=== PATIENT | male | born 1965 | race Caucasian/White ===

== ENCOUNTER 2016-11-13 14:25 | Emergency (ER) | payer OTHER ==
[~2016-11-13 14:25] MED LIST: ALBUAER19 INH; ASPI1TAB83 PO; HYDR1TAB2 PO; HYDR25TA4 PO; LISI-725 PO
[2016-11-13 14:27] VITALS: TEMP 36.4; Ht 180.3 cm
[2016-11-13] MEDS ORDERED: CLN200 PO (14:45)
[2016-11-13] MEDS ORDERED: LISI40TA PO (14:45)
[2016-11-13 16:20] VITALS: BP 125/86; PULSE 60; O2SAT 96
--- NOTE | 2016-11-13 16:27 | DIAGNOSTIC IMAGING REPORT ---
LEFT LOWER EXTREMITY VENOUS DOPPLER HISTORY: Left lower leg pain and edema COMPARISON STUDY: None. FINDINGS: There is normal compressibility, flow, and augmentation within the visualized left lower extremity deep venous system. Of note, the peroneal veins were unable to be visualized. Small amount of peripheral nonocclusive thrombus seen within a superficial vein at the proximal calf. IMPRESSION: No DVT within the left lower extremity. Small amount of peripheral nonocclusive thrombus seen within the superficial vein at the proximal calf. This likely represents chronic thrombus. Electronically signed by: Sean Novak M.D. 11/13/2016 4:25 PM Dictated Date/Time: 11/13/2016 4:24 PM
--- NOTE | 2016-11-13 17:04 | EMERGENCY ROOM VISIT NOTE ---
ED Visit Note First contact with patient: 14:35 Patient evaluated with PA. Patient does have a mild area of erythema and warmth several centimeters across of the left anterior lower leg. DVT study negative for deep thrombosis. Review of management plan of superficial thrombophlebitis.
--- NOTE | 2016-11-13 17:17 | EMERGENCY ROOM VISIT NOTE ---
History First contact with patient: 14:35 Chief Complaint: LEG PAIN,LEG INJURY Stated Complaint: PAIN/SWELLING IN LEFT LEG History of Present Illness The patient is a 51 year old male who presents to the Emergency Room via private vehicle with complaints of "pain/swelling and left leg". Patient states that he has a history of deep vein fibrosis but not a history of blood clots. States that 3-4 days ago just below the knee on the left yu he developed a painful bump. He states this was spontaneous and denies trauma or injury. He states that the last time he developed these he thought they were blood clots but it turned out to be deep vein fibrosis. He states he is an active individual. He rates the pain as a 7/10. He took Tylenol yesterday for the pain. He does smoke but denies any history of blood clots, pulmonary embolism, injury, falls, trauma, chest pain, shortness of breath. Review of Systems A complete 6-point Review of Systems was discussed with the patient, with pertinent positives and negatives listed in the History of Present Illness. All remaining Review of Systems questions can be considered negative unless otherwise specified. Past Medical/Surgical History High blood pressure, bronchitis, emphysema Family History Diabetes, heart disease, blood pressure, cancer, lung disease. Social History Smoking Status: Current Every Day Smoker Social History: Patient lives at home with girlfriend, he does feel safe at home. He admits to tobacco use but denies alcohol use. Tetanus is up-to-date. Current/Historical Medications Scheduled Hydrochlorothiazide (Hctz), 25 MG PO DAILY Lisinopril (Zestril), 20 MG PO BID Sulindac (Sulindac), 200 MG PO BID Allergies Coded Allergies: No Known Allergies (Unverified , 09/28/13) Physical Exam Vital Signs Date Time Temp Pulse Resp B/P Pulse Ox O2 Delivery O2 Flow Rate FiO2 11/13/16 16:20 60 18 125/86 96 Room Air 11/13/16 14:27 36.4 67 18 142/65 95 Room Air Physical Exam VITAL SIGNS - Vital signs and nursing notes were reviewed. Patient is afebrile , his blood pressure is 142/65, he is nontachycardiac and is saturating well on room air 95%. GENERAL -51-year-old male appearing his stated age who is in no acute distress. Communicates well with provider and answers questions appropriately. SKIN - there is evidence of venous insufficiency in the left leg with history of varicosity. No erythema. There is a small palpable ball shaped region in the right superior anterior yu region. This region is slightly tender to palpation. There is no palpable cord in the calf. Negative Homans sign. No evidence of cellulitis. HEAD - NC/AT. EXTREMITIES - patient is neurovascularly intact in the extremities. +5/5 strength noted in UE/LE bilaterally. NEUROLOGIC -Sensory intact to light touch throughout. Medical Decision & Procedures ER Provider Diagnostic Interpretation: LEFT LOWER EXTREMITY VENOUS DOPPLER HISTORY: Left lower leg pain and edema COMPARISON STUDY: None. FINDINGS: There is normal compressibility, flow, and augmentation within the visualized left lower extremity deep venous system. Of note, the peroneal veins were unable to be visualized. Small amount of peripheral nonocclusive thrombus seen within a superficial vein at the proximal calf. IMPRESSION: No DVT within the left lower extremity. Small amount of peripheral nonocclusive thrombus seen within the superficial vein at the proximal calf. This likely represents chronic thrombus. Electronically signed by: Sean Novak M.D. 11/13/2016 4:25 PM Dictated Date/Time: 11/13/2016 4:24 PM Medical Decision Patient was seen and evaluated as above. After obtaining a thorough history and physical examination ultrasound was obtained of the left lower leg to rule out DVT. Negative for DVT. Results as above. Small amount of peripheral nonocclusive thrombus seen within the superficial vein at the proximal calf. This likely represents chronic thrombus. Because this was not deep and was considered a superficial thrombophlebitis left warm compresses will be the best management in this case as the patient is already taking an NSAID. He was educated upon management and instructed to follow-up with his family doctor regarding this. He was told that this was persistent or worsening he is to return for additional ultrasound to rule out DVT. He was educated upon management. He was educated on worrisome symptoms in which to return. He had questions answered prior to discharge and was discharged home in good condition. He is to follow-up with his family doctor regarding today's visit. In the evaluation and treatment of this patient following differential diagnoses were entertained: DVT, superficial phlebitis, cellulitis, venous insufficiency, among others. Impression Primary Impression: Leg pain, left Additional Impression: Peripheral thrombosis Departure Information Dispostion Home / Self-Care Condition GOOD Referrals Juarez Pacheco M.D. (PCP) Patient Instructions A Signature Page, My [facility] [employer] Additional Instructions You were seen in the emergency Department for left leg pain. Ultrasound does NOT reveal any deep vein thrombosis or concerning blood clot in your left leg. There was a superficial blood clot noted but this is not of any concern at this time. ULTRASOUND REVEALS: "No DVT within the left lower extremity. Small amount of peripheral nonocclusive thrombus seen within the superficial vein at the proximal calf. This likely represents chronic thrombus." You may use warm compresses over this and continue regular medications which will help. Please call your family doctor first thing Tuesday morning to schedule follow-up regarding today's visit. Please return to emergency department with any chest pain, shortness of breath, left leg swelling, worsening pain. Please return to the emergency department with any new/concerning symptoms.
== END 2016-11-13 17:31 | disposition home or self-care (01) ==
LOC: C.EDB 14:26 → C.EDD 17:31
DX: I82.812 Embolism and thrombosis of superficial veins of left lower extremity (principal); I10 Essential (primary) hypertension; J43.9 Emphysema, unspecified; F17.200 Nicotine dependence, unspecified, uncomplicated; Z86.718 Personal history of other venous thrombosis and embolism; Z79.899 Other long term (current) drug therapy; Z83.3 Family history of diabetes mellitus; Z82.49 Family history of ischemic heart disease and other diseases of the circulatory system; Z80.9 Family history of malignant neoplasm, unspecified

== ENCOUNTER 2020-09-04 14:40 | Inpatient (IN) ==
--- NOTE | 2020-09-04 15:04 | Emergency Department Note ---
Impression & Plan Acute CHF, Hypoxia ED Provider Note NAME: MONICA SUNSHINE AGE: 55 SEX: M : 1965 ARRIVES VIA: Ambulance INFORMANT: Patient ED PROVIDER(S): Marcellus Helton DO CHIEF COMPLAINT: Shortness of breath HPI: Patient is a 55-year-old male who presents to the ER for shortness of breath. This has been significantly worse over the past 10 days. He does have some intermittent coughing but notes he does not believe that this is significantly worse than what he has had before in the past. He was tested for Covid over a week ago and was negative. He denies any fevers. No loss of taste or smell. He notes over 50 pound weight gain in the past 10 days. Denies any chest pain. No belly pain. No nausea vomiting or diarrhea. He admits to swelling throughout his belly and legs. ROS: See above HPI for pertinent positives & negatives. A total of 10 systems reviewed and were otherwise negative. PAST MEDICAL HISTORY:See Below PAST SURGICAL HISTORY:See Below FAMILY HISTORY:See Below SOCIAL HISTORY:See Below HOME MEDICATIONS:See Below ALLERGIES:See Below VITALS:See Below PHYSICAL EXAMINATION: GENERAL: Sitting up in bed, alert, morbidly obese on 3 L nasal cannula EYE EXAM: normal conjunctiva. OROPHARYNX: no exudate, no erythema, lips, buccal mucosa, and tongue normal and mucous membranes are moist NECK: supple, no nuchal rigidity, no adenopathy, non-tender LUNGS: Clear to auscultation. Normal chest wall mechanics HEART: no murmurs, S1 normal and S2 normal ABDOMEN: abdomen soft, non-tender, normo-active bowel sounds, no masses, no rebound or guarding. BACK: Back is symmetrical on inspection and there is no deformity, no midline tenderness, no CVA tenderness. SKIN: no rashes and no bruising UPPER EXTREMITIES: upper extremities are grossly normal. LOWER EXTREMITIES: Left calf slightly larger than right. pitting edema tracking up to abdomen NEURO EXAM: Normal sensorium, cranial nerves II-XII grossly intact, normal speech, no gross weakness of arms, no gross weakness of legs. MEDICAL DECISION MAKING: Patient is a 55-year-old male who presents ER for 50 pound weight gain and shortness of breath. Upon presentation his pitting edema tracking up to the abdomen. IV was status post orders obtained. Labs showed no significant leukocytosis or anemia. INR unremarkable. BMP with an elevated CO2. Bilirubin LFTs was unremarkable. Troponin was detectable but not positive. proBNP was elevated. Lipase was normal. Covid was negative. Chest x-ray with mild congestion. Patient was given a dose of Lasix. He was updated bedside. Discussed with the hospitalist as he was hypoxic and remained on 3 L nasal cannula throughout his stay in the ER and resting comfortably. Triage Nursing notes reviewed. Prior medical records reviewed Vital Signs: reviewed and remarkable for HTN and hypoxia Differential diagnosis: Differential diagnoses includes but is not limited to pneumonia, bronchitis, COPD/Asthma exacerbation, pneumothorax, pulmonary embolism, congestive heart failure, acute coronary syndrome ER treatment provided: See below Diagnostics interpreted by me: ECG: Sinus rhythm rate 70 Normal axis No PVCs TWI in the septal leads Normal QTC Cardiac Monitoring: An order was placed for continuous cardiac monitoring. The monitor shows a rate of 70 with sinus rhythm. Laboratory studies: As stated above and show below. Imaging studies: Venous Doppler was unremarkable Portable AP upright 1 view the chest was unremarkable Consultation(s): Discussed with hospitalist for further evaluation ED COURSE: Procedures: none Critical Care: I have personally spent 40 minutes of critical care time in the direct management of this patient. This includes bedside care, interpretation of diagnostic studies, and testing, discussion with consultants, patient, and family members, and other required patient management activities. This 40 minutes is in excess of all separately billable procedures. Past Med/Surg History Medical History (Updated 09/04/20 @ 20:48 by Marcellus Helton DO) COPD (chronic obstructive pulmonary disease) HTN (hypertension) Osteoarthritis Tobacco abuse Vitamin D deficiency Surgical History (Updated 09/04/20 @ 17:28 by Tahmina Soares PA-C) No pertinent past surgical history Family History (Updated 09/04/20 @ 16:36 by Tahmina Soares PA-C) Father COPD (chronic obstructive pulmonary disease) Mother Diabetes Social History (Updated 09/04/20 @ 17:30 by Tahmina Soares PA-C) Smoking Status: Former smoker packs per day: 1; Years Smoked: 40; Hx Alcohol Use: Yes Alcohol type: beer Hx Substance Use: Yes Preferred Language: Occitan Communication Ability: Effective 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 Beliefs That Will Affect Care: None marital status: Single Current Living Situation: Spouse Current Living Situation Comment: trailer Feels Safe at Home: Yes Safety Concerns: Feels Safe At This Time Assistive Devices: Glasses Allergies Allergies Allergy/AdvReac Type Severity Reaction Status Date / Time No Known Allergies Allergy Verified 09/04/20 16:40 Home Meds Home Medications Medication Instructions Recorded Confirmed albuterol sulfate 2 puff INHALATION QID 09/04/20 09/04/20 aspirin [Aspir-81] 81 mg PO DAILY 09/04/20 09/04/20 fluticasone propionate [Flovent] 1 puff INHALATION Q12H 09/04/20 09/04/20 hydrochlorothiazide 25 mg PO DAILY 09/04/20 09/04/20 hydrocodone-acetaminophen 1 tab PO Q6H PRN 09/04/20 09/04/20 lisinopril 20 mg PO BID 09/04/20 09/04/20 Results & Data (ED) Vital Signs Vital Signs - 24 hr 09/04/20 14:45 09/04/20 14:55 09/04/20 15:14 Temperature 37.1 C Temperature Source Oral Pulse Rate 74 76 77 Pulse Rate from SpO2 Sensor 67 71 Respiratory Rate 20 Respiratory Effort / Characteristics Non-Labored Blood Pressure 188/99 H 188/99 H Blood Pressure Mean 141 128 Pulse Oximetry 95 96 96 Oxygen Delivery Method Oxymask Oxymask Oxymask Oxygen Flow Rate 3 3 3 Sepsis Recent Fever Within 48 Hours No Sepsis New/Unexplained Change in Mental Status No Sepsis Action Taken by Nursing No Action Required 09/04/20 15:17 09/04/20 15:21 09/04/20 15:29 Temperature Temperature Source Pulse Rate 70 70 Pulse Rate from SpO2 Sensor 68 68 Respiratory Rate 16 20 Respiratory Effort / Characteristics Blood Pressure 174/96 H Blood Pressure Mean 124 Pulse Oximetry 98 98 96 Oxygen Delivery Method Oxymask Oxymask Oxygen Flow Rate 3 3 Sepsis Recent Fever Within 48 Hours Sepsis New/Unexplained Change in Mental Status Sepsis Action Taken by Nursing 09/04/20 15:31 09/04/20 15:40 09/04/20 15:50 Temperature Temperature Source Pulse Rate 67 72 69 Pulse Rate from SpO2 Sensor 69 69 67 Respiratory Rate 20 17 21 Respiratory Effort / Characteristics Blood Pressure Blood Pressure Mean Pulse Oximetry 96 97 97 Oxygen Delivery Method Oxygen Flow Rate Sepsis Recent Fever Within 48 Hours Sepsis New/Unexplained Change in Mental Status Sepsis Action Taken by Nursing 09/04/20 16:00 09/04/20 16:10 09/04/20 16:20 Temperature Temperature Source Pulse Rate 68 67 70 Pulse Rate from SpO2 Sensor 67 67 68 Respiratory Rate 24 19 22 Respiratory Effort / Characteristics Blood Pressure 168/85 H Blood Pressure Mean 110 Pulse Oximetry 96 94 97 Oxygen Delivery Method Oxygen Flow Rate Sepsis Recent Fever Within 48 Hours Sepsis New/Unexplained Change in Mental Status Sepsis Action Taken by Nursing 09/04/20 16:30 09/04/20 16:40 Temperature Temperature Source Pulse Rate 72 68 Pulse Rate from SpO2 Sensor 60 62 Respiratory Rate 22 22 Respiratory Effort / Characteristics Blood Pressure Blood Pressure Mean Pulse Oximetry 95 95 Oxygen Delivery Method Oxygen Flow Rate Sepsis Recent Fever Within 48 Hours Sepsis New/Unexplained Change in Mental Status Sepsis Action Taken by Nursing Laboratory Data Result diagrams: 09/04/20 15:27 09/04/20 15:27 Lab Results 09/04/20 09/04/20 09/04/20 Range/Units 15:27 15:27 15:27 WBC 5.62 (4.8-10.8) K/uL RBC 5.11 (4.7-6.1) M/uL Hgb 15.4 (14.0-18.0) g/dL Hct 52.6 H (42-52) % MCV 102.9 H (80-100) fL MCH 30.1 (25-34) pg MCHC 29.3 L (32-36) g/dL Plt Count 187 (130-400) K/uL Immature Gran % (Auto) 0.2 % Neut % (Auto) 72.6 % Lymph % (Auto) 14.2 % [place] % (Auto) 11.6 % Eos % (Auto) 1.2 % Baso % (Auto) 0.2 % Neut # (Auto) 4.08 (1.4-6.5) K/uL Lymph # (Auto) 0.80 L (1.2-3.4) K/uL [place] # (Auto) 0.65 H (0.11-0.59) K/uL Eos # (Auto) 0.07 (0-0.5) K/uL Baso # (Auto) 0.01 (0-0.2) K/uL Immature Gran # (Auto) 0.01 (0.00-0.02) K/uL PT 11.8 (9.0-12.0) Seconds INR 1.1 (0.9-1.1) APTT 28.2 (21.0-31.0) Seconds PTT Ratio 1.0 Sodium 138 (136-145) mmol/L Potassium 4.1 (3.5-5.1) mmol/L Chloride 98 (98-107) mmol/L Carbon Dioxide 39 H (21-32) mmol/L Anion Gap 1.0 L (3-11) BUN 16 (7-18) mg/dl Creatinine 1.00 (0.6-1.4) mg/dl Est Cr Clr Drug Dosing 158.8 ml/min Est GFR ( Amer) 96.4 Est GFR (Non-Af Amer) 83.2 BUN/Creatinine Ratio 15.5 (10-20) Glucose 100 H (70-99) mg/dl Calcium 8.6 (8.5-10.1) mg/dl Magnesium 2.1 (1.8-2.4) mg/dl Total Bilirubin 0.7 (0.2-1) mg/dl AST 19 (15-37) U/L ALT 18 (12-78) U/L Alkaline Phosphatase 81 (45-117) U/L Troponin I 0.037 (0-0.045) ng/ml NT-Pro-B Natriuret Pep 2783 H (0-900) pg/ml Total Protein 7.5 (6.4-8.2) gm/dl Albumin 3.2 L (3.4-5.0) gm/dl Globulin 4.3 H (2.5-4.0) gm/dl Albumin/Globulin Ratio 0.7 L (0.9-2) Lipase 76 (73-393) U/L TSH 2.250 (0.300-4.500) uIu/ml COVID-19 Eval Order COVID-19 PCR (Negative) 09/04/20 09/04/20 09/04/20 Range/Units 15:27 15:27 15:27 WBC (4.8-10.8) K/uL RBC (4.7-6.1) M/uL Hgb (14.0-18.0) g/dL Hct (42-52) % MCV (80-100) fL MCH (25-34) pg MCHC (32-36) g/dL Plt Count (130-400) K/uL Immature Gran % (Auto) % Neut % (Auto) % Lymph % (Auto) % [place] % (Auto) % Eos % (Auto) % Baso % (Auto) % Neut # (Auto) (1.4-6.5) K/uL Lymph # (Auto) (1.2-3.4) K/uL [place] # (Auto) (0.11-0.59) K/uL Eos # (Auto) (0-0.5) K/uL Baso # (Auto) (0-0.2) K/uL Immature Gran # (Auto) (0.00-0.02) K/uL PT (9.0-12.0) Seconds INR (0.9-1.1) APTT (21.0-31.0) Seconds PTT Ratio Sodium (136-145) mmol/L Potassium (3.5-5.1) mmol/L Chloride (98-107) mmol/L Carbon Dioxide (21-32) mmol/L Anion Gap (3-11) BUN (7-18) mg/dl Creatinine (0.6-1.4) mg/dl Est Cr Clr Drug Dosing ml/min Est GFR ( Amer) Est GFR (Non-Af Amer) BUN/Creatinine Ratio (10-20) Glucose (70-99) mg/dl Calcium (8.5-10.1) mg/dl Magnesium Cancelled (1.8-2.4) mg/dl Total Bilirubin (0.2-1) mg/dl AST (15-37) U/L ALT (12-78) U/L Alkaline Phosphatase (45-117) U/L Troponin I (0-0.045) ng/ml NT-Pro-B Natriuret Pep (0-900) pg/ml Total Protein (6.4-8.2) gm/dl Albumin (3.4-5.0) gm/dl Globulin (2.5-4.0) gm/dl Albumin/Globulin Ratio (0.9-2) Lipase (73-393) U/L TSH Cancelled (0.300-4.500) uIu/ml COVID-19 Eval Order Covid19 Done at [facility] COVID-19 PCR NEGATIVE (Negative) Administered Medications Albuterol (Albuterol Hfa 8 Gm Inhaler) 2 puffs INH QID ARMANI Stop: 10/04/20 18:36 Last Admin: 09/04/20 19:47 Dose: Not Given Documented by: [id number] Albuterol (Albut/Ipratrop 3mg/0.5mg Neb 3 Ml Vial) 3 ml NEB QIDR ARMANI Stop: 10/04/20 18:59 Last Admin: 09/04/20 19:47 Dose: Not Given Documented by: [id number] Enoxaparin Sodium (Enoxaparin Inj 40 Mg/0.4 Ml Syr) 40 mg SQ Q12 ARMANI Stop: 10/04/20 18:36 Last Admin: 09/04/20 20:32 Dose: 40 mg Documented by: [id number] Lisinopril (Lisinopril 20 Mg Tab) 20 mg PO BID ARMANI Stop: 10/04/20 20:59 Last Admin: 09/04/20 20:43 Dose: 10 mg Documented by: [id number] Potassium Chloride (Potassium Chloride 20 Meq Tabcr) 20 meq PO BID ARMANI Stop: 10/04/20 20:59 Last Admin: 09/04/20 20:33 Dose: 20 meq Documented by: [id number] Discontinued Medications Furosemide (Furosemide 40 Mg/4 Ml Vial) 40 mg IV NOW STA Stop: 09/04/20 16:22 Last Admin: 09/04/20 16:44 Dose: 40 mg Documented by: [id number] Discharge Plan Visit Data Chief Complaint: Shortness of Breath/Dyspnea Stated Complaint: sob/cough ED Provider: Marcellus Helton Discharge Problem: Acute CHF, Hypoxia Patient Disposition: Admitted As Inpatient Discharge Instructions Interventions: ED Discharge Assessment Last Done: 09/04/20 17:21 Discharge Problem: Acute CHF Qualifiers: Heart failure type: unspecified Qualified Code(s): I50.9 - Heart failure, unspecified
--- NOTE | 2020-09-04 15:28 | XRay Report ---
XR chest 1V portable HISTORY: Atypical Chest Pain COMPARISON: None. FINDINGS: The cardiac silhouette is mildly enlarged. There is mild diffuse interstitial thickening. N o pleural effusions. No pneumothorax. IMPRESSION: Cardiomegaly with mild diffuse interstitial thickening suggestive of mild congestive change. ACT 112: Negative or not required by law. Electronically signed by: Sean Novak M.D. 09/04/2020 3:26 PM
[2020-09-04 15:55] LABS: INR 1.1 (0.9-1.1); Partial Thromboplastin Time 28.2 Seconds (21.0-31.0); Prothrombin Time 11.8 Seconds (9.0-12.0)
[2020-09-04 16:04] LABS: Albumin Level 3.2 gm/dl (3.4-5.0); BUN Creatinine Ratio 15.5 (10-20); Calcium 8.6 mg/dl (8.5-10.1); Creatinine Clr Calc Pharmacy 158.8 ml/min; Est GFR (African American) 96.4; Est GFR (Non-African American) 83.2; Potassium 4.1 mmol/L (3.5-5.1)
[2020-09-04 16:05] LABS: Basophils # (auto) 0.01 K/uL (0-0.2); Basophils % (auto) 0.2 %; Eosinophils # (auto) 0.07 K/uL (0-0.5); Eosinophils % (auto) 1.2 %; Hematocrit (blood only) 52.6 % (42-52); Hemoglobin 15.4 g/dL (14.0-18.0); Immature Granulocytes # (auto) 0.01 K/uL (0.00-0.02); Immature Granulocytes % (auto) 0.2 %; Lymphocytes % (auto) 14.2 %; Mean Corpuscular Hemoglobin 30.1 pg (25-34); Mean Corpuscular Hgb Conc 29.3 g/dL (32-36); Mean Corpuscular Volume 102.9 fL (80-100); Monocytes # (auto) 0.65 K/uL (0.11-0.59); Monocytes % (auto) 11.6 %; Neutrophils # (auto) 4.08 K/uL (1.4-6.5); Neutrophils % (auto) 72.6 %; Platelet Count 187 K/uL (130-400); Red Blood Count 5.11 M/uL (4.7-6.1); White Blood Count 5.62 K/uL (4.8-10.8)
[2020-09-04 16:09] LABS: Albumin Globulin Ratio 0.7 (0.9-2); Bilirubin,Total 0.7 mg/dl (0.2-1); Globulin 4.3 gm/dl (2.5-4.0); Total Protein 7.5 gm/dl (6.4-8.2); Troponin I 0.037 ng/ml (0-0.045)
[2020-09-04] MEDS ORDERED: FUROSEMIDE 40 MG/4 ML VIAL IV STA (16:21)
--- NOTE | 2020-09-04 17:37 | History & Physical Report ---
Date of Service September 04, 2020 Assessment & Plan (1) Hypoxia: (2) Acute CHF: This is a 55-year-old male who has significant past medical history of morbid obesity, COPD, HTN, history of TIA, vitamin D deficiency, osteoarthritis, history of tobacco abuse who presents to ED secondary to LEUNG x2 weeks and weight gain of 60 pounds. Likely Acute CHF - hx of diastolic dysfunction. Pt Denies stephanie chest pain, but trop detectable. hx of stress echo in 2009 which revealed diastolic dysfunction. admit to tele Pt received lasix 40mg IV in ED - monitor response Start Lasix 40mg IV BID 17, place on potassium supplement obtain echocardiogram lower extremity venous duplex daily weights, stict I and O, HH and low na diet cycle troponin, check tsh and mag (3) COPD (chronic obstructive pulmonary disease): pt with expiratory wheezing bilaterally No stephanie exacerbation as he does not have increased cough or sputum production. DuoNebs 4 times daily, encourage incentive spirometer May have component of cardiac asthma Reevaluate daily Continue Flovent or formulary alternative (4) HTN (hypertension): Bp elevated in ED likely in setting of acute CHF and respiratory distress with hypoxia improving with lasix on lisinopril and HCTZ as outpt hold hctz while on lasix (5) Osteoarthritis: prn oxycodone (6) Tobacco abuse: pt states he quit smoking 40 pack yr hx continue to encourage cessation (7) DVT prophylaxis: SQ Lovenox BID Disposition: admit to tele Follow up: PCP Dr. Pacheco upon discharge Pt was seen and examined in collaboration with Dr. Jernigan, please see addendum History of Present Illness Chief Complaint: LEUNG x2 weeks; weight gain of 60 pounds. Primary Care Provider: Juarez Pacheco MD This is a 55-year-old male who has significant past medical history of morbid obesity, COPD, HTN, history of TIA, vitamin D deficiency, osteoarthritis, history of tobacco abuse who presents to ED secondary to LEUNG x2 weeks and weight gain of 60 pounds. He was seen and evaluated by PCP yesterday for above complaints who referred to ED although patient refused. He states over the past 2 weeks he has notably become more short of breath. He does have history of COPD secondary to significant tobacco use, but currently is getting short of breath with even the littlest activities. He also occasionally gets short of breath at rest. He has 4 pillow orthopnea. He denies PND. He does not wear CPAP or BiPAP at at bedtime. He does not wear oxygen on a regular basis although, "my girlfriend has oxygen so I occasionally use hers." He admits to approximately 60 pound weight gain. 1 year ago he was 435 pounds. Yesterday he was 507 pounds. He admits to increased abdominal bloating and lower extremity edema. He feels legs are more swollen than usual. He denies prior history of DVT. He denies fever, chills, sweats, lightheadedness, dizziness, syncope, chest pain, hemoptysis, nausea, vomiting, abdominal pain. He does have a chronic cough with occasional production. He denies any purulent production or any increased in sputum amount. He states he recently got over a more serious cough. He was tested for Covid 3 times in the past 10 days all were negative. He denies any prior history of CAD or CHF. In ED patient remained blood pressure significantly elevated at 188/99. Improved to 168/85 during my examination post IV Lasix. Hypoxic on arrival at 85% on room air. Required 3 L of O2 supplementation via OxyMax. CBC generally unremarkable. CMP revealed elevated CO2 39, glucose 100, BUN 16, creatinine 1.00, proBNP 2783, troponin 0.037. Chest x-ray revealed mild congestive change. He received 40 mg IV Lasix while in ED. He has not yet urinated. Allergies Allergy/AdvReac Type Severity Reaction Status Date / Time No Known Allergies Allergy Verified 09/04/20 16:40 Home Medications Home Medications Medication Instructions Recorded Confirmed Type albuterol sulfate 2 puff INHALATION QID 09/04/20 09/04/20 History aspirin [Aspir-81] 81 mg PO DAILY 09/04/20 09/04/20 History fluticasone propionate [Flovent] 1 puff INHALATION Q12H 09/04/20 09/04/20 History hydrochlorothiazide 25 mg PO DAILY 09/04/20 09/04/20 History hydrocodone-acetaminophen 1 tab PO Q6H PRN 09/04/20 09/04/20 History lisinopril 20 mg PO BID 09/04/20 09/04/20 History Past Med/Surg History Medical History (Updated 09/04/20 @ 17:45 by Tahmina Soares PA-C) COPD (chronic obstructive pulmonary disease) HTN (hypertension) Osteoarthritis Tobacco abuse Vitamin D deficiency Surgical History (Updated 09/04/20 @ 17:28 by Tahmina Soares PA-C) No pertinent past surgical history Family History (Updated 09/04/20 @ 16:36 by Tahmina Soares PA-C) Father COPD (chronic obstructive pulmonary disease) Mother Diabetes Social History (Updated 09/04/20 @ 17:30 by Tahmina Soares PA-C) Smoking Status: Former smoker packs per day: 1; Years Smoked: 40; Hx Alcohol Use: Yes Alcohol type: beer Hx Substance Use: Yes Preferred Language: Czech Communication Ability: Effective Propagation Manager Required: No Beliefs That Will Affect Care: None marital status: Single Current Living Situation: Spouse Current Living Situation Comment: trailer Feels Safe at Home: Yes Safety Concerns: Feels Safe At This Time Assistive Devices: Glasses Review of Systems Review of Systems: All systems reviewed & are unremarkable except as noted in HPI & below Physical Exam Physical Exam: Constitutional: Morbidly obese, male, sitting up in bed, increased respiratory rate, vitals as above, sitting up in bed, pleasant, conversing easily Head: Normocephalic, Atraumatic Eyes: PERRL, conjunctivae normal, anicteric sclerae ENMT: external ear and nose normal, oropharynx normal Neck: trachea midline, no thyromegaly normal visual inspection Respiratory: Increased respiratory effort, CTA B with diffuse expiratory wheezing throughout, no rales or rhonchi, no accessory muscle use Cardiovascular: Distant heart sounds secondary to body habitus, RRR, no murmur, bilateral lower extremity venous stasis changes, no erythema, no warmth, no pain to palpation, negative Homans' sign, bilateral +3 pitting edema Vessels: no JVD but difficult to assess given body habitus, no carotid bruit Chest: normal inspection of chest Abdomen:protuberant abd, firm, normal bowel sounds, nontender, large panus Musculoskeletal: no cyanosis or clubbing, extremities motor strength 5/5 Skin: no rashes, warm and dry normal turgor Neurologic: PERRL, EOMI, accommodation nl, no face palsy, no dysarthria CN's II-XI intact bilaterally and moves all extremities Psychiatric: A+Ox3, euthymic affect : deferred Results & Data Results & Data ([facility]) Vital Signs (Past 12 Hours) Vital Signs Temp Pulse Resp BP Pulse Ox 09/04/20 16:40 68 22 95 09/04/20 16:30 72 22 95 09/04/20 16:20 70 22 97 09/04/20 16:10 67 19 94 09/04/20 16:00 68 24 168/85 H 96 09/04/20 15:50 69 21 97 09/04/20 15:40 72 17 97 09/04/20 15:31 67 20 96 09/04/20 15:29 70 20 174/96 H 96 09/04/20 15:21 70 16 98 09/04/20 15:17 98 09/04/20 15:14 77 96 09/04/20 14:55 37.1 C 76 20 188/99 H 96 09/04/20 14:45 74 188/99 H 95 Laboratory Results Short CBC 09/04/20 09/04/20 Range/Units 15:27 15:27 WBC 5.62 (4.8-10.8) K/uL Hgb 15.4 (14.0-18.0) g/dL Hct 52.6 H (42-52) % Plt Count 187 (130-400) K/uL NT-Pro-B Natriuret Pep 2783 H (0-900) pg/ml BMP 09/04/20 15:27 Sodium 138 Potassium 4.1 Chloride 98 Carbon Dioxide 39 H BUN 16 Creatinine 1.00 Glucose 100 H Calcium 8.6 Cardiac Enzymes 09/04/20 Range/Units 15:27 Troponin I 0.037 (0-0.045) ng/ml Liver Function 09/04/20 Range/Units 15:27 Total Bilirubin 0.7 (0.2-1) mg/dl AST 19 (15-37) U/L ALT 18 (12-78) U/L Alkaline Phosphatase 81 (45-117) U/L Albumin 3.2 L (3.4-5.0) gm/dl Diagnostic Findings CXR: IMPRESSION: Cardiomegaly with mild diffuse interstitial thickening suggestive of mild congestive change. Medications Administered Discontinued Medications Furosemide (Furosemide 40 Mg/4 Ml Vial) 40 mg IV NOW STA Stop: 09/04/20 16:22 Last Admin: 10/29/20 16:44 Dose: 40 mg Documented by: [id number] ECG Rate (beats per minute): 70 Rhythm: sinus with SA Findings: + prolonged QT (466ms) Code Status & VTE Plan Code Status Full Code VTE Prophylaxis Plan VTE Prophylaxis will be ordered: Yes Supervising Physician Co-Signing Physician Notes Attending addendum: The patient was seen and examined in telemetry unit He has been feeling a little bit better since admission Denies any significant symptoms at rest Denies any chest pain or palpitation, no abdominal pain, nausea and/or vomiting On examination Lying in bed comfortably Morbidly obese with elevated blood pressure 167/102 Chest-decreased breath sounds bilateral laterally with bibasilar crackles Heart-S1-S2, regular Abdomen-distended, soft, bowel sounds present [id number]+ edema bilaterally CEO AND FOUNDER-alert, awake and oriented x3 Admission labs, EKG and imaging studies reviewed Assessment and plan: Acute CHF -likely diastolic diastolic CHF Hypoxia secondary to CHF is complicated by COPD Ongoing tobacco abuse Hypertension Agree with assessment and plan as outlined above by Anna Jernigan
--- NOTE | 2020-09-04 18:16 | Ultrasound Report ---
ULTRASOUND BILATERAL LOWER EXTREMITY VENOUS CLINICAL HISTORY: Lower extremity edema. COMPARISON STUDY: Left lower extremity venous ultrasound dated 11/13/2016. TECHNIQUE: Real-time, grayscale, and color Doppler sonography of the deep veins of the right and left lower extremity was performed from the inguinal crease to the calf. Compression and augmentation wer e utilized. The examination is degraded by large body habitus. FINDINGS: There is no sonographic evidence of deep venous thrombosis identified in the right or left lower extremity. The common femoral, superficial femoral, and popliteal veins are patent and normally compressible bilaterally. The greater saphenous vein and the profunda femoris vein at the junction w ith the common femoral vein are clear in both legs. The calf vessels were not well assessed but clear as imaged. IMPRESSION: There is no sonographic evidence of deep venous thrombosis identified in the right or lef t lower extremity. ACT 112: Negative or not required by law. Electronically signed by: Edmundo Stewart M.D. 09/04/2020 6:15 PM
[2020-09-04] MEDS ORDERED: ACETAMINOPHEN 325 MG TAB PO PRN (18:37)
[2020-09-04] MEDS ORDERED: ALUMINUM/MAGNESIUM SUSP 30 ML UDC PO PRN (18:37)
[2020-09-04] MEDS ORDERED: MAGNESIUM HYDROXIDE SUSP 30 ML UDC PO PRN (18:37)
[2020-09-04] MEDS ORDERED: POLYETHYLENE (MIRALAX) 17 GM PACK PO PRN (18:37)
[2020-09-04] MEDS: ALBUTEROL HFA 8 GM INHALER INH SCH ×2 (19:47→20:58)
[2020-09-04] MEDS: ALBUT/IPRATROP 3MG/0.5MG NEB 3 ML VIAL NEB SCH (19:47)
[2020-09-04 19:57] LABS: Magnesium 2.1 mg/dl (1.8-2.4); Thyroid Stimulating Hormone 2.25 uIu/ml (0.300-4.500)
[2020-09-04] MEDS: ENOXAPARIN INJ 40 MG/0.4 ML SYR SQ SCH ×2 (20:32→21:45)
[2020-09-04] MEDS: POTASSIUM CHLORIDE CRTAB 20 MEQ TABCR PO SCH (20:33)
[2020-09-04] MEDS: lisinopril 20 MG TAB PO SCH ×2 (20:33→20:43)
[2020-09-04] MEDS ORDERED: ALBUTEROL HFA 8 GM INHALER INH SCH (21:00)
[2020-09-04] MEDS: FLUTICASONE FUROATE 100MCG 14 PUFFS/INHALER INH SCH (21:45)
[2020-09-05 03:48] LABS: Hemoglobin 16.3 g/dL (14.0-18.0); Mean Corpuscular Hgb Conc 30.2 g/dL (32-36); Mean Corpuscular Volume 102.7 fL (80-100); Mean Platelet Volume 10.1 fL (7.4-10.4); Platelet Count 170 K/uL (130-400); RDW Coefficient of Variation 15.5 % (11.5-14.5); RDW Standard Deviation 58.1 fL (36.4-46.3); Red Blood Count 5.26 M/uL (4.7-6.1); White Blood Count 7.03 K/uL (4.8-10.8)
[2020-09-05 04:23] LABS: Albumin Globulin Ratio 0.8 (0.9-2); Albumin Level 3.3 gm/dl (3.4-5.0); BUN Creatinine Ratio 16.3 (10-20); Bilirubin,Total 0.8 mg/dl (0.2-1); Calcium 8.4 mg/dl (8.5-10.1); Creatinine Clr Calc Pharmacy 160.1 ml/min; Est GFR (African American) 101.3; Est GFR (Non-African American) 87.4; Globulin 4.1 gm/dl (2.5-4.0); Magnesium 2.1 mg/dl (1.8-2.4); Potassium 4.2 mmol/L (3.5-5.1); Total Protein 7.4 gm/dl (6.4-8.2); Troponin I 0.036 ng/ml (0-0.045)
--- NOTE | 2020-09-05 05:36 | Electrocardiogram Report ---
Test Reason : Blood Pressure : / mmHG Vent. Rate : 070 BPM Atrial Rate : 070 BPM P-R Int : 196 ms QRS Dur : 104 ms QT Int : 432 ms P-R-T Axes : 054 -02 008 degrees QTc Int : 466 ms Poor data quality, interpretation may be adversely affected Normal sinus rhythm with sinus arrhythmia Incomplete right bundle branch block Nonspecific T wave abnormality Abnormal ECG No previous ECGs available Confirmed by Abdias Pacheco ([id number]) on 09/05/2020 5:36:01 AM Referred By: Confirmed By:Abdias Pacheco
[2020-09-05 06:35] LABS: Estimated Average Glucose 131 mg/dl; Hemoglobin A1C 6.2 % (4.5-5.6)
[2020-09-05] MEDS ORDERED: PERFLUTREN LIPID MICROSPHERE (DEFINITY) IV ONE (07:10)
[2020-09-05] MEDS: ALBUT/IPRATROP 3MG/0.5MG NEB 3 ML VIAL NEB SCH ×4 (07:35→19:26)
[2020-09-05] MEDS: ALBUTEROL HFA 8 GM INHALER INH SCH (07:40)
[2020-09-05] MEDS: FUROSEMIDE 40 MG in SYRINGE 0 ML IV SCH ×2 (08:50→16:57)
[2020-09-05] MEDS: ASPIRIN 81 MG ECTAB PO SCH (08:51)
[2020-09-05] MEDS: lisinopril 20 MG TAB PO SCH ×2 (08:51→20:36)
[2020-09-05] MEDS: POTASSIUM CHLORIDE CRTAB 20 MEQ TABCR PO SCH (08:51)
[2020-09-05] MEDS: ENOXAPARIN INJ 40 MG/0.4 ML SYR SQ SCH ×2 (08:52→20:37)
[2020-09-05] MEDS ORDERED: FUROSEMIDE 40 MG/4 ML VIAL IV SCH (09:00)
--- NOTE | 2020-09-05 12:39 | Cardiology Consultation ---
Date of Consultation September 05, 2020 Assessment & Plan (1) Right heart failure with reduced right ventricular function: Patient presents with significant volume overload secondary to right heart failure. Echocardiogram while limited demonstrates generally preserved LV systolic function with dilated right ventricle. Recommendations continue IV diuretics as ordered but may need to be titrated upward. Add spironolactone to her regimen. Nocturnal oximetry ordered will likely require formal sleep study evaluation. Patient should be considered for high risk obesity clinic (2) Pickwickian syndrome: (3) Morbid obesity with BMI of 70 and over, adult: History of Present Illness Reason for Consultation: Acute right heart failure secondary to morbid obesity Requesting Physician: Dr. Jernigan Attending Physician: Aramis Perez MD History of Present Illness Patient is a 55-year-old male whose ongoing and past issues include 1. Morbid obesity 2. Hypertension 3. Chronic obstructive lung disease with past tobacco use 4. Past right heart failure Patient presents now noting increasing difficulty with abdominal distention and lower extremity edema times several weeks to months notes 60 pound weight gain over 1 years time weight now greater than 500 pounds. He notes no associated tachypalpitations dizziness lightness syncope or near syncope. Does follow sodium restriction diet at home. No chest pains. No fevers chills or unexplained infections. No cough hoarseness wheeze or hemoptysis no dysuria hematuria. Lower extremity edema and abdominal distention has been limiting. Notes has been recommended to use sleep apnea therapies at night in past Denies any bleeding issues. Has been compliant with medication Allergies Allergy/AdvReac Type Severity Reaction Status Date / Time No Known Allergies Allergy Verified 09/04/20 16:40 Home Medications Home Medications Medication Instructions Recorded Confirmed Type albuterol sulfate 2 puff INHALATION QID 09/04/20 09/04/20 History aspirin [Aspir-81] 81 mg PO DAILY 09/04/20 09/04/20 History fluticasone propionate [Flovent] 1 puff INHALATION Q12H 09/04/20 09/04/20 [place] hydrochlorothiazide 25 mg PO DAILY 09/04/20 09/04/20 History hydrocodone-acetaminophen 1 tab PO Q6H PRN 09/04/20 09/04/20 History lisinopril 20 mg PO BID 09/04/20 09/04/20 History Patient History Medical History COPD (chronic obstructive pulmonary disease) HTN (hypertension) Osteoarthritis Tobacco abuse Vitamin D deficiency Surgical History No pertinent past surgical history Family History Father COPD (chronic obstructive pulmonary disease) Mother Diabetes Social History Smoking Status: Former smoker packs per day: 1; Years Smoked: 40; Hx Alcohol Use: Yes Alcohol type: beer Hx Substance Use: Yes Preferred Language: Welsh Communication Ability: Effective Special Weapons And Tactics Officer Required: No Beliefs That Will Affect Care: None marital status: Single Current Living Situation: Spouse Current Living Situation Comment: trailer Feels Safe at Home: Yes Safety Concerns: Feels Safe At This Time Assistive Devices: Glasses and Oxygen - Continuous Review of Systems Review of Systems: All systems reviewed & are unremarkable except as noted in HPI & below Physical Exam Constitutional: + morbidly obese Eyes: PERRL, conjunctivae normal, anicteric sclerae ENMT: external ear and nose normal, oropharynx normal Neck: trachea midline, no thyromegaly + thick neck Respiratory: Auscultation: + diminished lung sounds and + wheezes (Scattered with increased with cough) Cardiovascular: Rate/Rhythm: regular rate and regular rhythm Heart Sounds: no murmur (Distant heart sounds) Vessels: no JVD Extremities: + edema (3+) Gastrointestinal (Abdomen): Markedly distended with large panniculus Musculoskeletal: no cyanosis or clubbing, extremities motor strength 5/5 Neurologic: PERRL, EOMI, accommodation nl, no face palsy, no dysarthria Psychiatric: A+Ox3, euthymic affect Results & Data ([facility]) Vital Signs (Past 12 Hours) Vital Signs Temp Pulse Pulse Resp BP Pulse Ox 09/05/20 11:53 36.8 C 89 16 148/84 H 95 09/05/20 11:19 73 16 90 09/05/20 08:00 36.8 C 92 H 16 147/73 H 96 09/05/20 07:39 77 09/05/20 07:38 70 16 94 09/05/20 03:10 36.6 C 73 20 156/90 H 94 Laboratory Results Laboratory Results - last 24 hr 09/04/20 09/04/20 09/04/20 15:27 15:27 15:27 WBC 5.62 RBC 5.11 Hgb 15.4 Hct 52.6 H MCV 102.9 H MCH 30.1 MCHC 29.3 L RDW Std Deviation RDW Coeff of Margaret Plt Count 187 MPV Immature Gran % (Auto) 0.2 Neut % (Auto) 72.6 Lymph % (Auto) 14.2 [place] % (Auto) 11.6 Eos % (Auto) 1.2 Baso % (Auto) 0.2 Neut # (Auto) 4.08 Lymph # (Auto) 0.80 L [place] # (Auto) 0.65 H Eos # (Auto) 0.07 Baso # (Auto) 0.01 Immature Gran # (Auto) 0.01 PT 11.8 INR 1.1 APTT 28.2 PTT Ratio 1.0 Sodium 138 Potassium 4.1 Chloride 98 Carbon Dioxide 39 H Anion Gap 1.0 L BUN 16 Creatinine 1.00 Est Cr Clr Drug Dosing 158.8 Est GFR ( Amer) 96.4 Est GFR (Non-Af Amer) 83.2 BUN/Creatinine Ratio 15.5 Glucose 100 H Estimat Average Glucose Hemoglobin A1c Calcium 8.6 Magnesium 2.1 Total Bilirubin 0.7 AST 19 ALT 18 Alkaline Phosphatase 81 Troponin I 0.037 NT-Pro-B Natriuret Pep 2783 H Total Protein 7.5 Albumin 3.2 L Globulin 4.3 H Albumin/Globulin Ratio 0.7 L Triglycerides Cholesterol LDL Cholesterol, Calc VLDL Cholesterol, Calc HDL Cholesterol Cholesterol/HDL Ratio Lipase 76 TSH 2.250 COVID-19 Eval Order COVID-19 PCR 09/04/20 09/04/20 09/04/20 15:27 15:27 15:27 WBC RBC Hgb Hct MCV MCH MCHC RDW Std Deviation RDW Coeff of Margaret Plt Count MPV Immature Gran % (Auto) Neut % (Auto) Lymph % (Auto) [place] % (Auto) Eos % (Auto) Baso % (Auto) Neut # (Auto) Lymph # (Auto) [place] # (Auto) Eos # (Auto) Baso # (Auto) Immature Gran # (Auto) PT INR APTT PTT Ratio Sodium Potassium Chloride Carbon Dioxide Anion Gap BUN Creatinine Est Cr Clr Drug Dosing Est GFR ( Amer) Est GFR (Non-Af Amer) BUN/Creatinine Ratio Glucose Estimat Average Glucose Hemoglobin A1c Calcium Magnesium Cancelled Total Bilirubin AST ALT Alkaline Phosphatase Troponin I NT-Pro-B Natriuret Pep Total Protein Albumin Globulin Albumin/Globulin Ratio Triglycerides Cholesterol LDL Cholesterol, Calc VLDL Cholesterol, Calc HDL Cholesterol Cholesterol/HDL Ratio Lipase TSH Cancelled COVID- Eval Order Covid19 Done at [facility] COVID-19 PCR NEGATIVE 09/04/20 09/05/20 09/05/20 21:12 03:23 03:23 WBC 7.03 RBC 5.26 Hgb 16.3 Hct 54.0 H MCV 102.7 H MCH 31.0 MCHC 30.2 L RDW Std Deviation 58.1 H RDW Coeff of Margaret 15.5 H Plt Count 170 MPV 10.1 Immature Gran % (Auto) Neut % (Auto) Lymph % (Auto) [place] % (Auto) Eos % (Auto) Baso % (Auto) Neut # (Auto) Lymph # (Auto) [place] # (Auto) Eos # (Auto) Baso # (Auto) Immature Gran # (Auto) PT INR APTT PTT Ratio Sodium 140 Potassium 4.2 Chloride 98 Carbon Dioxide 41 H* Anion Gap 1.0 L BUN 16 Creatinine 0.96 Est Cr Clr Drug Dosing 160.1 Est GFR ( Amer) 101.3 Est GFR (Non-Af Amer) 87.4 BUN/Creatinine Ratio 16.3 Glucose 94 Estimat Average Glucose Hemoglobin A1c Calcium 8.4 L Magnesium 2.1 Total Bilirubin 0.8 AST 20 ALT 19 Alkaline Phosphatase 83 Troponin I 0.032 0.036 NT-Pro-B Natriuret Pep Total Protein 7.4 Albumin 3.3 L Globulin 4.1 H Albumin/Globulin Ratio 0.8 L Triglycerides 83 Cholesterol 96 LDL Cholesterol, Calc 46 VLDL Cholesterol, Calc 17 HDL Cholesterol 33 Cholesterol/HDL Ratio 3 Lipase TSH COVID-19 Eval Order COVID-19 PCR 09/05/20 03:23 WBC RBC Hgb Hct MCV MCH MCHC RDW Std Deviation RDW Coeff of Margaret Plt Count MPV Immature Gran % (Auto) Neut % (Auto) Lymph % (Auto) [place] % (Auto) Eos % (Auto) Baso % (Auto) Neut # (Auto) Lymph # (Auto) [place] # (Auto) Eos # (Auto) Baso # (Auto) Immature Gran # (Auto) PT INR APTT PTT Ratio Sodium Potassium Chloride Carbon Dioxide Anion Gap BUN Creatinine Est Cr Clr Drug Dosing Est GFR ( Amer) Est GFR (Non-Af Amer) BUN/Creatinine Ratio Glucose Estimat Average Glucose 131 Hemoglobin A1c 6.2 H Calcium Magnesium Total Bilirubin AST ALT Alkaline Phosphatase Troponin I NT-Pro-B Natriuret Pep Total Protein Albumin Globulin Albumin/Globulin Ratio Triglycerides Cholesterol LDL Cholesterol, Calc VLDL Cholesterol, Calc HDL Cholesterol Cholesterol/HDL Ratio Lipase TSH COVID-19 Eval Order COVID-19 PCR
[2020-09-05] MEDS ORDERED: SPIRONOLACTONE 12.5 MG TAB PO ONE (13:24)
[2020-09-05] MEDS: HYDROCODONE/ACETAMOPHEN 5/325MG TAB PO PRN (19:17)
[2020-09-05] MEDS: FLUTICASONE FUROATE 100MCG 14 PUFFS/INHALER INH SCH (20:36)
--- NOTE | 2020-09-05 22:11 | Hospitalist Progress Note ---
Date of Service September 05, 2020 Assessment & Plan (1) Acute CHF: Evidence of acute left + right-sided heart failure by exam. Chest x-ray demonstrated pulmonary edema. Echo showed moderate LVH, LVEF 55-60%, dilation of RV and RA. Underlying pulmonary issues as discussed below. Management of CHF per protocol. Cardiology consulted. IV diuretics. (2) Right heart failure with reduced right ventricular function: Morbid obesity. Probable sleep apnea and obesity hypoventilation syndrome. Echo as noted above. Diuretic therapy as noted above. Will probably need nocturnal O2- check nocturnal O2 sats prior to DC. Needs sleep study if not previously performed. (3) HTN (hypertension): Continue lisinopril and diuretics. (4) COPD (chronic obstructive pulmonary disease): Continue bronchodilators. (5) Morbid obesity with BMI of 70 and over, adult: Wt 220 kg. BMI 67.8. Morbid obesity, probably with associated sleep apnea and hypoventilation syndrome --> right sided CHF. Heart healthy diet. (6) Macrocytosis: Check B12, folate, TSH. (7) DVT prophylaxis: SQ enoxaparin adjusted for body weight. (8) Discharge planning issues: Anticipated discharge to home. Family Medicine follow-up with Dr. Pacheco. Admission and Anticipated Discharge Date Admission Date: September 04, 2020 Subjective Recheck for CHF and other problems. Patient seen in their room around 1630. Effective diuresis with IV furosemide. Less SOB. Occasional cough. No chest pain. Review of Systems: Constitutional- no fever. Cardiac- as noted above. Pulmonary- as noted above. GI- no nausea, vomiting, diarrhea, melena, hematochezia. - no urinary symptoms. Otherwise, as noted above. Physical Exam Constitutional: + morbidly obese; no acute distress Respiratory: no respiratory distress Auscultation: + rales and + wheezes Cardiovascular: Rate/Rhythm: regular rate and regular rhythm Heart Sounds: no gallop (none appreciated, but exam limited) and no murmur (none appreciated, but exam limited) Vessels: no JVD (neck veins difficult to assess) Extremities: + edema (3+); no calf tenderness Gastrointestinal (Abdomen): normal bowel sounds, soft, nontender, no hepatosplenomegaly Musculoskeletal: Extremities: no cyanosis Skin: no rashes, warm and dry Psychiatric: Orientation: alert and oriented x 3 Results & Data Results & Data ([facility]) Vital Signs (Past 12 Hours) Vital Signs Temp Pulse Pulse Resp BP Pulse Ox 09/05/20 19:47 36.9 C 84 18 149/89 H 91 09/05/20 19:28 77 16 92 09/05/20 15:36 84 16 79 L 09/05/20 15:16 36.6 C 73 18 130/75 94 09/05/20 14:53 63 09/05/20 11:53 36.8 C 89 16 148/84 H 95 09/05/20 11:19 73 16 90 Laboratory Results 09/05/20 03:23 09/05/20 03:23 (1) Acute CHF Heart failure type: unspecified Qualified Code(s): I50.9 - Heart failure, unspecified
[2020-09-06] MEDS: ALBUT/IPRATROP 3MG/0.5MG NEB 3 ML VIAL NEB SCH ×4 (07:36→19:27)
[2020-09-06] MEDS: ASPIRIN 81 MG ECTAB PO SCH (08:49)
[2020-09-06] MEDS: lisinopril 20 MG TAB PO SCH ×2 (08:49→20:11)
[2020-09-06] MEDS: FUROSEMIDE 40 MG in SYRINGE 0 ML IV SCH ×2 (08:50→16:52)
[2020-09-06] MEDS: ENOXAPARIN INJ 40 MG/0.4 ML SYR SQ SCH ×2 (08:50→20:11)
[2020-09-06 09:06] LABS: BUN Creatinine Ratio 16.8 (10-20); Calcium 8.8 mg/dl (8.5-10.1); Creatinine Clr Calc Pharmacy 166.4 ml/min; Est GFR (African American) 101.3; Est GFR (Non-African American) 87.4; Potassium 3.8 mmol/L (3.5-5.1)
[2020-09-06 09:07] LABS: Folate (Folic Acid) 8.8 ng/ml (>5.38)
[2020-09-06] MEDS: SPIRONOLACTONE 12.5 MG TAB PO SCH (11:31)
--- NOTE | 2020-09-06 14:58 | Cardiology Progress Note ---
Date of Service September 06, 2020 Assessment & Plan (1) Right heart failure with reduced right ventricular function: Patient presents with significant volume overload secondary to right heart failure. Echocardiogram while limited demonstrates generally preserved LV systolic function with dilated right ventricle. Continue aggressive diuresis with Lasix and oral spironolactone. 38 desaturation events overnight will refer to our sleep medicine colleagues upon discharge. Continue strict I's and O's. Patient should be considered for high risk obesity clinic (2) Pickwickian syndrome: (3) Morbid obesity with BMI of 70 and over, adult: Admission and Anticipated Discharge Date Admission Date: September 04, 2020 Subjective Patient seen and examined, chart reviewed. States he felt well overnight. Does not see any significant improvement in lower extremity edema but does note significant diuresis. Shortness of breath improved from admission. Denies chest pain, palpitations, lightheadedness or dizziness. Telemetry reviewed: Normal sinus rhythm with occasional atrial and ventricular ectopy. Review of Systems Review of Systems: All systems reviewed & are unremarkable except as noted in HPI & below Physical Exam Physical Exam: Physical Exam: General: Awake, alert and oriented x 3. No acute distress. Morbidly obese with mild conversational dyspnea. HEENT: Normocephalic, atraumatic. Pupils equal, round and reactive to light and accommodation. Extraocular muscles are intact. Anicteric sclera. Moist mucous membranes. Neck: No JVD. No bruit. Cardiovascular: Distant, unable to appreciate. Pulmonary: Decreased breath sounds bilaterally without rales rhonchi or wheezing. Abdomen: Bowel sounds x 4, soft. No rebound, guarding or tenderness. No organomegaly. Extremities: No clubbing, cyanosis. Significant 2+ bilateral lower extremity pitting edema. Barely palpable pedal pulses bilaterally. Skin: Warm and dry. Results & Data ([facility]) Vital Signs (Past 12 Hours) Vital Signs Temp Pulse Pulse Pulse Resp BP Pulse Ox 09/06/20 11:51 36.8 C 93 H 18 133/73 91 09/06/20 10:58 71 18 93 09/06/20 08:16 36.4 C L 71 20 150/78 H 93 09/06/20 07:36 80 16 93 09/06/20 07:27 72 09/06/20 04:09 36.4 C L 83 18 148/69 H 93 09/06/20 03:40 65 Pulse Ox 09/06/20 11:51 09/06/20 10:58 09/06/20 08:16 09/06/20 07:36 09/06/20 07:27 09/06/20 04:09 09/06/20 03:40 90
--- NOTE | 2020-09-06 18:55 | Hospitalist Progress Note ---
Date of Service September 06, 2020 Assessment & Plan (1) Acute CHF: Evidence of acute left + right-sided heart failure by exam. Chest x-ray demonstrated pulmonary edema. Echo showed moderate LVH, LVEF 55-60%, dilation of RV and RA. Underlying pulmonary issues as discussed below. Management of CHF per protocol. Cardiology consulted. Weights fluctuating, but may not be accurate. 2000 ml fluid restriction recommended. Continue IV diuretics. (2) Right heart failure with reduced right ventricular function: Morbid obesity. Probable sleep apnea and obesity hypoventilation syndrome. Echo as noted above. Diuretic therapy as noted above. Will probably need nocturnal O2- check nocturnal O2 sats prior to DC. Needs sleep study if not previously performed. (3) HTN (hypertension): Continue lisinopril and diuretics. (4) COPD (chronic obstructive pulmonary disease): Continue bronchodilators. (5) Morbid obesity with BMI of 70 and over, adult: Wt 220 kg. BMI 67.8. Morbid obesity, probably with associated sleep apnea and hypoventilation syndrome --> right sided CHF. Heart healthy diet. (6) Macrocytosis: B12 = 351. Folate = 8.8. TSH = 2.25. (7) DVT prophylaxis: SQ enoxaparin adjusted for body weight. (8) Discharge planning issues: Anticipated discharge to home. Family Medicine follow-up with Dr. Pacheco. Admission and Anticipated Discharge Date Admission Date: September 04, 2020 Subjective Recheck for CHF and other problems. Patient seen in their room around 1040. Continues to have effective diuresis with IV furosemide. Less SOB. Occasional cough. No chest pain. Review of Systems: Constitutional- no fever. Cardiac- as noted above. Pulmonary- as noted above. GI- no nausea, vomiting, diarrhea, melena, hematochezia. - no urinary symptoms. Otherwise, as noted above. Physical Exam Constitutional: + morbidly obese; no acute distress Respiratory: no respiratory distress Auscultation: + rales and + wheezes Cardiovascular: Rate/Rhythm: regular rate and regular rhythm Heart Sounds: no gallop (none appreciated, but exam limited) and no murmur (none appreciated, but exam limited) Vessels: no JVD (neck veins difficult to assess) Extremities: + edema (3+); no calf tenderness Gastrointestinal (Abdomen): normal bowel sounds, soft, nontender, no hepatosplenomegaly Musculoskeletal: Extremities: no cyanosis Skin: no rashes, warm and dry Psychiatric: Orientation: alert and oriented x 3 Results & Data Results & Data ([facility]) Vital Signs (Past 12 Hours) Vital Signs Temp Pulse Pulse Resp BP Pulse Ox 09/06/20 15:16 76 18 92 09/06/20 14:57 37.2 C 81 78 20 155/83 H 91 09/06/20 11:51 36.8 C 93 H 18 133/73 91 09/06/20 10:58 71 18 93 09/06/20 08:16 36.4 C L 71 20 150/78 H 93 09/06/20 07:36 80 16 93 09/06/20 07:27 72 Laboratory Results 09/06/20 08:09 (1) Acute CHF Heart failure type: unspecified Qualified Code(s): I50.9 - Heart failure, unspecified
[2020-09-06] MEDS: FLUTICASONE FUROATE 100MCG 14 PUFFS/INHALER INH SCH (20:11)
[2020-09-07] MEDS: ALBUT/IPRATROP 3MG/0.5MG NEB 3 ML VIAL NEB SCH ×4 (07:26→19:34)
[2020-09-07 08:08] LABS: BUN Creatinine Ratio 18.1 (10-20); Calcium 8.8 mg/dl (8.5-10.1); Creatinine Clr Calc Pharmacy 171.8 ml/min; Est GFR (African American) 105.2; Est GFR (Non-African American) 90.8; Potassium 4.2 mmol/L (3.5-5.1)
[2020-09-07] MEDS: FUROSEMIDE 40 MG in SYRINGE 0 ML IV SCH ×2 (08:12→17:00)
[2020-09-07] MEDS: lisinopril 20 MG TAB PO SCH ×2 (08:12→21:43)
[2020-09-07] MEDS: ENOXAPARIN INJ 40 MG/0.4 ML SYR SQ SCH ×2 (08:13→21:43)
[2020-09-07] MEDS: SPIRONOLACTONE 12.5 MG TAB PO SCH (08:13)
[2020-09-07] MEDS: ASPIRIN 81 MG ECTAB PO SCH (08:13)
[2020-09-07 08:28] LABS: Anion Gap -0.2 (3-11)
--- NOTE | 2020-09-07 13:22 | Cardiology Progress Note ---
Date of Service September 07, 2020 Assessment & Plan (1) Right heart failure with reduced right ventricular function: Patient presents with significant volume overload secondary to right heart failure. Echocardiogram while limited demonstrates generally preserved LV systolic function with dilated right ventricle. Continue aggressive diuresis with Lasix and oral spironolactone. 38 desaturation events overnight will refer to our sleep medicine colleagues upon discharge. Continue strict I's and O's. Patient should be considered for high risk obesity clinic Bicarb level is elevated with ongoing diuresis. There is no doubt that he is a chronic CO2 retainer and may be his baseline? May benefit from evaluation by our nephrology colleagues. (2) Pickwickian syndrome: (3) Morbid obesity with BMI of 70 and over, adult: Admission and Anticipated Discharge Date Admission Date: September 04, 2020 Subjective Patient seen and examined, chart reviewed. Seated on the bed eating lunch. States lower extremity edema and breathing are improving but not yet back to baseline. Denies chest pain, palpitations, lightheadedness or dizziness. Telemetry reviewed: Normal sinus rhythm without arrhythmia or significant ectopy. Review of Systems Review of Systems: All systems reviewed & are unremarkable except as noted in HPI & below Physical Exam Physical Exam: Physical Exam: General: Awake, alert and oriented x 3. No acute distress. Morbidly obese with mild conversational dyspnea. HEENT: Normocephalic, atraumatic. Pupils equal, round and reactive to light and accommodation. Extraocular muscles are intact. Anicteric sclera. Moist mucous membranes. Neck: No JVD. No bruit. Cardiovascular: Distant, unable to appreciate. Pulmonary: Decreased breath sounds bilaterally without rales rhonchi or wheezing. Abdomen: Bowel sounds x 4, soft. No rebound, guarding or tenderness. No organomegaly. Extremities: No clubbing, cyanosis. Significant 2+ bilateral lower extremity pitting edema. Barely palpable pedal pulses bilaterally. Skin: Warm and dry. Results & Data ([facility]) Vital Signs (Past 12 Hours) Vital Signs Temp Pulse Pulse Pulse Resp BP Pulse Ox 09/07/20 12:00 36.5 C 88 20 140/72 90 09/07/20 11:00 73 18 98 09/07/20 08:00 36.7 C 83 18 136/80 90 09/07/20 07:27 72 18 98 09/07/20 07:15 88 09/07/20 03:37 36.4 C L 76 18 119/63 90
--- NOTE | 2020-09-07 17:19 | Hospitalist Progress Note ---
Date of Service September 07, 2020 Assessment & Plan (1) Acute CHF: Evidence of acute left + right-sided heart failure by exam. Chest x-ray demonstrated pulmonary edema. Echo showed moderate LVH, LVEF 55-60%, dilation of RV and RA. Underlying pulmonary issues as discussed below. Management of CHF per protocol. Cardiology consulted. Weights fluctuating, but may not be accurate. 2000 ml fluid restriction recommended. Continue IV diuretics. (2) Right heart failure with reduced right ventricular function: Morbid obesity. Probable sleep apnea and obesity hypoventilation syndrome. Echo as noted above. Diuretic therapy as noted above. Will probably need nocturnal O2. Pulse oximetry night of 09/05 - 09/06 showed 38 desaturation events with sats as low as 81%. May need repeat study closer to discharge to qualify for home nocturnal O2. Will need outpatient sleep study. (3) HTN (hypertension): Continue lisinopril and diuretics. (4) COPD (chronic obstructive pulmonary disease): Continue bronchodilators. (5) Morbid obesity with BMI of 70 and over, adult: Wt 220 kg. BMI 67.8. Morbid obesity, probably with associated sleep apnea and hypoventilation syndrome --> right sided CHF. Heart healthy diet. (6) Macrocytosis: B12 = 351. Folate = 8.8. TSH = 2.25. (7) DVT prophylaxis: SQ enoxaparin adjusted for body weight. (8) Discharge planning issues: Anticipated discharge to home. Family Medicine follow-up with Dr. Pacheco. Cardiology follow-up to be arranged. Sleep study to be arranged. Admission and Anticipated Discharge Date Admission Date: September 04, 2020 Subjective Recheck for CHF and other problems. Patient seen in their room around 0930. Less SOB. Cough improved. No chest pain. Persistent dependent edema. Review of Systems: Constitutional- no fever. Cardiac- as noted above. Pulmonary- as noted above. GI- no nausea, vomiting, diarrhea, melena, hematochezia. - no urinary symptoms. Otherwise, as noted above. Physical Exam Constitutional: + morbidly obese; no acute distress Respiratory: no respiratory distress Auscultation: + rales (few bibasilar) and + wheezes (improved) Cardiovascular: Rate/Rhythm: regular rate and regular rhythm Heart Sounds: no gallop (none appreciated, but exam limited) and no murmur (none appreciated, but exam limited) Vessels: no JVD (neck veins difficult to assess) Extremities: + pedal edema and + edema; + abnormal capillary refill and no calf tenderness Gastrointestinal (Abdomen): normal bowel sounds, soft, nontender, no hepatosplenomegaly Musculoskeletal: Extremities: no cyanosis Skin: no rashes, warm and dry Psychiatric: Orientation: alert and oriented x 3 Results & Data Results & Data ([facility]) Vital Signs (Past 12 Hours) Vital Signs Temp Pulse Pulse Pulse Resp BP Pulse Ox 09/07/20 16:00 36.8 C 78 18 157/74 H 93 09/07/20 15:08 75 18 94 09/07/20 14:44 82 09/07/20 12:00 36.5 C 88 20 140/72 90 09/07/20 11:00 73 18 98 09/07/20 08:00 36.7 C 83 18 136/80 90 09/07/20 07:27 72 18 98 09/07/20 07:15 88 Laboratory Results 09/07/20 07:32 (1) Acute CHF Heart failure type: unspecified Qualified Code(s): I50.9 - Heart failure, unspecified
[2020-09-07] MEDS: HYDROCODONE/ACETAMOPHEN 5/325MG TAB PO PRN (19:09)
[2020-09-07] MEDS: FLUTICASONE FUROATE 100MCG 14 PUFFS/INHALER INH SCH (21:43)
[2020-09-08] MEDS: ALBUT/IPRATROP 3MG/0.5MG NEB 3 ML VIAL NEB SCH ×4 (07:13→19:46)
[2020-09-08 07:29] LABS: BUN Creatinine Ratio 17.9 (10-20); Calcium 8.6 mg/dl (8.5-10.1); Creatinine Clr Calc Pharmacy 153.6 ml/min; Est GFR (African American) 97.6; Est GFR (Non-African American) 84.2; Potassium 3.9 mmol/L (3.5-5.1)
[2020-09-08] MEDS: ENOXAPARIN INJ 40 MG/0.4 ML SYR SQ SCH ×2 (08:43→21:15)
[2020-09-08] MEDS: SPIRONOLACTONE 12.5 MG TAB PO SCH (08:43)
[2020-09-08] MEDS: FUROSEMIDE 40 MG in SYRINGE 0 ML IV SCH ×3 (08:43→21:15)
[2020-09-08] MEDS: lisinopril 20 MG TAB PO SCH ×2 (08:43→21:15)
[2020-09-08] MEDS: ASPIRIN 81 MG ECTAB PO SCH (08:43)
--- NOTE | 2020-09-08 13:07 | Cardiology Progress Note ---
Date of Service September 08, 2020 Assessment & Plan (1) Right heart failure with reduced right ventricular function: Patient presents with significant volume overload secondary to right heart failure. Echocardiogram while limited demonstrates generally preserved LV systolic function with dilated right ventricle. Continue aggressive diuresis with Lasix and oral spironolactone. 38 desaturation events overnight will refer to our sleep medicine colleagues upon discharge. Continue strict I's and O's. Patient should be considered for high risk obesity clinic Bicarb level is elevated with ongoing diuresis. There is no doubt that he is a chronic CO2 retainer and may be his baseline? May benefit from evaluation by our nephrology colleagues. (2) Pickwickian syndrome: (3) Morbid obesity with BMI of 70 and over, adult: (4) Acute CHF: Admission and Anticipated Discharge Date Admission Date: September 04, 2020 Subjective Patient seen and examined, chart reviewed. States he feels well and remains anxious for discharge. No significant improvement of lower extremity edema continues to deny chest pain, shortness of breath, palpitations, lightheadedness, dizziness or syncope. Telemetry reviewed: Normal sinus rhythm without arrhythmia or significant ectopy. Review of Systems Review of Systems: All systems reviewed & are unremarkable except as noted in HPI & below Physical Exam Physical Exam: Physical Exam: General: Awake, alert and oriented x 3. No acute distress. Morbidly obese with mild conversational dyspnea. HEENT: Normocephalic, atraumatic. Pupils equal, round and reactive to light and accommodation. Extraocular muscles are intact. Anicteric sclera. Moist mucous membranes. Neck: No JVD. No bruit. Cardiovascular: Distant, unable to appreciate. Pulmonary: Decreased breath sounds bilaterally without rales rhonchi or wheezing. Abdomen: Bowel sounds x 4, soft. No rebound, guarding or tenderness. No organomegaly. Extremities: No clubbing, cyanosis. Significant 2+ bilateral lower extremity pitting edema. Barely palpable pedal pulses bilaterally. Skin: Warm and dry. Results & Data ([facility]) Vital Signs (Past 12 Hours) Vital Signs Temp Pulse Pulse Pulse Resp BP BP 09/08/20 11:18 36.4 C L 85 18 144/80 H 09/08/20 11:10 115 H 20 09/08/20 07:47 72 09/08/20 07:46 36.6 C 72 20 147/69 H 09/08/20 07:13 86 20 11/02/20 03:54 36.4 C L 89 18 118/69 Pulse Ox 09/08/20 11:18 94 09/08/20 11:10 95 09/08/20 07:47 09/08/20 07:46 92 09/08/20 07:13 94 09/08/20 03:54 90 (1) Acute CHF Heart failure type: unspecified Qualified Code(s): I50.9 - Heart failure, unspecified
--- NOTE | 2020-09-08 21:10 | Hospitalist Progress Note ---
Date of Service September 08, 2020 Assessment & Plan (1) Acute CHF: Evidence of acute left + right-sided heart failure by exam. Chest x-ray demonstrated pulmonary edema. Echo showed moderate LVH, LVEF 55-60%, dilation of RV and RA. Underlying pulmonary issues as discussed below. Management of CHF per protocol. Cardiology consulted. Weights fluctuating, but may not be accurate. 231.4 >>216.8 kg 2000 ml fluid restriction recommended. Continue IV diuretics. (2) Right heart failure with reduced right ventricular function: Morbid obesity. Probable sleep apnea and obesity hypoventilation syndrome. Echo as noted above. Diuretic therapy as noted above. Multifactorial hypoxia as discussed below- will probably need nocturnal O2. Needs outpatient sleep study. (3) HTN (hypertension): Continue lisinopril and diuretics. (4) COPD (chronic obstructive pulmonary disease): Continue bronchodilators. (5) Hypoxia: O2 sats as low as 79%. Contributing factors include CHF, COPD, suspected sleep apnea & obesity hypove ntilation syndrome. Check ABG. Nocturnal pulse oximetry night of 09/05 - 09/06 showed 38 desaturation events with sats as low as 81%. Will need repeat nocturnal pulse oximetry + 2-step within 48 hours of discharge discharge to qualify for home O2. Needs outpatient sleep study. (6) Morbid obesity with BMI of 70 and over, adult: Wt 220 kg. BMI 67.8. Morbid obesity, probably with associated sleep apnea and hypoventilation syndrome --> right sided CHF. Heart healthy diet. (7) Macrocytosis: B12 = 351. Folate = 8.8. TSH = 2.25. (8) DVT prophylaxis: SQ enoxaparin adjusted for body weight. (9) Discharge planning issues: Anticipated discharge to home. Family Medicine follow-up with Dr. Pacheco. Cardiology follow-up to be arranged. Sleep study to be arranged. Admission and Anticipated Discharge Date Admission Date: September 04, 2020 Subjective Recheck for CHF and other problems. Patient seen in their room around 1450. Dyspnea improved. Occasional cough. No chest pain. Dependent edema a little better. Review of Systems: Constitutional- no fever. Cardiac- as noted above. Pulmonary- as noted above. GI- no nausea, vomiting, diarrhea, melena, hematochezia. - no urinary symptoms. Otherwise, as noted above. Physical Exam Constitutional: + morbidly obese; no acute distress Respiratory: no respiratory distress Auscultation: + wheezes (improved) Cardiovascular: Rate/Rhythm: regular rate and regular rhythm Heart Sounds: no gallop (none appreciated, but exam limited) and no murmur (none appreciated, but exam limited) Vessels: no JVD (neck veins difficult to assess) Extremities: + pedal edema and + edema (3-4+); + abnormal capillary refill and no calf tenderness Gastrointestinal (Abdomen): normal bowel sounds, soft, nontender, no hepatosplenomegaly Musculoskeletal: Extremities: no cyanosis Skin: no rashes, warm and dry Psychiatric: Orientation: alert and oriented x 3 Results & Data Results & Data ([facility]) Vital Signs (Past 12 Hours) Vital Signs Temp Pulse Pulse Pulse Resp BP BP 09/08/20 19:46 81 18 09/08/20 19:39 36.5 C 79 18 96/57 L 09/08/20 15:33 73 23 120/80 09/08/20 15:20 72 18 09/08/20 14:53 74 09/08/20 11:18 36.4 C L 85 18 144/80 H 09/08/20 11:10 115 H 20 Pulse Ox 09/08/20 19:46 91 09/08/20 19:39 91 09/08/20 15:33 94 09/08/20 15:20 93 09/08/20 14:53 09/08/20 11:18 94 09/08/20 11:10 95 Laboratory Results 09/08/20 06:00 (1) Acute CHF Heart failure type: unspecified Qualified Code(s): I50.9 - Heart failure, unspecified
[2020-09-08] MEDS: FLUTICASONE FUROATE 100MCG 14 PUFFS/INHALER INH SCH (21:13)
[2020-09-08] MEDS ORDERED: ALBUT/IPRATROP 3MG/0.5MG NEB 3 ML VIAL NEB PRN (22:15)
[2020-09-09] MEDS: ALBUTEROL HFA 8 GM INHALER INH SCH ×2 (07:03→19:15)
[2020-09-09 07:13] LABS: Base Excess ABG 13.3 mEq/L (-9-1.8); HCO3 ABG 41 mmol/L (19-24); Oxygen Saturation ABG 84.5 % (90-95); PCO2 ABG 64 mmHg (35-46); PO2 ABG 49 mmHg (80-95); pH ABG 7.43 (7.35-7.45)
[2020-09-09 07:18] LABS: Allen Test Pos (Pos)
[2020-09-09 07:50] LABS: BUN Creatinine Ratio 20.7 (10-20); Blood Urea Nitrogen 19 mg/dl (7-18); Calcium 8.9 mg/dl (8.5-10.1); Carbon Dioxide 42 mmol/L (21-32); Chloride 94 mmol/L (98-107); Creatinine Clr Calc Pharmacy 163.4 ml/min; Est GFR (African American) 106.6; Glucose 84 mg/dl (70-99); Sodium 138 mmol/L (136-145)
[2020-09-09] MEDS: FUROSEMIDE 40 MG in SYRINGE 0 ML IV SCH ×3 (08:18→21:35)
[2020-09-09] MEDS: SPIRONOLACTONE 12.5 MG TAB PO SCH (09:12)
[2020-09-09] MEDS: ASPIRIN 81 MG ECTAB PO SCH (09:12)
[2020-09-09] MEDS: lisinopril 20 MG TAB PO SCH ×2 (09:12→21:14)
[2020-09-09] MEDS: ENOXAPARIN INJ 40 MG/0.4 ML SYR SQ SCH ×2 (09:12→21:14)
[2020-09-09] MEDS: HYDROCODONE/ACETAMOPHEN 5/325MG TAB PO PRN ×2 (10:51→21:19)
[2020-09-09] MEDS ORDERED: ALBUTEROL HFA 8 GM INHALER INH SCH (11:00)
--- NOTE | 2020-09-09 11:05 | Cardiology Progress Note ---
Date of Service September 09, 2020 Assessment & Plan (1) Right heart failure with reduced right ventricular function: Patient presents with significant volume overload secondary to right heart failure. Echocardiogram while limited demonstrates generally preserved LV systolic function with dilated right ventricle. Continue aggressive diuresis with Lasix and oral spironolactone. Increase diuresis overnight with changing Lasix to 3 times daily. Will continue. Patient is agreeable to remain inpatient for continued IV diuresis. 38 desaturation events overnight will refer to our sleep medicine colleagues upon discharge. Continue strict I's and O's. Patient should be considered for high risk obesity clinic Bicarb level is elevated with ongoing diuresis. There is no doubt that he is a chronic CO2 retainer and may be his baseline? May benefit from evaluation by our nephrology colleagues. (2) Pickwickian syndrome: (3) Morbid obesity with BMI of 70 and over, adult: Admission and Anticipated Discharge Date Admission Date: September 04, 2020 Subjective Patient seen and examined, chart reviewed. 5 L negative overnight with increase Lasix frequency. States that he feels well. Again very anxious for discharge. Notes no significant improvement of lower extremity edema overnight. Denies chest pain, shortness of breath, palpitations, lightheadedness, dizziness or syncope. Telemetry reviewed: Normal sinus rhythm without arrhythmia or significant ectopy. Review of Systems Review of Systems: All systems reviewed & are unremarkable except as noted in HPI & below Physical Exam Physical Exam: Physical Exam: General: Awake, alert and oriented x 3. No acute distress. Morbidly obese with mild conversational dyspnea. HEENT: Normocephalic, atraumatic. Pupils equal, round and reactive to light and accommodation. Extraocular muscles are intact. Anicteric sclera. Moist mucous membranes. Neck: No JVD. No bruit. Cardiovascular: Distant, unable to appreciate. Pulmonary: Decreased breath sounds bilaterally without rales rhonchi or wheezing. Abdomen: Bowel sounds x 4, soft. No rebound, guarding or tenderness. No organomegaly. Extremities: No clubbing, cyanosis. Significant 2+ bilateral lower extremity pitting edema. Barely palpable pedal pulses bilaterally. Skin: Warm and dry. Results & Data ([facility]) Vital Signs (Past 12 Hours) Vital Signs Temp Pulse Pulse Pulse Resp BP Pulse Ox 09/09/20 07:33 36.9 C 82 18 118/73 91 09/09/20 07:22 78 09/09/20 07:05 79 18 80 L 09/09/20 04:13 36.5 C 79 20 102/63 90 09/08/20 23:11 37 C 83 16 91/5 L 96
--- NOTE | 2020-09-09 15:07 | Hospitalist Progress Note ---
Date of Service September 09, 2020 Assessment & Plan (1) Acute CHF: Volume overload Acute congestive heart failure with preserved EF CXR:The cardiac silhouette is mildly enlarged. There is mild diffuse interstitial thickening. No pleural effusions. No pneumothorax. Venous Doppler: There is no sonographic evidence of deep venous thrombosis identified in the right or left lower extremity. ECHO: Moderate concentric LVH, EF 55 to 60%, right ventricle and right atrium severely dilated. Continue IV diuretics Monitor daily weight, electrolytes, I's and O's Continue low-salt diet Appreciate cardiology input Needs follow-up with cardiology upon discharge (2) Right heart failure with reduced right ventricular function: Hypoxia Probable sleep apnea and obesity hypoventilation syndrome. Morbid obesity Needs outpatient sleep study Nocturnal oximetry--qualifies for oxygen at bedtime Will need 2 step prior to discharge (3) HTN (hypertension): Continue lisinopril Also on diuretics. (4) COPD (chronic obstructive pulmonary disease): Continue bronchodilators Metabolic alkalosis Hypercarbia Likely secondary to chronic conditions Diuretics likely contributing as well Monitor (5) Hypoxia: As above (6) Morbid obesity with BMI of 70 and over, adult: BMI 67.8. Morbid obesity Heart healthy diet (7) Macrocytosis: B12, folate, TSH within normal limits (8) DVT prophylaxis: SQ Lovenox (9) Discharge planning issues: Family Medicine follow-up with Dr. Pacheco. Cardiology follow-up Sleep study as outpatient Admission and Anticipated Discharge Date Admission Date: September 04, 2020 Subjective Patient is seen and examined at bedside States feeling better today On 3 L of supplemental oxygen Still has significant lower extremity edema Denies chest pain, dyspnea, dizziness, nausea, abdominal pain Offers no other complaints Review of Systems Review of Systems: All systems reviewed & are unremarkable except as noted in HPI & below Physical Exam Physical Exam: Physical Exam: Vitals signs as noted above General Appearance:Morbidly Obese, no apparent distress Head: normocephalic, Atraumatic Eyes: normal inspection, EOMI Neck: supple, Trachea midline Respiratory/Chest: Normal breath sounds, Basal crackles Cardiovascular: S1, S2, No murmur Abdomen/GI:Soft, Non tender, Bowel sounds present Extremities/Musculoskelatal:normal inspection, B/L LE 3+ edema Neurologic/Psych:AAOX3, grossly no focal neurological deficits Skin: normal color, warm Results & Data Results & Data ([place]) Vital Signs (Past 12 Hours) Vital Signs Temp Pulse Pulse Pulse Resp BP Pulse Ox 09/09/20 11:44 36.8 C 68 18 126/79 91 09/09/20 11:10 84 16 91 09/09/20 07:33 36.9 C 82 18 118/73 91 09/09/20 07:22 78 09/09/20 07:05 79 18 80 L 09/09/20 04:13 36.5 C 79 20 102/63 90 Laboratory Results [facility] 09/09/20 06:44 Sodium 138 Potassium TNP Chloride 94 L Carbon Dioxide 42 H* BUN 19 H Creatinine 0.92 Glucose 84 Calcium 8.9 (1) Acute CHF Heart failure type: unspecified Qualified Code(s): I50.9 - Heart failure, unspecified
[2020-09-09] MEDS: FLUTICASONE FUROATE 100MCG 14 PUFFS/INHALER INH SCH (21:13)
[2020-09-10] MEDS: ALBUTEROL HFA 8 GM INHALER INH SCH ×3 (01:08→13:14)
[2020-09-10 07:39] VITALS: TEMP 97.9
[2020-09-10 08:07] LABS: Calcium 8.7 mg/dl (8.5-10.1); Est GFR (Non-African American) 93.2; Magnesium 2.2 mg/dl (1.8-2.4); Potassium 3.9 mmol/L (3.5-5.1)
[2020-09-10] MEDS: SPIRONOLACTONE 12.5 MG TAB PO SCH (08:31)
[2020-09-10] MEDS: ENOXAPARIN INJ 40 MG/0.4 ML SYR SQ SCH (08:31)
[2020-09-10] MEDS: ASPIRIN 81 MG ECTAB PO SCH (08:31)
[2020-09-10] MEDS: lisinopril 20 MG TAB PO SCH (08:31)
[2020-09-10] MEDS: FUROSEMIDE 40 MG in SYRINGE 0 ML IV SCH ×2 (08:56→13:14)
--- NOTE | 2020-09-10 12:08 | Cardiology Progress Note ---
Date of Service September 10, 2020 Assessment & Plan (1) Right heart failure with reduced right ventricular function: Patient presents with significant volume overload secondary to right heart failure. Echocardiogram while limited demonstrates generally preserved LV systolic function with dilated right ventricle. Patient's output is now declining and his BUN is rising. Lower extremity edema is improving so I believe the most prudent course of action at this point would be to DC IV diuretics and discharged home on oral diuretics. Recommend torsemide 20 mg p.o. daily every morning with a PRN p.m. dose as needed for volume overload. He will also be continued on his spironolactone 12.5 mg p.o. daily. Aspirin and lisinopril should also be continued. Should have outpatient BMP in 1 week to follow renal function and electrolytes. Follow-up with PCP in 1 week. My office will call to schedule follow-up in 1 to 2 weeks. Dietary restrictions reviewed. 38 desaturation events overnight will refer to our sleep medicine colleagues upon discharge. (2) Pickwickian syndrome: (3) Morbid obesity with BMI of 70 and over, adult: Admission and Anticipated Discharge Date Admission Date: September 04, 2020 Subjective Patient seen and examined, chart reviewed. States that he feels well and notes his lower extremity edema is improving. As always he is anxious for discharge and denies experiencing any chest pain, palpitations, lightheadedness, or dizziness. Telemetry reviewed: Normal sinus rhythm without arrhythmia or significant ectopy. Review of Systems Review of Systems: All systems reviewed & are unremarkable except as noted in HPI & below Physical Exam Physical Exam: Physical Exam: General: Awake, alert and oriented x 3. No acute distress. Morbidly obese with mild conversational dyspnea. HEENT: Normocephalic, atraumatic. Pupils equal, round and reactive to light and accommodation. Extraocular muscles are intact. Anicteric sclera. Moist mucous membranes. Neck: No JVD. No bruit. Cardiovascular: Distant, unable to appreciate. Pulmonary: Decreased breath sounds bilaterally without rales rhonchi or wheezing. Abdomen: Bowel sounds x 4, soft. No rebound, guarding or tenderness. No organomegaly. Extremities: No clubbing, cyanosis. Significant 2+ bilateral lower extremity pitting edema. Barely palpable pedal pulses bilaterally. Skin: Warm and dry. Results & Data ([facility]) Vital Signs (Past 12 Hours) Vital Signs Temp Pulse Pulse Pulse Resp BP Pulse Ox 09/10/20 08:50 77 09/10/20 07:39 36.6 C 76 16 109/66 90 09/10/20 07:24 69 16 91 09/10/20 03:00 36.7 C 75 20 104/55 L 93 09/10/20 01:08 70 18 95 09/10/20 00:09 82
--- NOTE | 2020-09-10 15:04 | Hospitalist Progress Note ---
Date of Service September 10, 2020 Assessment & Plan (1) Acute CHF: Volume overload Acute congestive heart failure with preserved EF CXR:The cardiac silhouette is mildly enlarged. There is mild diffuse interstitial thickening. No pleural effusions. No pneumothorax. Venous Doppler: There is no sonographic evidence of deep venous thrombosis identified in the right or left lower extremity. ECHO: Moderate concentric LVH, EF 55 to 60%, right ventricle and right atrium severely dilated. Received IV lasix Monitor daily weight, electrolytes, I's and O's Continue low-salt diet Appreciate cardiology input Plan to continue spironolactone 12.5 mg p.o. daily Needs blood test BMP in 1 week upon discharge Plan to start on torsemide 20 mg daily and as needed as per cardiology Needs follow-up with cardiology in 1 to 2 weeks upon discharge 2 step: Needs 2 L of oxygen via nasal cannula at rest and 4 L with activity (2) Right heart failure with reduced right ventricular function: Hypoxia Probable sleep apnea and obesity hypoventilation syndrome. Morbid obesity Needs outpatient sleep study Nocturnal oximetry--qualifies for oxygen at bedtime 2 step: Qualifies for oxygen as above (3) HTN (hypertension): Continue lisinopril Also on diuretics. (4) COPD (chronic obstructive pulmonary disease): Continue bronchodilators Metabolic alkalosis Hypercarbia Likely secondary to chronic conditions Diuretics likely contributing as well Monitor (5) Hypoxia: As above (6) Morbid obesity with BMI of 70 and over, adult: BMI 67.8. Morbid obesity Heart healthy diet (7) Macrocytosis: B12, folate, TSH within normal limits (8) DVT prophylaxis: SQ Lovenox (9) Discharge planning issues: Family Medicine follow-up with Dr. Pacheco. Cardiology follow-up Sleep study as outpatient Admission and Anticipated Discharge Date Admission Date: September 04, 2020 Subjective Patient is seen and examined at bedside No new complaints Eager to get discharged Discussed with Cardiology today Had 2 step earlier today lower extremity edema improving Denies chest pain, dyspnea, dizziness, nausea, abdominal pain Offers no other complaints Review of Systems Review of Systems: All systems reviewed & are unremarkable except as noted in HPI & below Physical Exam Physical Exam: Physical Exam: Vitals signs as noted above General Appearance:Morbidly Obese, no apparent distress Head: normocephalic, Atraumatic Eyes: normal inspection, EOMI Neck: supple, Trachea midline Respiratory/Chest: Normal breath sounds, CTA Cardiovascular: S1, S2, No murmur Abdomen/GI:Soft, Non tender, Bowel sounds present Extremities/Musculoskelatal:normal inspection, B/L LE 3+ edema Neurologic/Psych:AAOX3, grossly no focal neurological deficits Skin: normal color, warm Results & Data Results & Data ([facility]) Vital Signs (Past 12 Hours) Vital Signs Temp Pulse Pulse Pulse Pulse Pulse Pulse 09/10/20 13:00 73 93 H 94 H 115 H 09/10/20 08:50 77 09/10/20 07:39 36.6 C 09/10/20 07:24 69 09/10/20 03:00 36.7 C Pulse Pulse Pulse Resp Resp Resp Resp 09/10/20 13:00 94 H 71 20 24 25 H 09/10/20 08:50 09/10/20 07:39 76 16 09/10/20 07:24 16 09/10/20 03:00 75 20 Resp Resp Resp BP Pulse Ox Pulse Ox Pulse Ox 09/10/20 13:00 25 H 22 20 93 87 L 09/10/20 08:50 09/10/20 07:39 109/66 90 09/10/20 07:24 91 09/10/20 03:00 104/55 L 93 Pulse Ox Pulse Ox Pulse Ox Pulse Ox 09/10/20 13:00 90 84 L 90 81 L 09/10/20 08:50 09/10/20 07:39 09/10/20 07:24 09/10/20 03:00 Laboratory Results BMP 09/10/20 07:06 Sodium 137 Potassium 3.9 Chloride 93 L Carbon Dioxide 42 H* BUN 22 H Creatinine 0.91 Glucose 88 Calcium 8.7 (1) Acute CHF Heart failure type: unspecified Qualified Code(s): I50.9 - Heart failure, unspecified
--- NOTE | 2020-09-10 15:24 | Discharge Summary ---
Date of Service September 10, 2020 Admission HPI Per Admitting Provider This is a 55-year-old male who has significant past medical history of morbid obesity, COPD, HTN, history of TIA, vitamin D deficiency, osteoarthritis, history of tobacco abuse who presents to ED secondary to LEUNG x2 weeks and weight gain of 60 pounds. He was seen and evaluated by PCP yesterday for above complaints who referred to ED although patient refused. He states over the past 2 weeks he has notably become more short of breath. He does have history of COPD secondary to significant tobacco use, but currently is getting short of breath with even the littlest activities. He also occasionally gets short of breath at rest. He has 4 pillow orthopnea. He denies PND. He does not wear CPAP or BiPAP at at bedtime. He does not wear oxygen on a regular basis although, "my girlfriend has oxygen so I occasionally use hers." He admits to approximately 60 pound weight gain. 1 year ago he was 435 pounds. Yesterday he was 507 pounds. He admits to increased abdominal bloating and lower extremity edema. He feels legs are more swollen than usual. He denies prior history of DVT. He denies fever, chills, sweats, lightheadedness, dizziness, syncope, chest pain, hemoptysis, nausea, vomiting, abdominal pain. He does have a chronic cough with occasional production. He denies any purulent production or any increased in sputum amount. He states he recently got over a more serious cough. He was tested for Covid 3 times in the past 10 days all were negative. He denies any prior history of CAD or CHF. In ED patient remained blood pressure significantly elevated at 188/99. Improved to 168/85 during my examination post IV Lasix. Hypoxic on arrival at 85% on room air. Required 3 L of O2 supplementation via OxyMax. CBC generally unremarkable. CMP revealed elevated CO2 39, glucose 100, BUN 16, creatinine 1.00, proBNP 2783, troponin 0.037. Chest x-ray revealed mild congestive change. He received 40 mg IV Lasix while in ED. He has not yet urinated. Admission Exam Per Admitting Provider Physical Exam Physical Exam: Constitutional: Morbidly obese, male, sitting up in bed, increased respiratory rate, vitals as above, sitting up in bed, pleasant, conversing easily Head: Normocephalic, Atraumatic Eyes: PERRL, conjunctivae normal, anicteric sclerae ENMT: external ear and nose normal, oropharynx normal Neck: trachea midline, no thyromegaly normal visual inspection Respiratory: Increased respiratory effort, CTA B with diffuse expiratory wheezing throughout, no rales or rhonchi, no accessory muscle use Cardiovascular: Distant heart sounds secondary to body habitus, RRR, no murmur, bilateral lower extremity venous stasis changes, no erythema, no warmth, no pain to palpation, negative Homans' sign, bilateral +3 pitting edema Vessels: no JVD but difficult to assess given body habitus, no carotid bruit Chest: normal inspection of chest Abdomen:protuberant abd, firm, normal bowel sounds, nontender, large panus Musculoskeletal: no cyanosis or clubbing, extremities motor strength 5/5 Skin: no rashes, warm and dry normal turgor Neurologic: PERRL, EOMI, accommodation nl, no face palsy, no dysarthria CN's II-XI intact bilaterally and moves all extremities Psychiatric: A+Ox3, euthymic affect : deferred Principal Diagnosis Acute congestive heart failure with preserved EF Volume overload Discharge Data Allergies Allergy/AdvReac Type Severity Reaction Status Date / Time No Known Allergies Allergy Verified 09/04/20 16:40 Consultations 09/04/20 16:26 ED Decision to Admit Stat 09/04/20 16:45 Consult Cardiology Routine Procedures Performed CXR:The cardiac silhouette is mildly enlarged. There is mild diffuse interstitial thickening. No pleural effusions. No pneumothorax. Venous Doppler: There is no sonographic evidence of deep venous thrombosis identified in the right or left lower extremity. ECHO: Moderate concentric LVH, EF 55 to 60%, right ventricle and right atrium severely dilated. Ordered Studies 09/04/20 17:07 US venous doppler LE BI Stat Hospital Course (1) Acute CHF: Volume overload Acute congestive heart failure with preserved EF CXR:The cardiac silhouette is mildly enlarged. There is mild diffuse interstitial thickening. No pleural effusions. No pneumothorax. Venous Doppler: There is no sonographic evidence of deep venous thrombosis identified in the right or left lower extremity. ECHO: Moderate concentric LVH, EF 55 to 60%, right ventricle and right atrium severely dilated. Received IV lasix Monitor daily weight, electrolytes, I's and O's Continue low-salt diet Appreciate cardiology input Plan to continue spironolactone 12.5 mg p.o. daily Needs blood test BMP in 1 week upon discharge Plan to start on torsemide 20 mg daily and as needed as per cardiology Needs follow-up with cardiology in 1 to 2 weeks upon discharge 2 step: Needs 2 L of oxygen via nasal cannula at rest and 4 L with activity (2) Right heart failure with reduced right ventricular function: Hypoxia Probable sleep apnea and obesity hypoventilation syndrome. Morbid obesity Needs outpatient sleep study Nocturnal oximetry--qualifies for oxygen at bedtime 2 step: Qualifies for oxygen as above (3) HTN (hypertension): Continue lisinopril Also on diuretics. (4) COPD (chronic obstructive pulmonary disease): Continue bronchodilators Metabolic alkalosis Hypercarbia Likely secondary to chronic conditions Diuretics likely contributing as well Monitor (5) Hypoxia: As above (6) Morbid obesity with BMI of 70 and over, adult: BMI 67.8. Morbid obesity Heart healthy diet (7) Macrocytosis: B12, folate, TSH within normal limits (8) DVT prophylaxis: SQ Lovenox (9) Discharge planning issues: Family Medicine follow-up with Dr. Pacheco. Cardiology follow-up Sleep study as outpatient Total Time Total Time Spent Total Time Spent (In Minutes): 40 minutes Total Time Includes: Examination of the Patient, Discharge Planning, Medication Reconciliation, Communication With Other Providers and Other Discharge Plan Discharge Items Patient Disposition: Home - Self-Care Reason For Visit: ACUTE/CHRONIC HFpEF Discharge Diagnosis: Acute congestive heart failure with preserved EF Acute respiratory failure with hypoxia Activity: Per Instructions section Exercise/Sports: Gradually increase as tolerated Non-emergency contact: Primary Care Provider and Zoo Director Call non-emergency contact if: you have any medication questions, your symptoms worsen, your pain is not controlled, your pain is worsening, your pain is unusual for you, your pain is concerning for you and you have a fever Follow-up/Referrals: Juarez Pacheco MD [Primary Care Provider] - (Date & Time 09/17/2020 3:00 PM Provider Juarez Pacheco MD [facility] ) Diet: Heart Healthy and Low Sodium (2gm) Fluids: 2000ml (8 cups) Ambulatory Orders: Basic Metabolic Panel (Routine) Timeframe: 1 Week Location: Determined by Patient Ordered By: Wilver Laguna Attending Provider Instructions: Follow-up with your primary care physician Dr. Pacheco on 09/17/2020 3:00 PM Follow up with your Zoo Director in 1-2 weeks as recommended Get Blood Test (Basic Metabolic Panel) in 1 week and follow up with your physician with results Use 2 Liters of oxygen via nasal cannula at rest and 4 Liters with activity. Get Sleep Study as outpatient to rule out Sleep Apnea as recommended. Seek immediate medical attention if your symptoms reoccur or worsen Call your Primary Care doctor if any of the following symptoms or problems start or get worse: * Shortness of breath or difficulty breathing * Wake up at night short of breath * Chest pain * Cough * Swelling of your hands, feet, or legs * More fatigued or tired with your normal activity * Palpitations - sudden fast heart beats WEIGHT * Weigh yourself every morning after using the bathroom. * Use the same scale. * Wear the same amount of clothing. * Write your weight down on a chart. * Call your Primary Care doctor if you gain more than 2-3 pounds in 1-2 days. MEDICATIONS * Use this discharge instruction sheet for medication instructions. * Take your medications at the time your doctor ordered. * Do not skip a dose of your medicines. * If you miss a dose of medicine, take it as soon as possible, but DO NOT DOUBLE A DOSE. * Read your medicine information when you get home. * Know all of the side effects of your medicine. If in doubt, ask your pharmacist * Call your Primary Care doctor's office if you have any side effects. * Be sure all of your doctors know what medicine and herbs you take (including cold, flu, and herbal medicine). Take the following with you to your follow-up doctor appointments: * Weight Chart * Medication List * List of questions Do not drink excessive alcohol, beer or wine. Pending Studies at Discharge: No Stand-Alone Forms: [employer] home renovations, Smoking Cessation Medications and DC Order Prescriptions: New (DME) Oxygen Home Liters Per Minute See Rx Instructions .ROUTE .COMPLEX Qty: 1 RF: 0 spironolactone 25 mg Tablet 12.5 mg PO DAILY Qty: 30 RF: 1 torsemide 20 mg tablet 20 mg PO UD Qty: 60 RF: 0 Continued hydrocodone-acetaminophen 5-325 mg Tablet 1 tab PO Q6H PRN (Reason: Pain) RF: 0 aspirin 81 mg Tablet,Delayed Release (Dr/Ec) 81 mg PO DAILY RF: 0 albuterol sulfate 90 mcg/actuation Hfa Aerosol Inhaler 2 puff INHALATION QID RF: 0 lisinopril 40 mg tablet 20 mg PO BID RF: 0 fluticasone propionate 110 mcg/actuation Hfa Aerosol Inhaler 1 puff INHALATION Q12H RF: 0 Discontinued hydrochlorothiazide 25 mg Tablet 25 mg PO DAILY RF: 0 Discharge Orders: Discharge Order (Routine); Ordered 09/10/20 Ordered By: Wilver Medeiros/Other Patient Handouts: Prediabetes, Diabetes: Meal Planning, A1C Admission Data Admit Date/Time: 09/04/20 16:45 Attending Provider: Wilver William Admit Provider: Daniel Jernigan Primary Care Provider: Juarez Pacheco Other Providers: Daniel Jernigan ; Mickey Aguillon Other Interventions: Discharge Summary Assessment (RN) Last Done: 09/10/20 15:30
[2020-09-10 15:32] VITALS: BP 152/78; PULSE 69; O2SAT 90
== END 2020-09-10 16:03 | disposition home or self-care (01) | DRG 291 ==
LOC: ED 14:40 → 2S 16:45 → SUATTDRO 16:45 → 2S 17:21 → 2W 09-09 13:56 → 2N 09-10 11:10

== ENCOUNTER 2024-02-26 17:40 | Inpatient (IN) ==
--- OUTSIDE RECORDS SUMMARY | 2024-02-26 17:45 | External Medical Summary | Summary of Care ---
Author Name Unknown Organization [facility] Address [address] [place] [address] Phone [phone] Care Team Providers Care Deep Fryer Assembler Name Role Phone Consuelo Pacheco MD Primary Care Provider [phone] Reason for Referral * Medication Prior Authorization - Closed Specialty Diagnoses / Procedures Referred By Contac t Referred To Contact Diagnoses Lumbar and sacral osteoarthritis Primary localized osteoarthrosis, lower leg, left Cosnuelo Pacheco MD [address] [place] [address] Referral ID Status Reason Start Date Expiration Date Visits Re quested Visits Authorized [id number] Closed 999 999 Reason for Visit * Reason Onset Date Comments Medication Refill 02/02/2024 Encounter Details Date Type Department Care Team (Late st Contact Info) Description 02/02/2024 Refill [facility] [address] [place] [address] Consuelo Pacheco MD [address] [place] [address] Lumbar and sacral osteoarthritis; Primary localized osteoarthrosis, lower leg, left Allergies No known active allergiesdocumented as of this encounter (statuses as of 02/03/2024) Medications Medication Sig Dispensed Refills Start Date End Date Status ASPIRIN 81 MG PO CHEWIndications:H TN, goal below 130/80,Shortness of breath,Chest pain,Palpitations take one tablet daily 34 Tab 11 09/09/2010 Active [facility] D3 25 MCG (1000 UT) Oral Capsule (Cholecalciferol) Indications:Vitam in D deficiency TAKE BY MOUTH 1 CAPSULE IN THE MORNING. TO START AFTER 12 WEEKS OF HIGH DOSE.. 90 Capsule 3 12/08/2022 Active Lisinopril 40 MG Oral TabletIndications :HTN, goal below 130/80 Take 0.5 Tablets by mouth in the morning and 0.5 Tablets before bedtime. 90 Tablet 2 01/04/2023 Active Fluticasone Propionate HFA 110 MCG/ACT Inhalation Aerosol (Flovent HFA)Indications:C OPD, severity to be determined (HCC) Inhale 2 Puffs by mouth in the morning and 2 Puffs before bedtime. 36 g 2 01/04/2023 Active Torsemide 20 MG Oral Tablet (Demadex)Indicati ons:Chronic diastolic heart failure (HCC) TAKE 1 TABLET BY MOUTH EVERY MORNING TAKE 1 TABLET BY MOUTH EVERY EVENING 180 Tablet 0 11/04/2023 Active Spironolactone 25 MG Oral Tablet (Aldactone)Indica tions:Chronic diastolic heart failure (HCC) Take 0.5 Tablets by mouth in the morning. 45 Tablet 0 01/05/2024 Active Albuterol Sulfate HFA 108 (90 Base) MCG/ACT Inhalation Aerosol SolutionIndicatio ns:COPD, severity to be determined (HCC) INHALE 2 PUFFS BY MOUTH 4 TIMES A DAY NEEDED FOR WHEEZING 18 g 0 01/20/2024 Active HYDROcodone-Aceta minophen 5-325 MG Oral TabletIndications :Lumbar and sacral osteoarthritis,Pr imary localized osteoarthrosis, lower leg, left Take 1 Tablet by mouth every 8 hours as needed for Other (pain). 90 Tablet 0 02/03/2024 Active HYDROcodone-Aceta minophen 5-325 MG Oral TabletIndications :Lumbar and sacral osteoarthritis,Pr imary localized osteoarthrosis, lower leg, left Take 1 Tablet by mouth every 8 hours as needed for Other (pain). 90 Tablet 0 01/05/2024 02/02/2024 Discontinued (Refill) Hospital, Clinic, or Other Facility Administered Medication Ordered Dose Route Frequency Start Date End Date Status albuterol sulfate (PROVENTIL) (2.5 MG/3ML) 0.083% inhalation solution 2.5 mgIndications:COPD, severity to be determined (HCC) 2.5 mg NEBULIZER Q4H PRN 10/13/2018 Active documented as of this encounter (statuses as of 02/03/2024) Active Problems Problem Noted Date Diagnosed Date Prediabetes 01/18/2022 Overview: Per Prediabetes protocol Cor pulmonale, chronic 10/01/2020 Heart failure, diastolic 10/01/2020 COPD, severity to be determined 10/10/2018 Encounter for long-term (current) use of medicat ions 10/26/2017 Body mass index (BMI) of 60.0 to 69.9 in adult 1 Overview: Per Obesity protocol #1 - ICD-10 update of inactive term HTN, goal below 140/90 01/06/2015 MEDICATION USE AGREEMENT 08/09/2012 Overview: Signed 08/09/12 Updated 01/05/17 Primary localized osteoarthrosis, lower leg 05/08 Lumbar and sacral osteoarthritis 05/30/2012 Vitamin D deficiency 08/29/2011 Chest pain 09/09/2010 Primary localized osteoarthrosis, lower leg 07/09 Tobacco use disorder 2010 documented as of this encounter (statuses as of 02/03/2024) Resolved Problems Problem Noted Date Diagnosed Date Resolved Date Palpitations 09/09/2010 10/10/2018 Shortness of breath 09/09/2010 10/10/20 18 HTN, goal below 130/80 07/30/201001/06 Obesity, morbid (more than 1 00 lbs over ideal weight or BMI > 40) 2010 08/11/2017 Overview: Per Obesity protocol #1 - ICD-10 update of inactive term documented as of this encounter (statuses as of 02/03/2024) Immunizations Name Administration Dates Next Due Pneumococcal Polysaccharide PPV23 (Pneumovax) 03/15/2012 Seasonal Influenza, PF, 6 M & above, IM , (FluLaval or Fluzone) 10/01/2020,10/01/2019,08/09/2018,10/0810/26/2018 Seasonal Influenza, Quadriva lent, No Preserve, IM 10/25/2016,10/24/2015 Seasonal Influenza, Split, I IV3, With Preserve, Inj 08/06/2013,08/31/2012,08/09/2011 TDAP (age 10 and older)(Boostrix) 10/24/2015 documented as of this encounter Social History Tobacco Use Types Packs/Day Years Used Date Smoking Tobacco: Former Cigarettes 1 40 Smokeless Tobacco: Current Snuff Alcohol Use Standard Drinks/Week Comments Yes 0 (1 standard drink = 0.6 oz pur e alcohol) rare PHQ-2 Answer Date Recorded PHQ Adult Total Score 0 01/09/2021 Hunger Vital Sign Answer Date Recorded Within the past 12 months, y ou worried that your food would run out before you got the money to buy more. Never true 01/10/20 21 Within the past 12 months, t he food you bought just didn't last and you didn't have money to get more. Never true 01/09/2021 Sex and Gender Information Value Date Recorded Sex Assigned at Male 02/08/2019 2:56 PM EDT Gender Identity Male 02/08/2019 2:56 PM EDT Sexual Orientation Straight 02/08/2019 2: 56 PM EDT Job Start Date Occupation Industry Not on file Not on file Not on file documented as of this encounter Miscellaneous Notes * Telephone Encounter - Consuelo Pacheco MD - 02/03/2024 5:17 PM EDTSigned Prescriptions: Disp Refills HYDROcodone-Acetaminophen 5-325 MG Oral Ta*90 Tab*0 Sig: Take 1 Tablet by mouth every 8 hours as needed for Other (pain). Authorizing Provider: CONSUELO PACHECO * Telephone Encounter - Shira Barker, [facility] - 02/03/2024 7:34 AM EDT Pending Prescriptions: Disp Refills HYDROcodone-Acetaminophen 5-325 MG Oral Ta*90 Tab*0 Sig: Take 1 Tablet by mouth every 8 hours as needed for Other (pain). * Telephone Encounter - Shira Barker RP - 02/03/2024 7:33 AM EDT I have reviewed the patients controlled substance dispensing history in the Prescription Drug Monitoring Program in compliance with the [facility] regulations before prescribing a controlled substance. PDMP checked on 02/03/2024. Pending Prescriptions: Disp Refills HYDROcodone-Acetaminophen 5-325 MG Oral T*90 Tab*0 Sig: Take 1 Tablet by mouth every 8 hours as needed for Other (pain). Last Visit: 07/09/2022 (in office), 06/16/2020 (telemedicine) Next Visit: 02/08/2024 Date medication was last filled: Date medication is due for refill: 02/02 Pharmacy: [id number] [address] [facility] Is this request for a controlled substance? Yes and Urine Drug Screen Not completed Toxicology results: Results for orders placed or performed in visit on 01/27/18 TOX SCREEN, URINE, W/O CONFIRMATION Result Value Amphetamine NEGATIVE Barbiturates NEGATIVE Benzodiazepines NEGATIVE Cannabinoids POSITIVE (A) Cocaine Metabolite NEGATIVE Morphine / Codeine NEGATIVE METHADONE METABOLITE NEGATIVE OXYCODONE NEGATIVE NOTE: THE ABOVE SCREENING RESULTS ARE PRESUMPTIVE AND CAN ONLY BE USED FOR MEDICAL PURPOSES. CONFIRMATORY TESTING IS AVAILABLE UPON REQUEST. Cutoff Concentration Please approve if appropriate. Thanks, Shira Barker PharmD Clinical Pharmacist [facility] ([facility]) (formerly Telepharmacy) [phone] 02/03/2024,7:33 AM * Telephone Encounter - Mayelin Dawkins PHARM Tech - 02/02/2024 10:15 AM EDT Did you pend patient's preferred pharmacy and medication before forwarding?yes Pharmacy: [id number] [address] [facility] Pending Prescriptions: Disp Refills HYDROcodone-Acetaminophen 5-325 MG Oral T*90 Tab*0 Sig: Take 1 Tablet by mouth every 8 hours as needed for Other (pain). Last Visit: 07/09/2022 (in office), 06/16/2020 (telemedicine) Next Visit: 02/08/2024 If no future appointments scheduled, and last appointment is greater than a year ago, please schedule patient for a follow-up appointment Last date the medication was ordered: 01/05/24 Is this request for a controlled substance?Yes, What was the last refill date 01/05/24 w/ quantity 90 Tablet and dosage 5-325 MG and Urine Drug Screen was completed Urine Drug Screen: Results for orders placed or performed in visit on 01/27/18 TOX SCREEN, URINE, W/O CONFIRMATION Result Value Amphetamine NEGATIVE Barbiturates NEGATIVE Benzodiazepines NEGATIVE Cannabinoids POSITIVE (A) Cocaine Metabolite NEGATIVE Morphine / Codeine NEGATIVE METHADONE METABOLITE NEGATIVE OXYCODONE NEGATIVE NOTE: THE ABOVE SCREENING RESULTS ARE PRESUMPTIVE AND CAN ONLY BE USED FOR MEDICAL PURPOSES. CONFIRMATORY TESTING IS AVAILABLE UPON REQUEST. Cutoff Concentration Patient Phone Numbers Labs: Lab Results Component Value Date/Time CREAT 1.2 07/09/2022 11:52 AM CREAT 1.7 (H) 09/25/2020 11:31 AM POTASSIUM 4.8 07/09/2022 11:52 AM POTASSIUM 5.6 (H) 09/25/2020 11:31 AM TSH 3.10 08/04/2010 01:14 PM LDLCALC 102 01/06/2022 08:17 AM LDLCALC 81 09/25/2020 11:31 AM LDLDIRECT NOT APPLICABLE 09/25/2020 11:31 AM ALT 18 07/09/2022 11:52 AM ALT 21 09/25/2020 11:31 AM HGBA1C 5.9 (H) 07/09/2022 11:52 AM documented in this encounter Plan of Treatment Upcoming Encounters Date Type Department Care Team (Late st Contact Info) Description 02/08/2024 11:40 AM EDT Office Visit [facility] [address] [place] [facility] [place] [address] Consuelo Pacheco MD [address] [facility] [id number] Health Maintenance Due Date Last Done Comments Albumin/Creatinine Ratio 1981 Alpha-1 Antitrypsin 1981 O2 ASSESSMENT COMPLETED IN PAST YEAR FOR COPD 1981 Pneumococcal Vaccine: Pediatrics (0 to 5 Years) and At-Risk Patients (6 to 64 Years) (2 of 2 - PCV) 03/15/2013 03/15/2012 Zoster Vaccines (1 of 2) 2013 COLONOSCOPY-EVERY 5 YRS AGES 18-100 10/01/2018 10/01/2013 *CXR OR CT FOR COPD EVER 10/23/2018 Depression Screening 01/09/2022 01/09/2021 COVID-19 Vaccine (1 - season) 2023 Influenza Vaccine (FLU shot) (#1) 2023 10/01/2020, 10/01/2019, 08/09/2018, Additional history exists GFR 07/09/2023 07/09/2022, 12/2021, 09/25/2020, Additional history exists HbA1c 07/09/2023 07/09/2022, 01/06/2022 DTaP,Tdap,and Td Vaccines (2 - Td or Tdap) 10/24/2025 10/24/2015 Lipid Panel 01/06/2027 01/06/2022, 09/07, 08/16/2019, Additional history exists GARDASIL-HPV IMMUNIZATION SERIES Aged Out No longer eligible based on patient's age to complete this topic Hepatitis B Aged Out No longer eligi ble based on patient's age to complete this topic MENINGOCOCCAL (MENACTRA/MENVEO) Aged Out No longer eligible based on patient's age to complete this topic documented as of this encounter Medical Devices Not on filedocumented as of this encounter Visit Diagnoses Diagnosis Lumbar and sacral osteoarthritis Lumbosacral spondylosis without myelopathy Primary localized osteoarthrosis, lower leg, left documented in this encounter Care Teams Deep Fryer Assembler Relationship Specialty Start Date End Date Consuelo Pacheco MD [address] [place] [address] PCP - General 09/09/10 documented as of this encounter
--- OUTSIDE RECORDS SUMMARY | 2024-02-26 17:45 | External Medical Summary | Summary of Care ---
Author Name Unknown Organization [facility] Address [address] [place] [address] Phone [phone] Care Team Providers Care Signs Sales Representative Name Role Phone Juarez Pacheco MD Primary Care Provider [phone] Reason for Visit * Reason Onset Date Comments Order Request 01/30/2024 Encounter Details Date Type Department Care Team (Late st Contact Info) Description 01/30/2024 Telephone [facility] [address] [place] [address] Juarez Pacheco MD [address] [place] [address] Order Request Allergies No known active allergiesdocumented as of this encounter (statuses as of 02/09/2024) Medications Medication Sig Dispensed Refills Start Date [...] as of this encounter (statuses as of 02/09/2024) Active Problems Problem Noted Date Diagnosed Date [...] as of this encounter (statuses as of 02/09/2024) Resolved Problems Problem Noted Date Diagnosed Date Resolved Date Palpitations 09/09/2010 10/10/2018 Shortness of breath 09/09/2010 10/10/20 18 HTN, goal below 130/80 07/30/201001/06 Obesity, morbid (more than 1 00 lbs over ideal weight or BMI > 40) 2010 08/11/2017 Overview: Per Obesity protocol #1 - ICD-10 update of inactive term documented as of this encounter (statuses as of 02/09/2024) Immunizations Name Administration Dates Next Due Pneumococcal [...] encounter Miscellaneous Notes * Telephone Encounter - Jesenia Madrid OSA - 02/09/2024 12:43 PM EDT Pt returning phone call. Pt wants to stay with PCP for inj. PT R/S for 40 min appt on 03/06 with PCP * Telephone Encounter - Alciia Moser OSA - 02/09/2024 10:00 AM EDT LMOM for patient to return call. When patient calls, ask patient if patient is planning on having injections on upcoming appointment or if he wants to go to Sports Med (per message below). If patient wants Dr. Pacheco to do the injections then the current appt (on February 16) needs rescheduled to a 40 minute appointment. If patient wants to see Sports Med then schedule patient with Sports Med. Thank you. * Telephone Encounter - Alicia Moser OSA - 02/03/2024 9:20 AM EDT LMOM. 02/03/2024 * Telephone Encounter - Juarez Pacheco MD - 02/02/2024 12:24 PM EDT Ok to schedule Pt for OV for injection . Not urgent. He can be given option to see sports med at [facility]. They would inject as well. * Telephone Encounter - Anabella Mansfield LPN - 02/02/2024 10:20 AM EDT Patient calling back stated that it is his right knee that he is interested in getting a cortisone injection in. He stated that Dr. Pacheco has injected his knee previously. * Telephone Encounter - Juanita Carmona LPN - 02/01/2024 2:45 PM EDT Attempted to call patient, no answer lm that I was calling to follow up in regards to the cortisoneinjection requested and asked for a return call. If patient calls back please inform of the information from Dr. Fragoso * Telephone Encounter - Juarez Pacheco MD - 01/31/2024 6:13 PM EDT Pt is asking for Cortisone injection but I do not know what part of body. He may want to consider seeing sports medicine at [facility] for shot. Need to know what body part. * Telephone Encounter - Chani Malcolm OSA - 01/30/2024 2:56 PM EDT An order was requested for this patient. Name of Requesting Provider: patient Order Requested: cortizone shot Diagnosis/Reason for Request: n/a If order request is for Mammogram: Is the patient having any breast symptoms? No Is there a chance of ? No Has the patient had any breast problems in the past? No What location AND department [facility] the [facility] Fax Number, if applicable: n/a If the caller is not a current patient, please advise the patient to call their current PCP to havethe order's prior to being seen in our office. The patient was informed that our providers would not order anything (medication, labs, etc.) prior to being seen. documented in this encounter Plan of Treatment Upcoming Encounters Date Type Department Care Team (Late st Contact Info) Description 03/06/2024 1:20 PM EDT [facility] [address] [facility] [address] Juarez Pacheco MD [address] [place] [facility] [place] [address] Health Maintenance Due Date Last Done Comments [...] 10/23/2018 Depression Screening 01/09/2022 01/09/2021 COVID-19 Vaccine ( - season) 2023 GFR 07/09/2023 07/09/2022, 0312/2021, 09/25/2020, Additional history exists HbA1c 07/09/2023 07/09/2022, 01/06/2022 Influenza Vaccine (FLU shot) (Season Ended) 2024 10/01/2020, 10/01/2019, 08/09/2018, Additional history exists DTaP,Tdap,and Td Vaccines (2 - Td or [...] Not on filedocumented as of this encounter Care Teams Signs Sales Representative Relationship Specialty Start Date End Date Juarez Pacheco MD [address] [place] [facility] [place] [address] PCP - General 09/09/10 documented as of this encounter
--- OUTSIDE RECORDS SUMMARY | 2024-02-26 17:45 | External Medical Summary | Summary of Care ---
Author Name Unknown Organization [facility] Address [address] [place] [address] Phone [phone] Care Team Providers Care Ground Crewman Mission Support Name Role Phone Juarez Pacheco MD Primary Care Provider [phone] Reason for Visit * Reason Onset Date Comments Order Request 01/30/2024 Encounter Details Date Type Department Care Team (Late st Contact Info) Description 01/30/2024 Telephone [facility] [address] [place] [address] Juarez Pacheco MD [address] [place] [address] Order Request Allergies No known [...] encounter Miscellaneous Notes * Telephone Encounter - Alicia Moser OSA - 02/09/2024 10:00 AM EDT [...] given option to see sports med at [facility]. They would inject as well. * Telephone [...] want to consider seeing sports medicine at [facility] for shot. Need to know what body [...] wish to have their order completed at? [facility] Fax Number, if applicable: n/a If the [...] Care Team (Late st Contact Info) Description 02/17/2024 3:40 PM EDT Office Visit [address] [address] Juarez Pacheco MD [address] [place] [address] Health Maintenance Due Date Last Done Comments [...] Depression Screening 01/09/2022 01/09/2021 COVID-19 Vaccine ( season) 2023 GFR 07/09/2023 07/09/2022, 12/2021, 09/25/2020, Additional history [...] filedocumented as of this encounter Care Teams Ground Crewman Mission Support Relationship Specialty Start Date End Date Juarez Pacheco MD [address] [place] [address] PCP - General 09/09/10 documented as of this encounter
--- OUTSIDE RECORDS SUMMARY | 2024-02-26 17:46 | External Medical Summary | Summary of Care ---
Author Name Unknown Organization [facility] Address [address] [place] [address] Phone [phone] Care Team Providers Care Unit Director Name Role Phone Juarez Pacheco MD Primary Care Provider [phone] Reason for Visit * Reason Onset Date Comments Order Request 01/30/2024 Encounter Details Date Type Department Care Team (Late st Contact Info) Description 01/30/2024 Telephone [facility] [address] [place] [address] Juarez Pacheco MD [address] [place] [address] Order Request Allergies No known active allergiesdocumented as of this encounter (statuses as of 02/02/2024) Medications Medication Sig Dispensed Refills Start Date End Date Status ASPIRIN 81 MG PO CHEWIndications:HTN, goal below 130/80,Shortness of breath,Chest pain,Palpitations take one tablet daily 34 Tab 11 09/09/2010 Active [facility] D3 25 MCG (1000 UT) Oral Capsule (Cholecalciferol)Ind ications:Vitamin D deficiency TAKE BY MOUTH 1 CAPSULE IN THE MORNING. TO START AFTER 12 WEEKS OF HIGH DOSE.. 90 Capsule 3 12/08/2022 Active Lisinopril 40 MG Oral TabletIndications:HT N, goal below 130/80 Take 0.5 Tablets by mouth in the morning and 0.5 Tablets before bedtime. 90 Tablet 2 01/04/2023 Active Fluticasone Propionate HFA 110 MCG/ACT Inhalation Aerosol (Flovent HFA)Indications:COPD , severity to be determined (HCC) Inhale 2 Puffs by mouth in the morning and 2 Puffs before bedtime. 36 g 2 01/04/2023 Active Torsemide 20 MG Oral Tablet (Demadex)Indications :Chronic diastolic heart failure (HCC) TAKE 1 TABLET BY MOUTH EVERY MORNING TAKE 1 TABLET BY MOUTH EVERY EVENING 180 Tablet 0 11/04/2023 Active HYDROcodone-Acetamin ophen 5-325 MG Oral TabletIndications:Barb mbar and sacral osteoarthritis,Prima ry localized osteoarthrosis, lower leg, left Take 1 Tablet by mouth every 8 hours as needed for Other (pain). 90 Tablet 0 01/05/2024 Active Spironolactone 25 MG Oral Tablet (Aldactone)Indicatio ns:Chronic diastolic heart failure (HCC) Take 0.5 Tablets by mouth in the morning. 45 Tablet 0 01/05/2024 Active Albuterol Sulfate HFA 108 (90 Base) MCG/ACT Inhalation Aerosol SolutionIndications: COPD, severity to be determined (HCC) INHALE 2 PUFFS BY MOUTH 4 TIMES A DAY NEEDED FOR WHEEZING 18 g 0 01/20/2024 Active Hospital, Clinic, or Other Facility Administered Medication Ordered Dose Route Frequency Start Date End Date Status albuterol sulfate (PROVENTIL) (2.5 MG/3ML) 0.083% inhalation solution 2.5 mgIndications:COPD, severity to be determined (HCC) 2.5 mg NEBULIZER Q4H PRN 10/13/2018 Active documented as of this encounter (statuses as of 02/02/2024) Active Problems Problem Noted Date Diagnosed Date [...] as of this encounter (statuses as of 02/02/2024) Resolved Problems Problem Noted Date Diagnosed Date Resolved Date Palpitations 09/09/2010 10/10/2018 Shortness of breath 09/09/2010 10/10/20 18 HTN, goal below 130/80 07/30/201001/06 Obesity, morbid (more than 1 00 lbs over ideal weight or BMI > 40) 2010 08/11/2017 Overview: Per Obesity protocol #1 - ICD-10 update of inactive term documented as of this encounter (statuses as of 02/02/2024) Immunizations Name Administration Dates Next Due Pneumococcal [...] encounter Miscellaneous Notes * Telephone Encounter - Juarez Pacheco MD - 02/02/2024 12:24 PM EDT Ok to schedule Pt for OV for injection . Not urgent. He can be given option to see sports med at [facility]. They would inject as well. [...] want to consider seeing sports medicine at [facility] for shot. Need to know [...] wish to have their order completed at? [facility] Fax Number, if applicable: n/a [...] Description 02/08/2024 11:40 AM EDT Office Visit [facility] [address] [place] [address] Juarez Pacheco MD [address] [place] [address] Health Maintenance Due Date Last Done [...] 08/09/2018, Additional history exists GFR 07/09/2023 07/09/2022, 03/0 12/2021, 09/25/2020, Additional history exists HbA1c 07/09/2023 [...] filedocumented as of this encounter Care Teams Unit Director Relationship Specialty Start Date End Date Juarez Pacheco MD [address] [place] [address] PCP - General 09/09/10 documented as of this encounter
--- OUTSIDE RECORDS SUMMARY | 2024-02-26 17:46 | External Medical Summary | Summary of Care ---
Author Name Unknown Organization [facility] Address [address] [place] [address] Phone [phone] Care Team Providers Care Watch Parts Grinder Name Role Phone Juarez Pacheco MD Primary Care Provider [phone] Reason for Visit * Reason Onset Date Comments Order Request 01/30/2024 Encounter Details Date Type Department Care Team (Late st Contact Info) Description 01/30/2024 Telephone [facility] [address] [place] [address] Juarez Pacheco MD [address] [place] [address] Order Request Allergies No known active allergiesdocumented as of this encounter (statuses as of 02/01/2024) Medications Medication Sig Dispensed Refills Start Date [...] as of this encounter (statuses as of 02/01/2024) Active Problems Problem Noted Date Diagnosed Date [...] as of this encounter (statuses as of 02/01/2024) Resolved Problems Problem Noted Date Diagnosed Date Resolved Date Palpitations 09/09/2010 10/10/2018 Shortness of breath 09/09/2010 10/10/20 18 HTN, goal below 130/80 07/30/201001/06 Obesity, morbid (more than 1 00 lbs over ideal weight or BMI > 40) 2010 08/11/2017 Overview: Per Obesity protocol #1 - ICD-10 update of inactive term documented as of this encounter (statuses as of 02/01/2024) Immunizations Name Administration Dates Next Due Pneumococcal [...] encounter Miscellaneous Notes * Telephone Encounter - Juanita Carmona LPN [...] want to consider seeing sports medicine at [facility] for shot. Need to know [...] wish to have their order completed at? [facility] Fax Number, if applicable: n/a If the [...] Description 02/08/2024 11:40 AM EDT Office Visit [facility] [address] [place] [facility] [place] [address] Juarez Pacheco MD [address] [facility] [place] [id number] Health Maintenance Due Date Last Done Comments [...] Screening 01/09/2022 01/09/2021 COVID-19 Vaccine ( - 2022- season) 2023 Influenza Vaccine (FLU shot) (#1) [...] filedocumented as of this encounter Care Teams Watch Parts Grinder Relationship Specialty Start Date End Date Juarez Pacheco MD [address] [place] [address] PCP - General 09/09/10 documented as of this encounter
--- OUTSIDE RECORDS SUMMARY | 2024-02-26 17:46 | External Medical Summary | Summary of Care ---
Author Name Unknown Organization [facility] Address [address] [place] [address] Phone [phone] Care Team Providers Care Product Engineering Manager Name Role Phone Consuelo Pacheco MD Primary Care Provider [phone] Reason for Referral * Medication Prior Authorization - Closed Specialty Diagnoses / Procedures Referred By Jian t Referred To Contact Diagnoses Lumbar and sacral osteoarthritis Primary localized osteoarthrosis, lower leg, left Conseulo Pacheco MD [address] [place] [address] Referral ID Status Reason Start Date Expiration Date Visits Re quested Visits Authorized [id number] Closed 999 999 Reason for Visit * Reason Onset Date Comments Medication Refill 10/05/2023 Encounter Details Date Type Department Care Team (Late st Contact Info) Description 10/05/[address] [facility] [address] [place] [id number] Consuelo Pacheco MD [address] [place] [address] Lumbar and sacral osteoarthritis; Primary localized osteoarthrosis, lower leg, left; COPD, severity to be determined (HCC) Allergies No known active allergiesdocumented as of this encounter (statuses as of 10/05/2023) Medications Medication Sig Dispensed Refills Start Date [...] HIGH DOSE.. 90 Capsule 3 12/08/2022 Active Spironolactone 25 MG Oral Tablet (Aldactone)Indica tions:Chronic diastolic heart failure (HCC) Take 0.5 Tablets by mouth in the morning. 45 Tablet 1 01/04/2023 Active Lisinopril 40 MG Oral TabletIndications :HTN, goal below 130/80 Take 0.5 Tablets by mouth in the morning and 0.5 Tablets before bedtime. 90 Tablet 2 01/04/2023 Active Torsemide 20 MG Oral Tablet (Demadex)Indicati ons:Chronic diastolic heart failure (HCC) TAKE 1 TABLET BY MOUTH EVERY MORNING TAKE 1 TABLET BY MOUTH EVERY EVENING 180 Tablet 2 01/04/2023 Active Fluticasone Propionate HFA 110 MCG/ACT Inhalation Aerosol (Flovent HFA)Indications:C OPD, severity to be determined (HCC) Inhale 2 Puffs by mouth in the morning and 2 Puffs before bedtime. 36 g 2 01/04/2023 Active HYDROcodone-Aceta minophen 5-325 MG Oral TabletIndications :Lumbar and sacral osteoarthritis,Pr imary localized osteoarthrosis, lower leg, left Take 1 Tablet by mouth every 8 hours as needed for Other (pain). 90 Tablet 0 10/05/2023 Active Albuterol Sulfate HFA 108 (90 Base) MCG/ACT Inhalation Aerosol SolutionIndicatio ns:COPD, severity to be determined (HCC) INHALE 2 PUFFS BY MOUTH 4 TIMES A DAY NEEDED FOR WHEEZING 18 g 1 10/05/2023 Active Albuterol Sulfate HFA 108 (90 Base) MCG/ACT Inhalation Aerosol SolutionIndicatio ns:COPD, severity to be determined (HCC) INHALE 2 PUFFS BY MOUTH 4 TIMES A DAY NEEDED FOR WHEEZING 18 g 0 09/06/2023 10/05/2023 Discontinued (Refill) HYDROcodone-Aceta minophen 5-325 MG Oral TabletIndications :Lumbar and sacral osteoarthritis,Pr imary localized osteoarthrosis, lower leg, left Take 1 Tablet by mouth every 8 hours as needed for Other (pain). 90 Tablet 0 09/07/2023 10/05/2023 Discontinued (Refill) Hospital, Clinic, or Other Facility Administered Medication Ordered Dose Route Frequency Start Date End Date Status albuterol sulfate (PROVENTIL) (2.5 MG/3ML) 0.083% inhalation solution 2.5 mgIndications:COPD, severity to be determined (HCC) 2.5 mg NEBULIZER Q4H PRN 10/13/2018 Active documented as of this encounter (statuses as of 10/05/2023) Active Problems Problem Noted Date Diagnosed Date [...] as of this encounter (statuses as of 10/05/2023) Resolved Problems Problem Noted Date Diagnosed Date Resolved Date Palpitations 09/09/2010 10/10/2018 Shortness of breath 09/09/2010 10/10/20 18 HTN, goal below 130/80 07/30/201001/06 Obesity, morbid (more than 1 00 lbs over ideal weight or BMI > 40) 2010 08/11/2017 Overview: Per Obesity protocol #1 - ICD-10 update of inactive term documented as of this encounter (statuses as of 10/05/2023) Immunizations Name Administration Dates Next Due Pneumococcal Polysaccharide PPV23 (Pneumovax) 03/15/2012 SEASONAL INFLUENZA, PF, 6 M & Above, IM , (FLULAVAL or FLUZONE) 10/01/2020,10/01/2019,08/09/2018,10/0810/26/2018 Seasonal Influenza, Quadriva lent, No Preserve, [...] Telephone Encounter - Consuelo Pacheco MD - 10/05/2023 8:17 PM ESTSigned Prescriptions: Disp Refills HYDROcodone-Acetaminophen 5-325 MG Oral Ta*90 Tab*0 Sig: Take 1 Tablet by mouth every 8 hours as needed for Other (pain). Authorizing Provider: CONSUELO PACHECO Albuterol Sulfate HFA 108 (90 Base) MCG/AC*18 g 1 Sig: INHALE 2 PUFFS BY MOUTH 4 TIMES A DAY NEEDED FOR WHEEZING Authorizing Provider: CONSUELO PACHECO Order ing User: DURA, ROSE MARY * Telephone Encounter - Radha Gonzalez blasting contract man - 10/05/2023 4:16 PM ESTPending Prescriptions: Disp Refills HYDROcodone-Acetaminophen 5-325 MG Oral Ta*90 Tab*0 Sig: Take 1 Tablet by mouth every 8 hours as needed for Other (pain). Signed Prescriptions: Disp Refills Albuterol Sulfate HFA 108 (90 Base) MCG/AC*18 g 1 Sig: INHALE 2 PUFFS BY MOUTH 4 TIMES A DAY NEEDED FOR WHEEZING Authorizing Provid er: CONSUELO PACHECO Ordering User: DURA, ROSE MARY * Telephone Encounter - Radha Gonzalez PHARM Tech - 10/05/2023 4:16 PM EST Received message from [facility] regarding patient needing appointment. Placed call to patient to advise. Pt was agreeable to set up office visit. Patient scheduled for 10/25/2023. Thank you, Radha Gonzalez [employer] [facility] 10/05/2023, 4:16 PM * Telephone Encounter - Marielena Szymanski [facility] - 10/05/2023 3:48 PM ESTPending Prescriptions: Disp Refills HYDROcodone-Acetaminophen 5-325 MG Oral Ta*90 Tab*0 Sig: Take 1 Tablet by mouth every 8 hours as needed for Other (pain). Signed Prescriptions: Disp Refills Albuterol Sulfate HFA 108 (90 Base) MCG/AC*18 g 1 Sig: INHALE 2 PUFFS BY MOUTH 4 TIMES A DAY NEEDED FOR WHEEZING Authorizing Provid er: CONSUELO PACHECO Ordering User: ROSE MARY MCALLISTER Electronically signed by Marielena Szymanski [facility] at 10/05/2023 3:48 PM EST * Telephone Encounter - Rose Mary Mcallister [facility] - 10/05/2023 3:12 PM ESTPending Prescriptions: Disp Refills HYDROcodone-Acetaminophen 5-325 MG Oral Ta*90 Tab*0 Sig: Take 1 Tablet by mouth every 8 hours as needed for Other (pain). Signed Prescriptions: Disp Refills Albuterol Sulfate HFA 108 (90 Base) MCG/AC*18 g 1 Sig: INHALE 2 PUFFS BY MOUTH 4 TIMES A DAY NEEDED FOR WHEEZING Authorizing Provid er: CONSUELO PACHECO Ordering User: ROSE MARY MCALLISTER Electronically signed by Rose Mary Mcallister [facility] at 10/05/2023 3:12 PM EST * Telephone Encounter - Rose Mary Mcallister [facility] - 10/05/2023 3:12 PM EST Please contact patient so that an appointment can be scheduled with his PRIMARY CARE provider before this refill can be authorized. After contacting patient, please forward request to Consuelo Pacheco MD. Last Visit: 07/09/2022 (in office), 06/16/2020 (telemedicine) Next Visit: Visit date not found Thanks, Rose Mary Mcallister PharmD Clinical Pharmacist [facility] ([facility]) [phone] 10/05/2023, 3:12 PM * Telephone Encounter - Rose Mary Mcallister RPh - 10/05/2023 3:11 PM EST I have reviewed the patients controlled substance dispensing history in the Prescription Drug Monitoring Program in compliance with the [facility] regulations before prescribing a controlled substance. PDMP checked on 10/05/2023. Pending Prescriptions: Disp Refills HYDROcodone-Acetaminophen 5-325 MG Oral T*90 Tab*0 Sig: Take 1 Tablet by mouth every 8 hours as needed for Other (pain). Albuterol Sulfate HFA 108 (90 Base) MCG/A*18 g 0 Sig: INHALE 2 PUFFS BY MOUTH 4 TIMES A DAY NEEDED FOR WHEEZING Last Visit: 07/09/2022 (in office), 06/16/2020 (telemedicine) Next Visit: Visit date not found Date medication was last filled: 09/07/23 Date medication is due for refill: 10/06/23 Pharmacy: [id number] Is this request for a controlled substance? [...] REQUEST. Cutoff Concentration Please approve if appropriate. ThanksRose Mary PharmD Clinical Pharmacist [facility] ([facility]) [phone] 10/05/2023, 3:11 PM * Telephone Encounter - Eric Jeffrey PHARM Tech - 10/05/2023 11:55 AM EST Did you pend patient's preferred pharmacy and medication before forwarding?yes Pharmacy: [id number] [address] [facility] Pending Prescriptions: Disp Refills HYDROcodone-Acetaminophen 5-325 MG Oral T*90 Tab*0 Sig: Take 1 Tablet by mouth every 8 hours as needed for Other (pain). Albuterol Sulfate HFA 108 (90 Base) MCG/A*18 g 0 Sig: INHALE 2 PUFFS BY MOUTH 4 TIMES A DAY NEEDED FOR WHEEZING Last Visit: 07/09/2022 (in office), 06/16/2020 (telemedicine) Next Visit: Visit date not found If no future appointments scheduled, and last appointment is greater than a year ago, please schedule patient for a follow-up appointment Last date the medication was ordered: 09/07/2023, 09/06/2023 Is this request for a controlled substance?Yes, What was the last refill date 09/07/2023 w/ [email or web address] and dosage 5-325mg and Urine Drug Screen was completed Urine [...] Care Team (Late st Contact Info) Description 10/25/2023 3:00 PM EST Office Visit [facility] [address] [place] [address] Consuelo Pacheco MD [address] [place] [address] Health Maintenance Due Date Last Done Comments COVID-19 Vaccine (#1) 01/28/1966 Albumin/Creatinine Ratio 1981 Alpha-1 Antitrypsin 1981 O2 ASSESSMENT COMPLETED IN PAST YEAR FOR COPD 1981 Pneumococcal Vaccine: Pediatrics (0 to 5 Years) and At-Risk Patients (6 to 64 Years) (2 - PCV) 03/15/2013 03/15/2012 Zoster Vaccines (1 of 2) 2013 COLONOSCOPY-EVERY 5 YRS AGES 18-100 10/01/2018 10/01/2013 *CXR OR CT FOR COPD EVER 10/23/2018 Depression Screening 01/09/2022 01/09/2021 Influenza Vaccine (FLU shot) (#1) 2023 10/01/2020, [...] myelopathy Primary localized osteoarthrosis, lower leg, left COPD, severity to be determined (HCC) Chronic airway obstruction, not elsewhere classified documented in this encounter Care Teams Product Engineering Manager Relationship Specialty Start Date End Date Consuelo Pacheco MD [address] [place] [address] PCP - General 09/09/10 documented as of this encounter
--- OUTSIDE RECORDS SUMMARY | 2024-02-26 17:46 | External Medical Summary | Summary of Care ---
Author Name Unknown Organization [facility] Address [address] [place] [address] Phone [phone] Care Team Providers Care Area Director Name Role Phone Consuelo Pacheco MD Primary Care Provider [phone] Reason for Referral * Medication Prior Authorization - Closed Specialty Diagnoses / Procedures Referred By Jian choi Referred To Contact Diagnoses Lumbar and sacral osteoarthritis Primary localized osteoarthrosis, lower leg, left Consuelo Pacheco MD [address] [place] [address] Referral ID Status Reason Start Date Expiration Date Visits Re quested Visits Authorized [id number] Closed 999 999 Reason for Visit * Reason Onset Date Comments Medication Refill 09/05/2023 Encounter Details Date Type Department Care Team (Late st Contact Info) Description 09/05/2023 Refill [facility] [address] [place] [phone] Consuelo Pacheco MD [address], [place] [id number] COPD, severity to be determined (HCC); Lumbar and sacral osteoarthritis; Primary localized osteoarthrosis, lower leg, left Allergies No known active allergiesdocumented as of this encounter (statuses as of 09/07/2023) Medications Medication Sig Dispensed Refills Start Date [...] before bedtime. 36 g 2 01/04/2023 Active Albuterol Sulfate HFA 108 (90 Base) MCG/ACT Inhalation Aerosol SolutionIndicatio ns:COPD, severity to be determined (HCC) INHALE 2 PUFFS BY MOUTH 4 TIMES A DAY NEEDED FOR WHEEZING 18 g 0 09/06/2023 Active HYDROcodone-Aceta minophen 5-325 MG Oral TabletIndications :Lumbar and sacral osteoarthritis,Pr imary localized osteoarthrosis, lower leg, left Take 1 Tablet by mouth every 8 hours as needed for Other (pain). 90 Tablet 0 09/07/2023 Active HYDROcodone-Aceta minophen 5-325 MG Oral TabletIndications :Lumbar and sacral osteoarthritis,Pr imary localized osteoarthrosis, lower leg, left Take 1 Tablet by mouth every 8 hours as needed for Other (pain). 90 Tablet 0 08/04/2023 09/05/2023 Discontinued (Refill) Albuterol Sulfate HFA 108 (90 Base) MCG/ACT Inhalation Aerosol SolutionIndicatio ns:COPD, severity to be determined (HCC) INHALE 2 PUFFS BY MOUTH 4 TIMES A DAY NEEDED FOR WHEEZING 18 g 0 08/04/2023 09/05/2023 Discontinued (Refill) Hospital, Clinic, or Other Facility Administered Medication Ordered Dose Route Frequency Start Date End Date Status albuterol sulfate (PROVENTIL) (2.5 MG/3ML) 0.083% inhalation solution 2.5 mgIndications:COPD, severity to be determined (HCC) 2.5 mg NEBULIZER Q4H PRN 10/13/2018 Active documented as of this encounter (statuses as of 09/07/2023) Active Problems Problem Noted Date Diagnosed Date [...] as of this encounter (statuses as of 09/07/2023) Resolved Problems Problem Noted Date Diagnosed Date Resolved Date Palpitations 09/09/2010 10/10/2018 Shortness of breath 09/09/2010 10/10/20 18 HTN, goal below 130/80 07/30/201001/06 Obesity, morbid (more than 1 00 lbs over ideal weight or BMI > 40) 2010 08/11/2017 Overview: Per Obesity protocol #1 - ICD-10 update of inactive term documented as of this encounter (statuses as of 09/07/2023) Immunizations Name Administration Dates Next Due Pneumococcal [...] = 0.6 oz pur e alcohol) rare Sex and Gender Information Value Date Recorded Sex Assigned at Male 02/08/2019 2:56 PM EDT Gender Identity Male 02/08/2019 2:56 PM EDT Sexual Orientation Straight 02/08/2019 2: 56 PM EDT Job Start Date Occupation Industry Not on file Not on file Not on file documented as of this encounter Miscellaneous Notes * Telephone Encounter - Consuelo Pacheco MD - 09/07/2023 10:32 AM EDTSigned Prescriptions: Disp Refills Albuterol Sulfate HFA 108 (90 Base) MCG/AC*18 g 0 Sig: INHALE 2PUFFS BY MOUTH 4 TIMES A DAY NEEDED FOR WHEEZINGAuthorizing Provider: CONSUELO PACHECO User: BRITTANI DE JESUS HYDROcodone- Acetaminophen 5-325 MG Oral Ta*90 Tab*0 Sig: Take 1 Tablet by mouth every 8 hours as needed for Other (pain).Authorizing Provider: CONSUELO PACHECO------ * Telephone Encounter - Consuelo Pacheco MD - 09/07/2023 10:32 AM EDTSigned Prescriptions: Disp Refills Albuterol Sulfate HFA 108 (90 Base) MCG/AC*18 g 0 Sig: INHALE 2PUFFS BY MOUTH 4 TIMES A DAY NEEDED FOR WHEEZINGAuthorizing Provider: CONSUELO PACHECO User: BRITTANI DE JESUS HYDROcodone- Acetaminophen 5-325 MG Oral Ta*90 Tab*0 Sig: Take 1 Tablet by mouth every 8 hours as needed for Other (pain).Authorizing Provider: CONSUELO PACHECO------ * Telephone Encounter - Natasha Mills supervisor heading - 09/06/2023 3:28 PM EDT Patient's girlfriend calling to check on status of Hydrocodon Thank you for your assistance Natasha Mills Shotblast Equipment Operator II [facility] ([facility]) ([facility]) 09/06/2023,3:28 PM * Telephone Encounter - Fay Carrion CPhT - 09/06/2023 12:57 PM EDT Patient's girlfriend calling to check on status of Hydrocodone. Thank you, Fay Carrion Press Operator Apprentice [facility] 09/06/2023, 12:57 PM * Telephone Encounter - Brittani De Jesus [facility] - 09/06/2023 9:19 AM EDT Pending Prescriptions: Disp Refills HYDROcodone-Acetaminophen 5-325 MG Oral Ta*90 Tab*0 Sig: Take 1 Tablet by mouth every 8 hours as needed for Other (pain). Signed Prescriptions: Disp Refills Albuterol Sulfate HFA 108 (90 Base) MCG/AC*18 g 0 Sig: INHALE 2 PUFFS BY MOUTH 4 TIMES A DAY NEEDED FOR WHEEZING Authorizing Provid er: CONSUELO PACHECO Ordering User: BRITTANI DE JESUS * Telephone Encounter - Brittani De Jesus RPh - 09/06/2023 9:18 AM EDT I have reviewed the patients controlled substance dispensing history in the Prescription Drug Monitoring Program in compliance with the [facility] regulations before prescribing a controlled substance. PDMP checked on 09/06/2023. Pending Prescriptions: Disp Refills HYDROcodone-Acetaminophen 5-325 MG Oral T*90 Tab*0 Sig: Take 1 Tablet by mouth every 8 hours as needed for Other (pain). Signed Prescriptions: Disp Refills Albuterol Sulfate HFA 108 (90 Base) MCG/AC*18 g 0 Sig: INHALE 2 PUFFS BY MOUTH 4 TIMES A DAY NEEDED FOR WHEEZING Authorizing Provider: CONSUELO PACHECO Ordering User: BRITTANI DE JESUS Last Visit: 07/09/2022 (in office), 06/16/2020 (telemedicine) Next Visit: 10/04/2023 Date medication was last filled: 08/05/23 Date medication is due for refill: 09/03/23 Pharmacy: [id number] Is this request for a controlled [...] REQUEST. Cutoff Concentration Please approve if appropriate. Thank you, Brittani De Jesus PharmD Clinical Pharmacist [facility] ([facility]) ([facility]) [phone] 09/06/2023, 9:18 AM * Telephone Encounter - Natasha Mills PHARM Tech - 09/05/2023 10:39 AM EDT Did you pend patient's preferred pharmacy and medication before forwarding?yes Pharmacy: [facility] #[id number] Pending Prescriptions: Disp Refills Albuterol Sulfate HFA 108 (90 Base) MCG/A*18 g 0 Sig: INHALE 2 PUFFS BY MOUTH 4 TIMES A DAY NEEDED FOR WHEEZING HYDROcodone-Acetaminophen 5-325 MG Oral T*90 Tab*0 Sig: Take 1 Tablet by mouth every 8 hours as needed for Other (pain). Last Visit: 07/09/2022 (in office), 06/16/2020 (telemedicine) Next Visit: 10/04/2023 If no future appointments scheduled, and last appointment is greater than a year ago, please schedule patient for a follow-up appointment Last date the medication was ordered: 08/04 Is this request for a controlled substance?Yes, What was the last refill date 08/04 w/ quantity 90 and dosage 5 325 mg and Urine Drug Screen Not completed Urine Drug Screen: Results for orders [...] Care Team (Late st Contact Info) Description 10/04/2023 3:00 PM EST Office Visit [facility] [address] [place] [address] Consuelo Pacheco MD [address] [place] [address] Health Maintenance Due Date Last [...] as of this encounter Visit Diagnoses Diagnosis COPD, severity to be determined (HCC) Chronic airway obstruction, not elsewhere classified Lumbar and sacral osteoarthritis Lumbosacral spondylosis without myelopathy Primary localized osteoarthrosis, lower leg, left documented in this encounter Care Teams Area Director Relationship Specialty Start Date End Date Consuelo Pacheco MD [address] [place] [address] PCP - General 09/09/10 documented as of this encounter
--- OUTSIDE RECORDS SUMMARY | 2024-02-26 17:46 | External Medical Summary | Summary of Care ---
Author Name Unknown Organization [facility] Address [address] [place] [address] Phone [phone] Care Team Providers Care Derrick Boat Leverman Name Role Phone Consuelo Pacheco MD Primary Care Provider Reason for Referral * Medication Prior Authorization - Closed Specialty Diagnoses / Procedures Referred By Jian t Referred To Contact Diagnoses Lumbar and sacral osteoarthritis Primary localized osteoarthrosis, lower leg, left Consuelo Pacheco MD [address] [place] [address] Referral ID Status Reason Start Date Expiration Date Visits Re quested Visits Authorized [id number] Closed 999 999 Reason for Visit * Reason Onset Date Comments Medication Refill 01/04/2024 Encounter Details Date Type Department Care Team (Late st Contact Info) Description 01/04/2024 Refill [facility] [address] [place] [address] Consuelo Pacheco MD [address] [place] [address] Lumbar and sacral osteoarthritis; Primary localized osteoarthrosis, lower leg, left; Chronic diastolic heart failure (HCC) Allergies No known active allergiesdocumented as of this encounter (statuses as of 01/05/2024) Medications Medication Sig Dispensed Refills Start Date [...] EVERY EVENING 180 Tablet 0 11/04/2023 Active Albuterol Sulfate HFA 108 (90 Base) MCG/ACT Inhalation Aerosol SolutionIndicatio ns:COPD, severity to be determined (HCC) INHALE 2 PUFFS BY MOUTH 4 TIMES A DAY NEEDED FOR WHEEZING 18 g 0 12/07/2023 Active HYDROcodone-Aceta minophen 5-325 MG Oral TabletIndications :Lumbar and sacral osteoarthritis,Pr imary localized osteoarthrosis, lower leg, left Take 1 Tablet by mouth every 8 hours as needed for Other (pain). 90 Tablet 0 01/05/2024 Active Spironolactone 25 MG Oral Tablet (Aldactone)Indica tions:Chronic diastolic heart failure (HCC) Take 0.5 Tablets by mouth in the morning. 45 Tablet 0 01/05/2024 Active Spironolactone 25 MG Oral Tablet (Aldactone)Indica tions:Chronic diastolic heart failure (HCC) Take 0.5 Tablets by mouth in the morning. 45 Tablet 1 01/04/2023 01/04/2024 Discontinued (Refill) HYDROcodone-Aceta minophen 5-325 MG Oral TabletIndications :Lumbar and sacral osteoarthritis,Pr imary localized osteoarthrosis, lower leg, left Take 1 Tablet by mouth every 8 hours as needed for Other (pain). 90 Tablet 0 12/07/2023 01/04/2024 Discontinued (Refill) Hospital, Clinic, or Other Facility Administered Medication Ordered Dose Route Frequency Start Date End Date Status albuterol sulfate (PROVENTIL) (2.5 MG/3ML) 0.083% inhalation solution 2.5 mgIndications:COPD, severity to be determined (HCC) 2.5 mg NEBULIZER Q4H PRN 10/13/2018 Active documented as of this encounter (statuses as of 01/05/2024) Active Problems Problem Noted Date Diagnosed Date [...] as of this encounter (statuses as of 01/05/2024) Resolved Problems Problem Noted Date Diagnosed Date Resolved Date Palpitations 09/09/2010 10/10/2018 Shortness of breath 09/09/2010 10/10/20 18 HTN, goal below 130/80 07/30/201001/06 Obesity, morbid (more than 1 00 lbs over ideal weight or BMI > 40) 2010 08/11/2017 Overview: Per Obesity protocol #1 - ICD-10 update of inactive term documented as of this encounter (statuses as of 01/05/2024) Immunizations Name Administration Dates Next Due Pneumococcal [...] Telephone Encounter - Consuelo Pacheco MD - 01/05/2024 7:38 AM ESTSigned Prescriptions: Disp Refills HYDROcodone-Acetaminophen 5-325 MG Oral Ta*90 Tab*0 Sig: Take 1 Tablet by mouth every 8 hours as needed for Other (pain). Authorizing Provider: CONSUELO PACHECO Spironolactone 25 MG Oral Tablet (Aldacton*45 Tab*0 Sig: Take 0.5 Tablets by mouth in the morning. Authorizing Provider: CONSUELO PACHECO * Telephone Encounter - Nicole Samuels [facility] - 01/05/2024 6:32 AM ESTPending Prescriptions: Disp Refills HYDROcodone-Acetaminophen 5-325 MG Oral Ta*90 Tab*0 Sig: Take 1 Tablet by mouth every 8 hours as needed for Other (pain). Spironolactone 25 MG Oral Tablet (Aldacton*45 Tab*0 Sig: Take 0.5 Tablets by mouth in the morning. * Telephone Encounter - Nicole Samuels [facility] - 01/05/2024 6:31 AM EST Patient last seen Jul 2022 Multiple messages for patient to schedule OV Please approve if appropriate Thank You, Nicole Samuels [facility] Clinical Pharmacist Centralized Clinical Pharmacy Services (CCPS) (formerly Telepharmacy) [phone] 01/05/2024, 6:32 AM * Telephone Encounter - Nicole Samuels [facility] - 01/05/2024 6:30 AM EST I have reviewed the patients controlled substance dispensing history in the Prescription Drug Monitoring Program in compliance with the [facility] regulations before prescribing a controlled substance. PDMP checked on 01/05/2024. Pending Prescriptions: Disp Refills HYDROcodone-Acetaminophen 5-325 MG Oral T*90 Tab*0 Sig: Take 1 Tablet by mouth every 8 hours as needed for Other (pain). Spironolactone 25 MG Oral Tablet (Aldacto*45 Tab*0 Sig: Take 0.5 Tablets by mouth in the morning. Last Visit: 07/09/2022 (in office), 06/16/2020 (telemedicine) Next Visit: Visit date not found Date medication was last filled: 12/07/23 Date medication is due for refill: 01/05/24 Pharmacy: [id number] [address] [place] [address] Is this request for a controlled substance? [...] Cutoff Concentration Please approve if appropriate. Thank You, Nicole Samuels [facility] Clinical Pharmacist Centralized Clinical Pharmacy Services (CCPS) (formerly Telepharmacy) [phone] 01/05/2024, 6:31 AM * Telephone Encounter - Nery Costello criminalist - 01/04/2024 10:13 AM EST Did you pend patient's preferred pharmacy and medication before forwarding?yes Pharmacy: [id number] [address] [place] [address] Pending Prescriptions: Disp Refills HYDROcodone-Acetaminophen 5-325 MG Oral T*90 Tab*0 Sig: Take 1 Tablet by mouth every 8 hours as needed for Other (pain). Spironolactone 25 MG Oral Tablet (Aldacto*45 Tab*1 Sig: Take 0.5 Tablets by mouth in the morning. Last Visit: 07/09/2022 (in office), 06/16/2020 (telemedicine) Next Visit: Visit date not found If no future appointments scheduled, and last appointment is greater than a year ago, please schedule patient for a follow-up appointment Last date the medication was ordered: 12/07/2023 Is this request for a controlled substance?Take 1 Tablet by mouth every 8 hours as needed for Other(pain) Urine Drug Screen: Results for orders placed [...] documented in this encounter Plan of Treatment Health Maintenance Due Date Last Done Comments [...] Screening 01/09/2022 01/09/2021 COVID-19 Vaccine (1 - 2022- season) 2023 Influenza Vaccine (FLU [...] myelopathy Primary localized osteoarthrosis, lower leg, left Chronic diastolic heart failure (HCC) Chronic diastolic heart failure documented in this encounter Care Teams Derrick Boat Leverman Relationship Specialty Start Date End Date Consuelo Pacheco MD [address] [place] [address] PCP - General 09/09/10 documented as of this encounter
--- OUTSIDE RECORDS SUMMARY | 2024-02-26 17:46 | External Medical Summary | Summary of Care ---
Author Name Unknown Organization [facility] Address [address] [place] [address] Phone [phone] Care Team Providers Care Landscaper Helper Name Role Phone Juarez Pacheco MD Primary Care Provider [phone] Reason for Visit * Reason Onset Date Comments Order Request 01/30/2024 Encounter Details Date Type Department Care Team (Late st Contact Info) Description 01/30/2024 Telephone [facility] [address] [place] [address] Juarez Pacheco MD [address] [place] [address] Order Request Allergies No known [...] encounter Miscellaneous Notes * Telephone Encounter - Anabella Mansfield LPN [...] want to consider seeing sports medicine at [facility] for shot. Need to know what [...] wish to have their order completed at? [facility] Fax Number, if applicable: n/a If the [...] 02/08/2024 11:40 AM EDT Office Visit [facility] [address] [place] [address] Juarez Pacheco MD [address] [place] [address] Health Maintenance Due Date Last [...] 01/09/2021 COVID-19 Vaccine ( - season) 2023 Influenza Vaccine (FLU shot) [...] filedocumented as of this encounter Care Teams Landscaper Helper Relationship Specialty Start Date End Date Juarez Pacheco MD [address] [place] [address] PCP - General 09/09/10 documented as of this encounter
--- OUTSIDE RECORDS SUMMARY | 2024-02-26 17:46 | External Medical Summary | Summary of Care ---
Author Name Unknown Organization [facility] Address [address] [place] [address] Phone [phone] Care Team Providers Care Marking Stitcher Name Role Phone Consuelo Pacheco MD Primary Care Provider [phone] Reason for Referral * Medication Prior Authorization - Closed Specialty Diagnoses / Procedures Referred By Jian choi Referred To Contact Diagnoses Lumbar and sacral osteoarthritis Primary localized osteoarthrosis, lower leg, left Consuelo Pacheco MD [address] [place] [address] Referral ID Status Reason Start Date Expiration Date Visits Re quested Visits Authorized [id number] Closed 999 999 Reason for Visit * Reason Onset Date Comments Medication Refill 11/02/2023 Left Message 11/02/2023 Encounter Details Date Type Department Care Team (Late st Contact Info) Description 11/02/[address] [facility] [address] [place] [address] Consuelo Pacheco MD [address] [place] [address] Lumbar and sacral osteoarthritis; Primary localized osteoarthrosis, lower leg, left Allergies No known active allergiesdocumented as of this encounter (statuses as of 11/03/2023) Medications Medication Sig Dispensed Refills Start Date [...] FOR WHEEZING 18 g 1 10/05/2023 Active HYDROcodone-Aceta minophen 5-325 MG Oral TabletIndications :Lumbar and sacral osteoarthritis,Pr imary localized osteoarthrosis, lower leg, left Take 1 Tablet by mouth every 8 hours as needed for Other (pain). 90 Tablet 0 11/03/2023 Active HYDROcodone-Aceta minophen 5-325 MG Oral TabletIndications :Lumbar and sacral osteoarthritis,Pr imary localized osteoarthrosis, lower leg, left Take 1 Tablet by mouth every 8 hours as needed for Other (pain). 90 Tablet 0 10/05/2023 11/02/2023 Discontinued (Refill) Hospital, Clinic, or Other Facility Administered Medication Ordered Dose Route Frequency Start Date End Date Status albuterol sulfate (PROVENTIL) (2.5 MG/3ML) 0.083% inhalation solution 2.5 mgIndications:COPD, severity to be determined (HCC) 2.5 mg NEBULIZER Q4H PRN 10/13/2018 Active documented as of this encounter (statuses as of 11/03/2023) Active Problems Problem Noted Date Diagnosed Date [...] as of this encounter (statuses as of 11/03/2023) Resolved Problems Problem Noted Date Diagnosed Date Resolved Date Palpitations 09/09/2010 10/10/2018 Shortness of breath 09/09/2010 10/10/20 18 HTN, goal below 130/80 07/30/201001/06 Obesity, morbid (more than 1 00 lbs over ideal weight or BMI > 40) 2010 08/11/2017 Overview: Per Obesity protocol #1 - ICD-10 update of inactive term documented as of this encounter (statuses as of 11/03/2023) Immunizations Name Administration Dates Next Due Pneumococcal [...] Telephone Encounter - Consuelo Pacheco MD - 11/03/2023 2:03 PM ESTSigned Prescriptions: Disp Refills HYDROcodone-Acetaminophen 5-325 MG Oral Ta*90 Tab*0 Sig: Take 1 Tablet by mouth every 8 hours as needed for Other (pain). Authorizing Provider: CONSUELO PACHECO * Telephone Encounter - Edel Yee [facility] - 11/03/2023 1:31 PM ESTPending Prescriptions: Disp Refills HYDROcodone-Acetaminophen 5-325 MG Oral Ta*90 Tab*0 Sig: Take 1 Tablet by mouth every 8 hours as needed for Other (pain). * Telephone Encounter - Edel Yee CPhT - 11/03/2023 1:31 PM EST Received message from [facility] regarding patient needing appointment. Placed call to patient to advise. Left message on voicemail to call back and schedule appointment. Thank you, Edel Yee CPhT [facility] Clinical Pharmacy Services ( Formerly Telepharmacy) 11/03/2023,1:31 PM * Telephone Encounter - Murphy Angelo [facility] - 11/02/2023 5:10 PM ESTPending Prescriptions: Disp Refills HYDROcodone-Acetaminophen 5-325 MG Oral Ta*90 Tab*0 Sig: Take 1 Tablet by mouth every 8 hours as needed for Other (pain). * Telephone Encounter - Murphy Angelo [facility] - 11/02/2023 5:08 PM EST Images from the original note were not included. 3rd attempt Please contact patient so that an appointment can be scheduled with his PRIMARY CARE provider before this refill can be authorized. After contacting patient, please forward request to Consuelo Pacheco MD. Last Visit: 07/09/2022 (in office), 06/16/2020 (telemedicine) Next Visit: Visit date not found I have reviewed the patients controlled substance dispensing history in the Prescription Drug Monitoring Program in compliance with the [facility] regulations before prescribing a controlled substance. PDMP checked on 11/02/2023. Pending Prescriptions: Disp Refills HYDROcodone-Acetaminophen 5-325 MG Oral T*90 Tab*0 Sig: Take 1 Tablet by mouth every 8 hours as needed for Other (pain). Last Visit: 07/09/2022 (in office), 06/16/2020 (telemedicine) Next Visit: Visit date not found Date medication was last filled: 10-07-23 Date medication is due for refill: 11-05-23 [id number] [address] [place] [address] Is this request for a controlled substance? [...] Cutoff Concentration Please approve if appropriate. Thanks, Aurea QuevedoPh. Clinical Pharmacist Centralized Clinical Pharmacy Services [phone] 11/02/2023,5:10 PM * Telephone Encounter - aCit Franco, continuous improvement lead - 11/02/2023 8:22 AM EST Did you pend patient's preferred pharmacy and medication before forwarding?yes [id number] Pending Prescriptions: Disp Refills HYDROcodone-Acetaminophen 5-325 MG [...] appointment Last date the medication was ordered: 10-05-23 Is this request for a controlled substance?Yes, What was the last refill date 10-05-23 w/ quantity 90 and dosage 5-325 mg and Urine Drug Screen was completed Urine [...] left documented in this encounter Care Teams Marking Stitcher Relationship Specialty Start Date End Date Consuelo Pacheco MD [address] [place] [address] PCP - General 09/09/10 documented as of this encounter
--- OUTSIDE RECORDS SUMMARY | 2024-02-26 17:46 | External Medical Summary | Summary of Care ---
Author Name Unknown Organization [facility] Address [address] [place] [address] Phone [phone] Care Team Providers Care Respiratory Therapy Director Name Role Phone Juarez Pacheco MD Primary Care Provider [phone] Reason for Visit * Reason Onset Date Comments Order Request 01/30/2024 Encounter Details Date Type Department Care Team (Late st Contact Info) Description 01/30/2024 Telephone [facility] [address] [place] [address] Juarez Pacheco MD [address] [place] [address] Order Request Allergies No known active allergiesdocumented as of this encounter (statuses as of 01/31/2024) Medications Medication Sig Dispensed Refills Start Date [...] as of this encounter (statuses as of 01/31/2024) Active Problems Problem Noted Date Diagnosed Date [...] as of this encounter (statuses as of 01/31/2024) Resolved Problems Problem Noted Date Diagnosed Date Resolved Date Palpitations 09/09/2010 10/10/2018 Shortness of breath 09/09/2010 10/10/20 18 HTN, goal below 130/80 07/30/201001/06 Obesity, morbid (more than 1 00 lbs over ideal weight or BMI > 40) 2010 08/11/2017 Overview: Per Obesity protocol #1 - ICD-10 update of inactive term documented as of this encounter (statuses as of 01/31/2024) Immunizations Name Administration Dates Next Due Pneumococcal [...] consider seeing sports medicine at [facility] for shot. Need to know what body [...] wish to have their order completed at? [facility] Fax Number, if applicable: n/a If [...] Description 02/08/2024 11:40 AM EDT Office [facility] [address] [facility] [address] Juarez Pacheco MD [address] [place] [facility] [place] [address] Health Maintenance Due Date Last Done [...] 08/09/2018, Additional history exists GFR 07/09/2023 07/09/2022, 030 12/2021, 09/25/2020, Additional history exists HbA1c 07/09/2023 [...] filedocumented as of this encounter Care Teams Respiratory Therapy Director Relationship Specialty Start Date End Date Juarez Pacheco MD [address] [place] [address] PCP - General 09/09/10 documented as of this encounter
--- OUTSIDE RECORDS SUMMARY | 2024-02-26 17:46 | External Medical Summary | Summary of Care ---
Author Name Unknown Organization [facility] Address [address] [place] [address] Phone [phone] Care Team Providers Care Pot Fireman Name Role Phone Consuelo Pacheco MD Primary Care Provider [phone] Reason for Referral * Medication Prior Authorization - Closed Specialty Diagnoses / Procedures Referred By Jian t Referred To Contact Diagnoses Lumbar and sacral osteoarthritis Primary localized osteoarthrosis, lower leg, left Consuelo Pacheco MD [address] [place] [address] Referral ID Status Reason Start Date Expiration Date Visits Re quested Visits Authorized [id number] Closed 999 999 Reason for Visit * Reason Onset Date Comments Medication Refill 10/05/2023 Encounter Details Date Type Department Care Team (Late st Contact Info) Description 10/05/2023 Refill [facility] [address] [place] [address] Consuelo Pacheco MD [address], [place] [phone] Lumbar and sacral osteoarthritis; Primary localized osteoarthrosis, lower leg, left; COPD, severity to be determined (HCC) Allergies No known active allergiesdocumented as of this encounter (statuses as of 10/07/2023) Medications Medication Sig Dispensed Refills Start Date [...] as of this encounter (statuses as of 10/07/2023) Active Problems Problem Noted Date Diagnosed Date [...] as of this encounter (statuses as of 10/07/2023) Resolved Problems Problem Noted Date Diagnosed Date Resolved Date Palpitations 09/09/2010 10/10/2018 Shortness of breath 09/09/2010 10/10/20 18 HTN, goal below 130/80 07/30/201001/06 Obesity, morbid (more than 1 00 lbs over ideal weight or BMI > 40) 2010 08/11/2017 Overview: Per Obesity protocol #1 - ICD-10 update of inactive term documented as of this encounter (statuses as of 10/07/2023) Immunizations Name Administration Dates Next Due Pneumococcal [...] encounter Miscellaneous Notes * Telephone Encounter - Jie Martin CPhT - 10/07/2023 4:54 PM EST Pt EC calling to request HYDROcodone-Acetaminophen 5-325 MG Oral Table . Informed pt that RX is available at their pharmacy. Pt verbalized understanding and stated they will check with their pharmacyregarding this medication. Thank you, Jie Martin Slicer Machine Operator Centralized Clinical Pharmacy Services (CCPS) (Formerly Telepharmacy) 10/07/2023,4:54 PM * Telephone Encounter - Tahira Perez, surveillance systems engineer - 10/06/2023 11:15 AM ESTSigned Prescriptions: Disp Refills HYDROcodone-Acetaminophen 5-325 MG Oral Ta*90 Tab*0 Sig: Take 1 Tablet by mouth every 8 hours as needed for Other (pain).Authorizing Provider: CONSUELO PACHECO Albuterol Sulfate HFA 108 (90 Base) MCG/AC*18 g 1 Sig: INHALE 2 PUFFS BY MOUTH 4 TIMES A DAY NEEDED FOR WHEEZINGAuthorizing Provider: CONSUELO PACHECO User: ROSE MARY MCALLISTER * Telephone Encounter - Consuelo Pacheco MD [...] NEEDED FOR WHEEZING Authorizing Provider: CONSUELO PACHECO ing User: ROSE MARY MCALLISTER * Telephone Encounter - Radha Gonzalez, surveillance systems engineer - 10/05/2023 4:16 PM ESTPending Prescriptions: Disp [...] CONSUELO PACHECO Ordering User: ROSE MARY MCALLISTER * Telephone Encounter - Radha Gonzalez PHARM Tech - 10/05/2023 4:16 PM EST Received message from [facility] regarding patient needing appointment. Placed call to patient to advise. Pt was agreeable to set up office visit. Patient scheduled for 10/25/2023. Thank you, Radha Gonzalez Slicer Machine Operator [facility] 10/05/2023, 4:16 PM * Telephone Encounter - Marielena Szymanski [facility] - 10/05/2023 3:48 PM ESTPending Prescriptions: Disp [...] CONSUELO PACHECO Ordering User: ROSE MARY MCALLISTER * Telephone Encounter - Rose Mary Mcallister RPh - 10/05/2023 3:12 PM ESTPending Prescriptions: Disp [...] CONSUELO PACHECO Ordering User: ROSE MARY MCALLISTER * Telephone Encounter - Rose Mary Mcallister RPh - 10/05/2023 3:12 PM EST Please contact patient so that an appointment can be scheduled with his PRIMARY CARE provider before this refill can be authorized. After contacting patient, please forward request to Consuelo Pacheco MD. Last Visit: 07/09/2022 (in office), 06/16/2020 (telemedicine) Next Visit: Visit date not found Rose Mary Wilson PharmSophia Clinical Pharmacist Centralized Clinical Pharmacy Services (CCPS) [phone] 10/05/2023, 3:12 PM * Telephone Encounter - [...] medication is due for refill: 10/06/23 Pharmacy: [id number] [address] [facility] Is this request for a controlled substance? [...] Clinical Pharmacist Centralized Clinical Pharmacy Services (CCPS) [phone] 10/05/2023, 3:11 PM * Telephone Encounter - Eric Jeffrey PHARM Tech - 10/05/2023 11:55 AM EST Did you pend patient's preferred pharmacy and medication before forwarding?yes Pharmacy: [id number] [address] [facility] Pending Prescriptions: Disp Refills HYDROcodone-Acetaminophen 5-325 MG [...] was the last refill date 09/07/2023 w/ [id number] and dosage 5-325mg and Urine Drug Screen [...] Description 10/25/2023 3:00 PM EST Office Visit [facility] [address] [place] [address] Consuelo Pacheco MD [address] [place] [address] Health Maintenance Due Date Last [...] classified documented in this encounter Care Teams Pot Fireman Relationship Specialty Start Date End Date Consuelo Pacheco MD [address] [place] [address] PCP - General 09/09/10 documented as of this encounter
--- OUTSIDE RECORDS SUMMARY | 2024-02-26 17:46 | External Medical Summary | Summary of Care ---
Author Name Unknown Organization [facility] Address [address] [place] [address] Phone [phone] Care Team Providers Care Chief Order Dispatcher Name Role Phone Juarez Pacheco MD Primary Care Provider [phone] Reason for Visit * Reason Onset Date Comments Order Request 01/30/2024 Encounter Details Date Type Department Care Team (Late st Contact Info) Description 01/30/2024 Telephone [facility] [address] [place] [address] Juarez Pacheco MD [address] [place] [address] Order Request Allergies No known [...] encounter Miscellaneous Notes * Telephone Encounter - Ailcia Moser OSA - 02/03/2024 9:20 AM EDT LMOM. 02/03/2024 * Telephone Encounter - Juarez Pacheco MD - 02/02/2024 12:24 PM EDT Ok to schedule Pt for OV for injection . Not urgent. He can be given option to see sports med at [facility]. They would inject as well. [...] want to consider seeing sports medicine at [facility] for shot. Need to know [...] Description 02/08/2024 11:40 AM EDT Office Visit [facility] [address] [place] [address] Juarez Pacheco MD [address] [place] [address] Health Maintenance Due Date Last [...] Screening 01/09/2022 01/09/2021 COVID-19 Vaccine (1 - 24 season) 2023 Influenza Vaccine (FLU shot) (#1) 2023 10/01/2020, 10/01/2019, 08/09/2018, Additional history exists GFR 07/09/2023 07/09/2022, 0312/2021, 09/25/2020, Additional history [...] filedocumented as of this encounter Care Teams Chief Order Dispatcher Relationship Specialty Start Date End Date Juarez Pacheco MD [address] [place] [address] PCP - General 09/09/10 documented as of this encounter
--- OUTSIDE RECORDS SUMMARY | 2024-02-26 17:46 | External Medical Summary | Summary of Care ---
Author Name Unknown Organization [facility] Address [address] [place] [address] Phone [phone] Care Team Providers Care Plug Machine Operator Name Role Phone Juarez Pacheco MD Primary Care Provider [phone] Reason for Visit * Reason Onset Date Comments Health Maintenance 09/08/2023 Encounter Details Date Type Department Care Team (Late st Contact Info) Description 09/08/2023 Telephone [facility] [address] [place] [address] Juarez Pacheco MD [address] [place] [address] Health Maintenance Allergies No known active allergiesdocumented as of this encounter (statuses as of 09/08/2023) Medications Medication Sig Dispensed Refills Start Date [...] 12/08/2022 Active Spironolactone 25 MG Oral Tablet (Aldactone)Indicatio ns:Chronic diastolic heart failure (HCC) Take 0.5 Tablets by mouth in the morning. 45 Tablet 1 01/04/2023 Active Lisinopril 40 MG Oral TabletIndications:HT N, [...] FOR WHEEZING 18 g 0 09/06/2023 Active HYDROcodone-Acetamin ophen 5-325 MG Oral TabletIndications:Barb mbar and sacral osteoarthritis,Prima ry localized osteoarthrosis, lower leg, left Take 1 Tablet by mouth every 8 hours as needed for Other (pain). 90 Tablet 0 09/07/2023 Active Hospital, Clinic, or Other Facility Administered Medication Ordered Dose Route Frequency Start Date End Date Status albuterol sulfate (PROVENTIL) (2.5 MG/3ML) 0.083% inhalation solution 2.5 mgIndications:COPD, severity to be determined (HCC) 2.5 mg NEBULIZER Q4H PRN 10/13/2018 Active documented as of this encounter (statuses as of 09/08/2023) Active Problems Problem Noted Date Diagnosed Date [...] as of this encounter (statuses as of 09/08/2023) Resolved Problems Problem Noted Date Diagnosed Date Resolved Date Palpitations 09/09/2010 10/10/2018 Shortness of breath 09/09/2010 10/10/20 18 HTN, goal below 130/80 07/30/201001/06 Obesity, morbid (more than 1 00 lbs over ideal weight or BMI > 40) 2010 08/11/2017 Overview: Per Obesity protocol #1 - ICD-10 update of inactive term documented as of this encounter (statuses as of 09/08/2023) Immunizations Name Administration Dates Next Due Pneumococcal [...] encounter Miscellaneous Notes * Telephone Encounter - Lola Espinoza LPN - 09/08/2023 1:35 PM EDT Care Gaps Comprehensive Care Outreach Last Office/Telemedicine Visit: 07/09/2022 (in office), 06/16/2020 (telemedicine) Next Office Visit: 10/04/2023 Hemoglobin AIC Results: Lab Results Component Value Date/Time HEMOGLOBIN A1C - [facility] 5.9 (H) 07/09/2022 11:52 AM HEMOGLOBIN A1C - [facility] 5.8 (H) 01/06/2022 08:17 AM Reviewed Health Maintenance below: Health Maintenance Topic Date Due COVID-19 Vaccine (1) Never done Albumin/Creatinine Ratio Never done Alpha-1 Antitrypsin Never done O2 ASSESSMENT COMPLETED IN PAST YEAR FOR COPD Never done Pneumococcal Vaccine: Pediatrics (0 to 5 Years) and At-Risk Patients (6 to 64 Years) (2 - PCV) 03/15/2013 Zoster Vaccines (1 of 2) Never done COLONOSCOPY-EVERY 5 YRS AGES 18-100 10/01/2018 *CXR OR CT FOR COPD EVER Never done Depression Screening 01/09/2022 Influenza Vaccine (FLU shot) (1) 07/08/2023 HbA1c 07/09/2023 GFR 07/09/2023 Urine/labs Colon Care Gap Outreach Action Taken: Left message documented in this encounter Plan of Treatment Upcoming Encounters Date Type Department Care Team (Late st Contact Info) Description 10/04/2023 3:00 PM EST Office Visit [facility] [address] [place] [address] Juarez Pacheco MD [address] [place] [address] Health Maintenance Due Date Last Done Comments [...] filedocumented as of this encounter Care Teams Plug Machine Operator Relationship Specialty Start Date End Date Juarez Pacheco MD [address] [place] [address] PCP - General 09/09/10 documented as of this encounter
--- OUTSIDE RECORDS SUMMARY | 2024-02-26 17:46 | External Medical Summary | Summary of Care ---
Author Name Unknown Organization [facility] Address [address] [place] [address] Phone [phone] Care Team Providers Care Field Crop Farmer Name Role Phone Consuelo Pacheco MD Primary Care Provider [phone] Reason for Visit * Reason Onset Date Comments Medication Refill 01/18/2024 Encounter Details Date Type Department Care Team (Late st Contact Info) Description 01/18/2024 Refill [facility] [address] [place] [address] Consuelo Pacheco MD [address] [place] [address] COPD, severity to be determined (HCC) Allergies No known active allergiesdocumented as of this encounter (statuses as of 01/20/2024) Medications Medication Sig Dispensed Refills Start Date [...] EVERY EVENING 180 Tablet 0 11/04/2023 Active HYDROcodone-Aceta minophen 5-325 MG Oral TabletIndications [...] FOR WHEEZING 18 g 0 01/20/2024 Active Albuterol Sulfate HFA 108 (90 Base) MCG/ACT Inhalation Aerosol SolutionIndicatio ns:COPD, severity to be determined (HCC) INHALE 2 PUFFS BY MOUTH 4 TIMES A DAY NEEDED FOR WHEEZING 18 g 0 12/07/2023 01/18/2024 Discontinued (Refill) Hospital, Clinic, or Other Facility Administered Medication Ordered Dose Route Frequency Start Date End Date Status albuterol sulfate (PROVENTIL) (2.5 MG/3ML) 0.083% inhalation solution 2.5 mgIndications:COPD, severity to be determined (HCC) 2.5 mg NEBULIZER Q4H PRN 10/13/2018 Active documented as of this encounter (statuses as of 01/20/2024) Active Problems Problem Noted Date Diagnosed Date [...] as of this encounter (statuses as of 01/20/2024) Resolved Problems Problem Noted Date Diagnosed Date Resolved Date Palpitations 09/09/2010 10/10/2018 Shortness of breath 09/09/2010 10/10/20 18 HTN, goal below 130/80 07/30/201001/06 Obesity, morbid (more than 1 00 lbs over ideal weight or BMI > 40) 2010 08/11/2017 Overview: Per Obesity protocol #1 - ICD-10 update of inactive term documented as of this encounter (statuses as of 01/20/2024) Immunizations Name Administration Dates Next Due Pneumococcal [...] encounter Miscellaneous Notes * Telephone Encounter - Brittani De Jesus RPh - 01/20/2024 7:19 AM EDT RX authorized. Zero refills given until upcoming OV. Thank you, Brittani De Jesus, PharmD Staff Pharmacist Refill Call Center [phone] 01/20/2024, 7:19 AM * Telephone Encounter - Brittani De Jesus RPh - 01/20/2024 7:19 AM EDTSigned Prescriptions: Disp Refills Albuterol Sulfate HFA 108 (90 Base) MCG/AC*18 g 0 Sig: INHALE 2 PUFFS BY MOUTH 4 TIMES A DAY NEEDED FOR WHEEZING Authorizing Provider: CONSUELO PACHECO Ordering User: BRITTANI DE JESUS * Telephone Encounter - Setphanie Llanos [facility] - 01/18/2024 2:43 PM EDT PATIENT TRANSFERRED TO SCHEDULING FOR ROUTINE WELLNESS APPOINTMENT Did you pend patient's preferred pharmacy and medication before forwarding?yes [id number] Pending Prescriptions: Disp Refills Albuterol Sulfate HFA [...] appointment Last date the medication was ordered: [id number] Is this request for a controlled substance?No Urine Drug Screen: Results for orders placed [...] Description 02/08/2024 11:40 AM EDT Office Visit [address] [address] Consuelo Pacheco MD [address] [place] [address] Health Maintenance Due Date Last Done Comments [...] classified documented in this encounter Care Teams Field Crop Farmer Relationship Specialty Start Date End Date Consuelo Pacheco MD [address] [place] [facility] [place] [address] PCP - General 09/09/10 documented as of this encounter
--- OUTSIDE RECORDS SUMMARY | 2024-02-26 17:46 | External Medical Summary | Summary of Care ---
Author Name Unknown Organization [facility] Address [address] [place] [address] Phone [phone] Care Team Providers Care Director Manufacturing Engineering Name Role Phone Consuelo Pacheco MD Primary Care Provider [phone] Reason for Visit * Reason Comments eRx-Medication Refill Encounter Details Date Type Department Care Team (Late st Contact Info) Description 11/03/2023 Refill [facility] [address] [place] [address] Consuelo Pacheco MD [address] [place] [address] Chronic diastolic heart failure (HCC) Allergies No known active allergiesdocumented as of this encounter (statuses as of 11/04/2023) Medications Medication Sig Dispensed Refills Start Date End Date Status ASPIRIN 81 MG PO CHEWIndications: HTN, goal below 130/80,Shortness of breath,Chest pain,Palpitation s take one tablet daily 34 Tab 11 09/09/2010 Active [facility] D3 25 MCG (1000 UT) Oral Capsule (Cholecalciferol )Indications:Vit morrison D deficiency TAKE BY MOUTH 1 CAPSULE IN THE MORNING. TO START AFTER 12 WEEKS OF HIGH DOSE.. 90 Capsule 3 12/08/2022 Active Spironolactone 25 MG Oral Tablet (Aldactone)Indic ations:Chronic diastolic heart failure (HCC) Take 0.5 Tablets by mouth in the morning. 45 Tablet 1 01/04/2023 Active Lisinopril 40 MG Oral TabletIndication s:HTN, goal below 130/80 Take 0.5 Tablets by mouth in the morning and 0.5 Tablets before bedtime. 90 Tablet 2 01/04/2023 Active Fluticasone Propionate HFA 110 MCG/ACT Inhalation Aerosol (Flovent HFA)Indications: COPD, severity to be determined (HCC) Inhale 2 Puffs by mouth in the morning and 2 Puffs before bedtime. 36 g 2 01/04/2023 Active Albuterol Sulfate HFA 108 (90 Base) MCG/ACT Inhalation Aerosol SolutionIndicati ons:COPD, severity to be determined (HCC) INHALE 2 PUFFS BY MOUTH 4 TIMES A DAY NEEDED FOR WHEEZING 18 g 1 10/05/2023 Active HYDROcodone-Acet aminophen 5-325 MG Oral TabletIndication s:Lumbar and sacral osteoarthritis,P rimary localized osteoarthrosis, lower leg, left Take 1 Tablet by mouth every 8 hours as needed for Other (pain). 90 Tablet 0 11/03/2023 Active Torsemide 20 MG Oral Tablet (Demadex)Indicat ions:Chronic diastolic heart failure (HCC) TAKE 1 TABLET BY MOUTH EVERY MORNING TAKE 1 TABLET BY MOUTH EVERY EVENING 180 Tablet 0 11/04/2023 Active Torsemide 20 MG Oral Tablet (Demadex)Indicat ions:Chronic diastolic heart failure (HCC) TAKE 1 TABLET BY MOUTH EVERY MORNING TAKE 1 TABLET BY MOUTH EVERY EVENING 180 Tablet 2 01/04/2023 11/04/2023 Discontinued Hospital, Clinic, or Other Facility Administered Medication Ordered Dose Route Frequency Start Date End Date Status albuterol sulfate (PROVENTIL) (2.5 MG/3ML) 0.083% inhalation solution 2.5 mgIndications:COPD, severity to be determined (HCC) 2.5 mg NEBULIZER Q4H PRN 10/13/2018 Active documented as of this encounter (statuses as of 11/04/2023) Active Problems Problem Noted Date Diagnosed Date [...] as of this encounter (statuses as of 11/04/2023) Resolved Problems Problem Noted Date Diagnosed Date Resolved Date Palpitations 09/09/2010 10/10/2018 Shortness of breath 09/09/2010 10/10/20 18 HTN, goal below 130/80 07/30/201001/06 Obesity, morbid (more than 1 00 lbs over ideal weight or BMI > 40) 2010 08/11/2017 Overview: Per Obesity protocol #1 - ICD-10 update of inactive term documented as of this encounter (statuses as of 11/04/2023) Immunizations Name Administration Dates Next Due Pneumococcal [...] Telephone Encounter - Consuelo Pacheco MD - 11/04/2023 12:39 PM ESTSigned Prescriptions: Disp Refills Torsemide 20 MG Oral Tablet (Demadex) 180 Ta*0 Sig: TAKE 1 TABLET BY MOUTH EVERY MORNING TAKE 1 TABLET BY MOUTH EVERY EVENINGAuthorizing Provider: CONSUELO PACHECO---- * Telephone Encounter - Raghavendra Thomas RPh - 11/04/2023 9:54 AM ESTPending Prescriptions: Disp Refills Torsemide 20 MG Oral Tablet [Pharmacy Med *180 Ta*3 Sig: TAKE 1 TABLET BY MOUTH EVERY MORNING TAKE 1 TABLET BY MOUTH EVERY EVENING * Telephone Encounter - Raghavendra Thomas RPh - 11/04/2023 9:52 AM EST Unable to authorize medication refills for pended medication(s) at this time. Part of the protocol criteria used for refill authorization was not satisfied. Patient needs updated OV per refill protocol. 3 previous contact attempts Please approve if appropriate. Thanks, Joni Thomas, PharmD Clinical Pharmacist [facility] Services ([facility]) (Formerly [facility]) [phone] 11/04/2023 9:53 AM documented in this encounter Plan of [...] as of this encounter Visit Diagnoses Diagnosis Chronic diastolic heart failure (HCC) Chronic diastolic heart failure documented in this encounter Care Teams Director Manufacturing Engineering Relationship Specialty Start Date End Date Consuelo Pacheco MD [address] [address] PCP - General 09/09/10 documented as of this encounter
--- OUTSIDE RECORDS SUMMARY | 2024-02-26 17:46 | External Medical Summary | Summary of Care ---
Author Name Unknown Organization [facility] Address [address] [place] [address] Phone [phone] Care Team Providers Care Facility Administrator Name Role Phone Consuelo Pacheco MD Primary Care Provider [phone] Reason for Referral * Medication Prior Authorization - Closed Specialty Diagnoses / Procedures Referred By Jian t Referred To Contact Diagnoses Lumbar and sacral osteoarthritis Primary localized osteoarthrosis, lower leg, left Consuelo Pacheco MD [address] [place] [address] Referral ID Status Reason Start Date Expiration Date Visits Re quested Visits Authorized [id number] Closed 999 999 Reason for Visit * Reason Onset Date Comments Medication Refill 12/06/2023 Encounter Details Date Type Department Care Team (Late st Contact Info) Description 12/06/2023 Refill [facility] [address] [place] [id number] Consuelo Pacheco MD [address], [place] [id number] Lumbar and sacral osteoarthritis; Primary localized osteoarthrosis, lower leg, left Allergies No known active allergiesdocumented as of this encounter (statuses as of 12/07/2023) Medications Medication Sig Dispensed Refills Start Date [...] for Other (pain). 90 Tablet 0 12/07/2023 Active Albuterol Sulfate HFA 108 (90 Base) MCG/ACT Inhalation Aerosol SolutionIndicatio ns:COPD, severity to be determined (HCC) INHALE 2 PUFFS BY MOUTH 4 TIMES A DAY NEEDED FOR WHEEZING 18 g 1 10/05/2023 12/06/2023 Discontinued (Refill) HYDROcodone-Aceta minophen 5-325 MG Oral TabletIndications :Lumbar and sacral osteoarthritis,Pr imary localized osteoarthrosis, lower leg, left Take 1 Tablet by mouth every 8 hours as needed for Other (pain). 90 Tablet 0 11/03/2023 12/06/2023 Discontinued (Refill) Hospital, Clinic, or Other Facility Administered Medication Ordered Dose Route Frequency Start Date End Date Status albuterol sulfate (PROVENTIL) (2.5 MG/3ML) 0.083% inhalation solution 2.5 mgIndications:COPD, severity to be determined (HCC) 2.5 mg NEBULIZER Q4H PRN 10/13/2018 Active documented as of this encounter (statuses as of 12/07/2023) Active Problems Problem Noted Date Diagnosed Date [...] as of this encounter (statuses as of 12/07/2023) Resolved Problems Problem Noted Date Diagnosed Date Resolved Date Palpitations 09/09/2010 10/10/2018 Shortness of breath 09/09/2010 10/10/20 18 HTN, goal below 130/80 07/30/201001/06 Obesity, morbid (more than 1 00 lbs over ideal weight or BMI > 40) 2010 08/11/2017 Overview: Per Obesity protocol #1 - ICD-10 update of inactive term documented as of this encounter (statuses as of 12/07/2023) Immunizations Name Administration Dates Next Due Pneumococcal [...] Telephone Encounter - Consuelo Pacheco MD - 12/07/2023 5:42 PM ESTSigned Prescriptions: Disp Refills HYDROcodone-Acetaminophen 5-325 MG Oral Ta*90 Tab*0 Sig: Take 1 Tablet by mouth every 8 hours as needed for Other (pain). Authorizing Provider: CONSUELO PACHECO * Telephone Encounter - Raghavendra Beauchamp [facility] - 12/07/2023 9:48 AM ESTPending Prescriptions: Disp Refills HYDROcodone-Acetaminophen 5-325 MG Oral Ta*90 Tab*0 Sig: Take 1 Tablet by mouth every 8 hours as needed for Other (pain). * Telephone Encounter - Raghavendra Beauchamp [facility] - 12/07/2023 9:48 AM EST I have reviewed the patients controlled substance dispensing history in the Prescription Drug Monitoring Program in compliance with the [facility] regulations before prescribing a controlled substance. PDMP checked on 12/07/2023. Pending Prescriptions: Disp Refills HYDROcodone-Acetaminophen 5-325 MG Oral T*90 Tab*0 Sig: Take 1 Tablet by mouth every 8 hours as needed for Other (pain). Last Visit: 07/09/2022 (in office), 06/16/2020 (telemedicine) Next Visit: Visit date not found Date medication was last filled: 11/03/2023 Date medication is due for refill: 12/02/2023 [facility]: [id number] [address] [facility] Is this request for a controlled substance? [...] Cutoff Concentration Please approve if appropriate. Thanks, Raghavendra Beauchamp Pharm.D. Clinical Pharmacist Centralized Clinical Pharmacy Services ([facility])(Formerly [employer]) [phone] 12/07/2023, 9:48 AM * Telephone Encounter - Chana Urbano cvir tech - 12/06/2023 8:12 AM EST Did you pend patient's preferred pharmacy and medication before forwarding?yes Pharmacy: [id number] [address] [facility] Pending Prescriptions: Disp Refills HYDROcodone-Acetaminophen 5-325 [...] appointment Last date the medication was ordered: 11/03/2023 Is this request for a controlled substance?Yes, What was the last refill date 11/03/2023 w/ quantity 90 and dosage 5-325mg and Urine Drug Screen Not completed Urine [...] left documented in this encounter Care Teams Facility Administrator Relationship Specialty Start Date End Date Consuelo Pacheco MD [address] [place] [address] PCP - General 09/09/10 documented as of this encounter
--- OUTSIDE RECORDS SUMMARY | 2024-02-26 17:46 | External Medical Summary | Summary of Care ---
Author Name Unknown Organization [facility] Address [address] [place] [address] Phone [phone] Care Team Providers Care Passport Support Associate Name Role Phone Consuelo Pacheco MD Primary Care Provider [phone] Reason for Visit * Reason Onset Date Comments Medication Refill 12/06/2023 Encounter Details Date Type Department Care Team (Late st Contact Info) Description 12/06/2023 Refill [facility] [address] [place] [address] Consuelo Pacheco MD [address] [place] [address] COPD, severity to be determined [...] 11/03/2023 Active Torsemide 20 MG Oral Tablet (Demadex)Indicati [...] FOR WHEEZING 18 g 0 12/07/2023 Active Albuterol Sulfate HFA 108 (90 Base) MCG/ACT Inhalation Aerosol SolutionIndicatio ns:COPD, severity to be determined (HCC) INHALE 2 PUFFS BY MOUTH 4 TIMES A DAY NEEDED FOR WHEEZING 18 g 1 10/05/2023 12/06/2023 Discontinued (Refill) Hospital, Clinic, or Other [...] encounter Miscellaneous Notes * Telephone Encounter - Radha Gonzalez PHARM Tech - 12/07/2023 9:23 AM EST Received message from [facility] regarding patient needing appointment. Placed call to patient to advise. Left message on voicemail to call back and schedule appointment. Thank you, Radha Gonzalez Molecular Biology Scientist [employer] 12/07/2023, 9:23 AM * Telephone Encounter - Luis Cerda [facility] - 12/07/2023 9:19 AM ESTSigned Prescriptions: Disp Refills Albuterol Sulfate HFA 108 (90 Base) MCG/AC*18 g 0 Sig: INHALE 2 PUFFS BY MOUTH 4 TIMES A DAY NEEDED FOR WHEEZING Authorizing Provider: CONSUELO PACHECO Ordering User: LUIS CERDA * Telephone Encounter - Luis Cerda [facility] - 12/07/2023 9:17 AM EST Please contact patient so that an appointment can be scheduled with his PRIMARY CARE provider. Refill authorized to hold patient over in the mean time. Last Visit: 07/09/2022 (in office), 06/16/2020 (telemedicine) Patient cancelled appt 10/25/2023 Next Visit: Visit date not found Thank You, Luis Cerda, Pharm-D Clinical Pharmacist [facility] ([facility]) (Formerly Telepharmacy) [phone] 12/07/2023, 9:17 AM * Telephone Encounter - Chana Urbano, day porter - 12/06/2023 8:14 AM EST Did you pend patient's preferred pharmacy and medication before forwarding?yes Pharmacy: [id number] [address] [facility] Pending Prescriptions: Disp Refills Albuterol Sulfate HFA 108 (90 Base) MCG/A*18 g 1 Sig: INHALE 2 PUFFS BY MOUTH 4 TIMES A DAY NEEDED FOR WHEEZING Last Visit: 07/09/2022 (in office), 06/16/2020 (telemedicine) Next Visit: Visit date not found If no future appointments scheduled, and last appointment is greater than a year ago, please schedule patient for a follow-up appointment Last date the medication was ordered: 10/05/2023 Is this request for a controlled substance?No [...] classified documented in this encounter Care Teams Passport Support Associate Relationship Specialty Start Date End Date Consuelo Pacheco MD [address] [address] PCP - General 09/09/10 documented as of this encounter
[2024-02-26 18:19] LABS: Basophils # (auto) 0.07 K/uL (0.00-0.20); Basophils % (auto) 0.9 %; Eosinophils # (auto) 0.11 K/uL (0.00-0.50); Eosinophils % (auto) 1.5 %; Hematocrit (blood only) 51.8 % (42.0-52.0); Hemoglobin 15.3 g/dl (14.0-18.0); Immature Granulocytes # (auto) 0.03 K/uL (0.01-0.20); Immature Granulocytes % (auto) 0.4 %; Lymphocytes # (auto) 1.06 K/uL (1.20-3.40); Mean Corpuscular Hemoglobin 30.2 pg (25.0-34.0); Mean Corpuscular Hgb Conc 29.5 g/dL (32.0-36.0); Mean Corpuscular Volume 102.2 fL (80.0-100.0); Mean Platelet Volume 10.8 fL (9.4-12.4); Monocytes # (auto) 0.68 K/uL (0.11-0.59); Neutrophils # (auto) 5.63 K/uL (1.40-6.50); Neutrophils % (auto) 74.2 %; Platelet Count 215 K/uL (130-400); RDW Coefficient of Variation 14.5 % (11.5-14.5); RDW Standard Deviation 54.6 fL (36.4-46.3); Red Blood Count 5.07 M/uL (4.70-6.10); White Blood Count 7.58 K/ul (4.8-10.8)
[2024-02-26] MEDS ORDERED: methylPREDNISolone 1000 MG/16 ML IV ONE (18:24)
--- NOTE | 2024-02-26 18:27 | Emergency Department Note ---
Impression & Plan Acute exacerbation of chronic obstructive pulmonary disease, CHF (congestive heart failure), Pulmonary edema ED Provider Note Provider: Soham Garcia MD DATE OF SERVICE: 02/26/2024 CHIEF COMPLAINT: Short of breath HISTORY OF PRESENT ILLNESS: Patient is a 58-year-old gentleman history of obesity, heart failure, hypertension, and COPD on chronic 4 L of oxygen presenting here via ambulance from his home. States he had worsening breathing and shortness of breath with some mild cough cold symptoms over the past 4 days. Denies significant sore throat or nasal congestion. Denies fever. Denies fall last several days. States his oxygen level at home drops into the 50s when he ambulates to the bathroom on his oxygen. Denies chest pain. Denies syncope. Reports a bit of chronic swelling of his legs. States he is some arthritis in his knee. Has not followed with his doctor in some time but is scheduled for follow-up in the next week or so and states he has some arthritis and is due for an injection of his knee. Has uses inhaler at home with minimal improvement. Nebulizer and route for EMS was helpful. PAST MEDICAL HISTORY: As noted above MEDICATIONS: Reviewed home medications includes oxygen SOCIAL HISTORY: Former smoker PHYSICAL EXAM: GENERAL: alert and oriented in no acute distress on stretcher nasal cannula in place Head: normocephalic and atraumatic EYES: No injection, discharge or icterus. EOMI. NECK: Trachea midline. ENT: Mucous membranes pink and moist. LUNGS: Airway patent. No retractions. Breath sounds diminished with some crackles in the bases and slight expiratory wheeze HEART: Regular rate and rhythm. No chest wall tenderness ABDOMEN: Soft and non-tender, without guarding or rebound. SKIN: Acyanotic, warm, dry, without rashes EXTREMITIES: Without swelling, tenderness or deformity with 1+ edema of the lower extremities. NEUROLOGICAL: No focal deficits. No aphasia. No facial droop or slurred speech. EK bpm incomplete right bundle branch block with what appears to be atrial fibrillation. No acute ST segment elevation or depression with a QTc of 388. Some artifact and T wave changes noted. CONTINUOUS CARDIAC MONITORING: was ordered and showed a heart rate of 70s-80s bpm in what appears to be atrial fibrillation versus sinus with very frequent PACs. Patient's laboratory studies and imaging reviewed. Differential includes Reactive airway disease, pneumonia, pneumothorax, COPD, CHF, infections, cardiac ischemia, pulmonary embolism, musculoskeletal, gastrointestinal, as well as other pathologies. IMPRESSION/MEDICAL DECISION MAKING: Patient presents reporting URI symptoms. Significant history of COPD and chronic oxygen use. Hypoxic on his baseline 4 L. Did receive a DuoNeb prior to arrival. Additional DuoNeb as well as some steroids here. Has a little bit swelling of the legs and history of CHF as well. Chest x-ray obtained here as well as respiratory viral panel and blood work. No fevers reported. Does not seem encephalopathic. Denies any significant pain complaints other than the knees which are chronic. Blood work here without anemia or leukocytosis. Respiratory viral panel negative. EKG obtained as well as troponin and rhythm appears to be regular likely atrial fibrillation less likely chance of just frequent PACs. Troponin not elevated. BNP minimally elevated. Signs of significant acute renal dysfunction. We collected hemolyzed labs was completed. Chest x-ray reviewed no clear lobar pneumonia per radiology no significant edema. BNP is somewhat elevated. No pneumothorax. Will give a dose of some Lasix at this point to see if diuresis helps as well as I believe combination of COPD, heart failure are occurring. Again is possible that he has developed A-fib as well that may be contributing to this but feel that further telemetry monitoring cardiology review in the morning to for determine treatment if this represents A-fib or just PACs. Will need to come into the hospital for further evaluation. Will cover with a dose of doxycycline given his severe history of COPD and comorbidities at this time. DIAGNOSIS: Shortness of breath acute COPD exacerbation, CHF exacerbation DISPOSITION: Hospitalist will evaluate Patient was agreeable with this plan. 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 Beliefs That Will Affect Care: None marital status: Single Current Living Situation: Spouse Current Living Situation Comment: trailer Feels Safe at Home: Yes Safety Concerns: Feels Safe At This Time Assistive Devices: Glasses Allergies Allergies Allergy/AdvReac Type Severity Reaction Status Date / Time No Known Allergies Allergy Verified 09/04/20 16:40 Home Meds Home Medications Medication Instructions Recorded Confirmed albuterol sulfate 90 mcg/actuation 2 puff inhalation QID 09/04/20 02/26/24 aerosol inhaler aspirin 81 mg tablet,delayed 81 mg PO DAILY 09/04/20 02/26/24 release fluticasone propionate 110 1 puff inhalation Q12H 09/04/20 02/26/24 mcg/actuation HFA aerosol inhaler hydrocodone 5 mg-acetaminophen 325 1 tab PO Q6H PRN Pain 09/04/20 02/26/24 mg tablet lisinopril 40 mg tablet 20 mg PO BID 09/04/20 02/26/24 acetaminophen 500 mg tablet 1,000 mg PO Q6H PRN Pain 02/26/24 02/26/24 (Tylenol Extra Strength) Previous Rx's Medication Instructions Recorded Oxygen Home E0424 #1 ea 09/10/20 spironolactone 25 mg tablet 12.5 mg (1/2 x 25 mg) PO DAILY #30 09/10/20 tabs torsemide 20 mg tablet 20 mg PO UD #60 tabs 09/10/20 Results & Data (ED) Vital Signs Vital Signs - 24 hr 02/26/24 17:45 02/26/24 17:45 02/26/24 17:45 Temperature 37.5 C Temperature Source Oral Pulse Rate 80 Pulse Rate from SpO2 Sensor Pulse Rhythm Regular Pulse Strength Normal Respiratory Rate 22 Respiratory Effort / Characteristics Non-Labored Spontaneous Short of Breath Non-Labored Spontaneous Short of Breath Respiratory Depth Normal Normal Respiratory Pattern Regular Regular Blood Pressure 156/109 H Blood Pressure Mean 124 Pulse Oximetry 87 L 94 Oxygen Delivery Method Nasal Cannula Nasal Cannula Room Air Oxygen Flow Rate 4 4 4 Sepsis Recent Fever Within 48 Hours No Sepsis New/Unexplained Change in Mental Status N/A Sepsis Action Taken by Nursing No Action Required 02/26/24 19:26 02/26/24 19:31 02/26/24 21:00 Temperature Temperature Source Pulse Rate 72 74 Pulse Rate from SpO2 Sensor 227 H Pulse Rhythm Pulse Strength Respiratory Rate 20 Respiratory Effort / Characteristics Respiratory Depth Respiratory Pattern Blood Pressure 149/108 H Blood Pressure Mean 121 Pulse Oximetry 94 89 L Oxygen Delivery Method Nasal Cannula Oxygen Flow Rate 4 Sepsis Recent Fever Within 48 Hours Sepsis New/Unexplained Change in Mental Status Sepsis Action Taken by Nursing 02/26/24 21:30 Temperature Temperature Source Pulse Rate 83 Pulse Rate from SpO2 Sensor 96 H Pulse Rhythm Pulse Strength Respiratory Rate 18 Respiratory Effort / Characteristics Respiratory Depth Respiratory Pattern Blood Pressure 149/104 H Blood Pressure Mean 119 Pulse Oximetry 88 L Oxygen Delivery Method Oxygen Flow Rate Sepsis Recent Fever Within 48 Hours Sepsis New/Unexplained Change in Mental Status Sepsis Action Taken by Nursing Laboratory Data 02/26/24 17:53 02/26/24 19:01 Lab Results 02/26/24 02/26/24 02/26/24 Range/Units 17:53 18:20 19:01 WBC 7.58 (4.8-10.8) K/ul RBC 5.07 (4.70-6.10) M/uL Hgb 15.3 (14.0-18.0) g/dl Hct 51.8 (42.0-52.0) % MCV 102.2 H (80.0-100.0) fL MCH 30.2 (25.0-34.0) pg MCHC 29.5 L (32.0-36.0) g/dL RDW Std Deviation 54.6 H (36.4-46.3) fL RDW Coeff of Margaret 14.5 (11.5-14.5) % Plt Count 215 (130-400) K/uL MPV 10.8 (9.4-12.4) fL Immature Gran % (Auto) 0.4 % Neut % (Auto) 74.2 % Lymph % (Auto) 14.0 % Wharton % (Auto) 9.0 % Eos % (Auto) 1.5 % Baso % (Auto) 0.9 % Neut # (Auto) 5.63 (1.40-6.50) K/uL Lymph # (Auto) 1.06 L (1.20-3.40) K/uL Wharton # (Auto) 0.68 H (0.11-0.59) K/uL Eos # (Auto) 0.11 (0.00-0.50) K/uL Baso # (Auto) 0.07 (0.00-0.20) K/uL Immature Gran # (Auto) 0.03 (0.01-0.20) K/uL PT Cancelled 11.1 INR Cancelled 1.0 APTT Cancelled 29 PTT Ratio Cancelled 1.0 VBG pH (7.36-7.41) VBG pCO2 (38-50) mmHg VBG pO2 mmHg VBG HCO3 mmol/L VBG O2 Saturation % VBG Base Excess mEq/L Sodium TNP 143 Potassium TNP 4.5 Chloride 99 (98-107) mmol/L Carbon Dioxide 39 H (21-32) mmol/L Anion Gap TNP BUN 16 (6-23) mg/dl Creatinine 0.89 (0.6-1.4) mg/dl Est Cr Clr Drug Dosing 151.5 ml/min Est GFR ( Amer) 107.7 ml/min Est GFR (Non-Af Amer) 92.9 ml/min BUN/Creatinine Ratio 18.0 (10-20) Glucose 100 H (70-99(Fasting)) mg/dl Calcium 9.2 (8.6-10.3) mg/dl Magnesium TNP 2.0 Total Bilirubin 0.6 (0.2-1.0) mg/dl AST TNP 22 ALT 28 (7-52) U/L Alkaline Phosphatase TNP 82 Troponin I High Sens 17.6 (0-20) pg/ml B-Natriuretic Peptide 269 H (0-100) pg/ml Total Protein 7.8 (6.0-8.3) gm/dl Albumin TNP 4.1 Globulin TNP Albumin/Globulin Ratio TNP TSH 0.942 (0.300-4.500) uIu/ml Adenovirus (PCR) Not Detected (NotDetected) B. pertussis DNA (PCR) Not Detected (NotDetected) B.parapertussis DNA PCR Not Detected (NotDetected) C. pneumoniae DNA (PCR) Not Detected (NotDetected) Coronavirus OC43 (PCR) Not Detected (NotDetected) Coronavirus HKU1 (PCR) Not Detected (NotDetected) Coronavirus 229E (PCR) Not Detected (NotDetected) SARS-CoV-2 (PCR) Not Detected (NotDetected) Coronavirus NL63 (PCR) Not Detected (NotDetected) Human Metapneumovir PCR Not Detected (NotDetected) Influenza Type A (PCR) Not Detected (NotDetected) Influenza Type B (PCR) Not Detected (NotDetected) M. pneumoniae (PCR) Not Detected (NotDetected) Parainfluenza 1 (PCR) Not Detected (NotDetected) Parainfluenza 2 (PCR) Not Detected (NotDetected) Parainfluenza 3 (PCR) Not Detected (NotDetected) Parainfluenza 4 (PCR) Not Detected (NotDetected) RSV (PCR) Not Detected (NotDetected) Entero/Rhino (PCR) Not Detected (NotDetected) 02/26/24 Range/Units 20:02 WBC (4.8-10.8) K/ul RBC (4.70-6.10) M/uL Hgb (14.0-18.0) g/dl Hct (42.0-52.0) % MCV (80.0-100.0) fL MCH (25.0-34.0) pg MCHC (32.0-36.0) g/dL RDW Std Deviation (36.4-46.3) fL RDW Coeff of Margaret (11.5-14.5) % Plt Count (130-400) K/uL MPV (9.4-12.4) fL Immature Gran % (Auto) % Neut % (Auto) % Lymph % (Auto) % Wharton % (Auto) % Eos % (Auto) % Baso % (Auto) % Neut # (Auto) (1.40-6.50) K/uL Lymph # (Auto) (1.20-3.40) K/uL Wharton # (Auto) (0.11-0.59) K/uL Eos # (Auto) (0.00-0.50) K/uL Baso # (Auto) (0.00-0.20) K/uL Immature Gran # (Auto) (0.01-0.20) K/uL PT INR APTT PTT Ratio VBG pH 7.25 L (7.36-7.41) VBG pCO2 100 H (38-50) mmHg VBG pO2 30 mmHg VBG HCO3 44 mmol/L VBG O2 Saturation < 60.0 % VBG Base Excess 12.2 mEq/L Sodium Potassium Chloride (98-107) mmol/L Carbon Dioxide (21-32) mmol/L Anion Gap BUN (6-23) mg/dl Creatinine (0.6-1.4) mg/dl Est Cr Clr Drug Dosing ml/min Est GFR ( Amer) ml/min Est GFR (Non-Af Amer) ml/min BUN/Creatinine Ratio (10-20) Glucose (70-99(Fasting)) mg/dl Calcium (8.6-10.3) mg/dl Magnesium Total Bilirubin (0.2-1.0) mg/dl AST ALT (7-52) U/L Alkaline Phosphatase Troponin I High Sens (0-20) pg/ml B-Natriuretic Peptide (0-100) pg/ml Total Protein (6.0-8.3) gm/dl Albumin Globulin Albumin/Globulin Ratio TSH (0.300-4.500) uIu/ml Adenovirus (PCR) (NotDetected) B. pertussis DNA (PCR) (NotDetected) B.parapertussis DNA PCR (NotDetected) C. pneumoniae DNA (PCR) (NotDetected) Coronavirus OC43 (PCR) (NotDetected) Coronavirus HKU1 (PCR) (NotDetected) Coronavirus 229E (PCR) (NotDetected) SARS-CoV-2 (PCR) (NotDetected) Coronavirus NL63 (PCR) (NotDetected) Human Metapneumovir PCR (NotDetected) Influenza Type A (PCR) (NotDetected) Influenza Type B (PCR) (NotDetected) M. pneumoniae (PCR) (NotDetected) Parainfluenza 1 (PCR) (NotDetected) Parainfluenza 2 (PCR) (NotDetected) Parainfluenza 3 (PCR) (NotDetected) Parainfluenza 4 (PCR) (NotDetected) RSV (PCR) (NotDetected) Entero/Rhino (PCR) (NotDetected) Administered Medications Heparin Sodium/Dextrose (Heparin Sodium/Dextrose) 25,000 units in 500 mls @ 44 mls/hr IV .[id number] [facility]; Protocol Stop: 03/27/24 22:59 Last Admin: 02/27/24 00:21 Dose: 2,200 units/hr, 44 mls/hr Documented By: AURY Co-signed By: MMG Discontinued Medications Albuterol (Albut/Ipratrop 3mg/0.5mg Neb 3 Ml Vial) 12 ml NEB ONE ONE; Protocol Stop: 02/26/24 18:25 Last Admin: 02/26/24 19:09 Dose: 12 ml Documented By: HB Doxycycline Hyclate (Doxycycline Hyclate 100 Mg Cap) 100 mg PO NOW STA Stop: 02/26/24 19:42 Last Admin: 02/26/24 20:19 Dose: 100 mg Documented By: HB Furosemide (Furosemide Inj 20 Mg/2 Ml Vial) 40 mg IV ONE ONE Stop: 02/26/24 19:42 Last Admin: 02/26/24 20:21 Dose: 40 mg Documented By: HB Heparin Sodium/Dextrose (Heparin Iv Adult Wt-Based Standard *No* Initial Bolus Protocol) 1 each IV NOW STA; Protocol Stop: 02/26/24 22:48 Last Admin: 02/27/24 00:25 Dose: Not Given Documented By: AURY Methylprednisolone (Methylprednisolone 125 Mg/2 Ml Vial) 60 mg IV ONE ONE Stop: 02/26/24 18:31 Last Admin: 02/26/24 19:06 Dose: 60 mg Documented By: HB Metoprolol Tartrate (Metoprolol Tartrate 25 Mg Tab) 12.5 mg PO NOW STA Stop: 02/26/24 20:00 Last Admin: 02/26/24 20:20 Dose: 12.5 mg Documented By: HB Morphine Sulfate (Morphine Sulfate 2 Mg/Ml Carp) 2 mg IV NOW STA Stop: 02/26/24 21:58 Last Admin: 02/26/24 22:02 Dose: Not Given Documented By: [facility] Imaging Data Radiologist's Impression: Chest X-Ray 02/26/24 17:57 XR chest 1V portable CLINICAL HISTORY: Dyspnea COMPARISON STUDY: Chest radiograph September 04, 2020. FINDINGS: Mild elevation of the left hemidiaphragm as slightly increased. Linear bibasilar densities favor atelectasis. Mild cardiomegaly is unchanged. There is no evidence for overt pulmonary edema. IMPRESSION: No acute cardiopulmonary findings. Stable cardiomegaly. ACT 112: Negative or not required by law. Electronically signed by: Edmundo Calero M.D. 02/26/2024 7:35 PM Discharge Plan Visit Data Chief Complaint: Shortness of Breath/Dyspnea ED Provider: Soham Garcia Discharge Problem: Acute exacerbation of chronic obstructive pulmonary disease, CHF (congestive heart failure), Pulmonary edema Patient Disposition: Admitted As Inpatient Discharge Instructions Interventions: ED Discharge Assessment Last Done: 02/26/24 23:29
[2024-02-26 18:39] LABS: Alanine Aminotransferase 28 U/L (7-52); Bilirubin,Total 0.6 mg/dl (0.2-1.0); Blood Urea Nitrogen 16 mg/dl (6-23); Calcium 9.2 mg/dl (8.6-10.3); Carbon Dioxide 39 mmol/L (21-32); Chloride 99 mmol/L (98-107); Creatinine Clr Calc Pharmacy 151.5 ml/min; Est GFR (African American) 107.7 ml/min; Est GFR (Non-African American) 92.9 ml/min; Glucose 100 mg/dl (70-99(Fasting)); Total Protein 7.8 gm/dl (6.0-8.3); Troponin I High Sensitivity 17.6 pg/ml (0-20)
[2024-02-26] MEDS: methylPREDNISolone 125 MG/2 ML VIAL IV ONE (19:06)
[2024-02-26] MEDS: ALBUT/IPRATROP 3MG/0.5MG NEB 3 ML VIAL NEB ONE (19:09)
[2024-02-26 19:20] LABS: Adenovirus PCR Not Detected (NotDetected); Bordetella parapertussis PCR Not Detected (NotDetected); Bordetella pertussis PCR Not Detected (NotDetected); Chlamydia pneumoniae PCR Not Detected (NotDetected); Coronavirus 229E PCR Not Detected (NotDetected); Coronavirus CoV-2 (COVID19)PCR Not Detected (NotDetected); Coronavirus HKU1 PCR Not Detected (NotDetected); Coronavirus NL63 PCR Not Detected (NotDetected); Coronavirus OC43PCR Not Detected (NotDetected); Human Metapneumovirus PCR Not Detected (NotDetected); Influenza A PCR Not Detected (NotDetected); Influenza B PCR Not Detected (NotDetected); Mycoplasma pneumoniae PCR Not Detected (NotDetected); Parainfluenza Virus 1 PCR Not Detected (NotDetected); Parainfluenza Virus 2 PCR Not Detected (NotDetected); Parainfluenza Virus 3 PCR Not Detected (NotDetected); Parainfluenza Virus 4 PCR Not Detected (NotDetected); Respiratory Syncytial VirusPCR Not Detected (NotDetected); Rhinovirus/Enterovirus PCR Not Detected (NotDetected)
--- NOTE | 2024-02-26 19:36 | XRay Report ---
XR chest 1V portable CLINICAL HISTORY: Dyspnea COMPARISON STUDY: Chest radiograph September 04, 2020. FINDINGS: Mild elevation of the left hemidiaphragm as slightly increased. Linear bibasilar densities favor atelectasis. Mild cardiomegaly is unchanged. There is no evidence for overt pulmonary edema. IMPRESSION: No acute cardiopulmonary findings. Stable cardiomegaly. ACT 112: Negative or not required by law. Electronically signed by: Edmundo Calero M.D. 02/26/2024 7:35 PM
[2024-02-26 19:50] LABS: Albumin Level 4.1 gm/dl (3.4-5.0); Potassium 4.5 mmol/L (3.5-5.1)
[2024-02-26 20:01] LABS: Partial Thromboplastin Time 29 Seconds (21-31); Prothrombin Time 11.1 Seconds (9.0-12.0)
[2024-02-26 20:13] LABS: Base Excess VBG 12.2 mEq/L; HCO3 VBG 44 mmol/L; Oxygen Saturation VBG < 60.0 %; PCO2 VBG 100 mmHg (38-50); PO2 VBG 30 mmHg; pH VBG 7.25 (7.36-7.41)
[2024-02-26] MEDS: DOXYCYCLINE HYCLATE 100 MG CAP PO STA (20:19)
[2024-02-26] MEDS: METOPROLOL TARTRATE 25 MG TAB PO STA (20:20)
[2024-02-26] MEDS: FUROSEMIDE INJ 20 MG/2 ML VIAL IV ONE (20:21)
[2024-02-26] MEDS ORDERED: oxyCODONE HCL IR 5 MG TAB (IMMEDIATE RELEASE) PO PRN (21:57)
[2024-02-26] MEDS: MoRPHine SULFATE 2 MG/ML CARP IV STA (22:02)
--- NOTE | 2024-02-26 22:34 | History & Physical Report ---
Date of Service February 26, 2024 Assessment & Plan (1) Respiratory failure with hypoxia and hypercapnia: Plan: Acute on chronic hx chronic right-sided heart failure (EF 55 to 60%, TTE 2019) hx Pickwickian syndrome/cor pulmonale as per records/COPD on home O2 Multifactorial: COPD/admission/complicated bronchitis Decompensated heart failure New onset A-fib hypertension, BP slightly elevated Leg swelling secondary to CHF rule out DVT history TIA on aspirin prediabetes, hemoglobin A1c of 5.9 from 2021 past tobacco abuse PCU BiPAP Baseline ABG to follow initial VBG showing respiratory acidosis after BiPAP initiated Doxycycline, prednisone, nebs RTC for COPD exacerbation/complicated bronchitis Pulmonology consult if without improvement Outpatient sleep study Initiate beta-jackie for CHF and A-fib IV heparin for thromboembolic prophylaxis Diuretic Rx, strict I/Os, daily weights, CHF education TTE, Cardiology consult Re: Decompensated heart failure, new onset A-fib LE venous Dopplers rule out DVT Update hemoglobin A1c DVT prophylaxis. Heparin DNR as per patient Total critical care time was 45 minutes. Text document was generated using [employer] voice recognition software. It may contain grammatical or spelling errors. Kindly contact undersigned for clarification of any documentation item in question. History of Present Illness Chief Complaint: Worsening shortness of breath Primary Care Provider: Juarez Pacheco MD History obtained from patient and records. Medical history significant for chronic right-sided heart failure (EF 55 to 60%, TTE 2019), Pickwickian syndrome/cor pulmonale as per records, chronic respiratory failure secondary to COPD on home O2, hypertension, history TIA, prediabetes, past tobacco abuse. Last confinement September 2020 for right-sided heart failure. Patient discharged on diuretic Rx. Probable sleep apnea and OHS as per documentation. Outpatient sleep study recommended. Patient mollified for oxygen at bedtime with abnormal nocturnal nocturnal oximetry. Patient noted unquantified weight gain/fluid retention since last year. Did not see any outpatient providers last year. Patient compliant with medications. Some SOB on exertion. Patient has not had sleep study following 2019 confinement. Last week, patient noted junky cough symptoms. No fever, no chills. Not sure about sick contacts. Denies aspiration. O2 sats of 50s documented on home pulse ox on ambulation. Increase fluid retention/leg swelling noted. Chest pain from coughing. Denies abdominal pain. Solu-Medrol, neb treatment, doxycycline, and Lasix administered at the ER. Medical History as above Surgical History : None Family History : COPD, DM Personal/Social history : Past tobacco abuse, rare EtOH intake, disabled Allergies Allergy/AdvReac Type Severity Reaction Status Date / Time No Known Allergies Allergy Verified 09/04/20 16:40 Home Medications Medication Instructions Recorded Confirmed Type albuterol sulfate 90 mcg/actuation 2 puff inhalation QID 09/04/20 02/26/24 History aerosol inhaler aspirin 81 mg tablet,delayed 81 mg PO DAILY 09/04/20 02/26/24 History release fluticasone propionate 110 1 puff inhalation Q12H 09/04/20 02/26/24 History mcg/actuation HFA aerosol inhaler hydrocodone 5 mg-acetaminophen 325 1 tab PO Q6H PRN Pain 09/04/20 02/26/24 History mg tablet lisinopril 40 mg tablet 20 mg PO BID 09/04/20 02/26/24 History Oxygen Home E0424 #1 ea 09/10/20 02/26/24 Rx spironolactone 25 mg tablet 12.5 mg (1/2 x 25 mg) PO DAILY #30 09/10/20 02/26/24 Rx tabs torsemide 20 mg tablet 20 mg PO UD #60 tabs 09/10/20 02/26/24 Rx acetaminophen 500 mg tablet 1,000 mg PO Q6H PRN Pain 02/26/24 02/26/24 History (Tylenol Extra Strength) Past Med/Surg History Medical History COPD (chronic obstructive pulmonary disease) HTN (hypertension) Osteoarthritis Tobacco abuse Vitamin D deficiency Surgical History No pertinent past surgical history Family History Father COPD (chronic obstructive pulmonary disease) Mother Diabetes Social History Smoking Status: Former smoker packs per day: 1; Smoking End Date: 4 years ago; Hx Alcohol Use: No Hx Substance Use: Yes Preferred Language: Uzbek Communication Ability: Effective Leaf Tier Required: No Beliefs That Will Affect Care: None marital status: Single Current Living Situation: Spouse Current Living Situation Comment: [place] Feels Safe at Home: Yes Safety Concerns: Feels Safe At This Time Assistive Devices: Glasses Review of Systems Review of Systems: As per HPI, all other systems reviewed and negative Physical Exam Physical Exam: GENERAL: Comfortable, morbidly obese, no respiratory distress, unkempt, looks older than stated age SKIN: Normal color, warm HEENT: Bespectacled, pink palpebral conjunctivae, no ptosis, dry buccal mucosa, nasal cannula in place NECK : Supple, short neck, no tenderness CHEST : Decreased breath sounds, occasional expiratory wheezes, no tenderness HEART : Irregular, no obvious murmurs ABDOMEN: Marked distention, nontender EXTREMITIES : Bilateral LE swelling, no LE tenderness, no other conspicuous deformities noted NEUROLOGIC : Coherent, no facial asymmetry, tremulous, gait and stance not assessed Results & Data Results & Data Vital Signs (Past 12 Hours) Vital Signs Temp Pulse Resp BP Pulse Ox O2 Del Method O2 Flow Rate 02/26/24 19:31 72 02/26/24 17:45 94 Room Air 4 02/26/24 17:45 37.5 C 80 22 156/109 H 87 L Nasal Cannula 4 02/26/24 17:45 Nasal Cannula 4 Laboratory Results Laboratory Results WBC 7.58 K/ul (4.8-10.8) 02/26/24 17:53 RBC 5.07 M/uL (4.70-6.10) 02/26/24 17:53 Hgb 15.3 g/dl (14.0-18.0) 02/26/24 17:53 Hct 51.8 % (42.0-52.0) 02/26/24 17:53 MCV 102.2 fL (80.0-100.0) H 02/26/24 17:53 MCH 30.2 pg (25.0-34.0) 02/26/24 17:53 MCHC 29.5 g/dL (32.0-36.0) L 02/26/24 17:53 RDW Std Deviation 54.6 fL (36.4-46.3) H 02/26/24 17:53 RDW Coeff of Margaret 14.5 % (11.5-14.5) 02/26/24 17:53 Plt Count 215 K/uL (130-400) 02/26/24 17:53 MPV 10.8 fL (9.4-12.4) 02/26/24 17:53 Immature Gran % (Auto) 0.4 % 02/26/24 17:53 Neut % (Auto) 74.2 % 02/26/24 17:53 Lymph % (Auto) 14.0 % 02/26/24 17:53 Dixon % (Auto) 9.0 % 02/26/24 17:53 Eos % (Auto) 1.5 % 02/26/24 17:53 Baso % (Auto) 0.9 % 02/26/24 17:53 Neut # (Auto) 5.63 K/uL (1.40-6.50) 02/26/24 17:53 Lymph # (Auto) 1.06 K/uL (1.20-3.40) L 02/26/24 17:53 Dixon # (Auto) 0.68 K/uL (0.11-0.59) H 02/26/24 17:53 Eos # (Auto) 0.11 K/uL (0.00-0.50) 02/26/24 17:53 Baso # (Auto) 0.07 K/uL (0.00-0.20) 02/26/24 17:53 Immature Gran # (Auto) 0.03 K/uL (0.01-0.20) 02/26/24 17:53 PT 11.1 Seconds (9.0-12.0) 02/26/24 19:01 INR 1.0 (0.9-1.1) 02/26/24 19:01 APTT 29 Seconds (21-31) 02/26/24 19:01 PTT Ratio 1.0 02/26/24 19:01 VBG pH 7.25 (7.36-7.41) L 02/26/24 20:02 VBG pCO2 100 mmHg (38-50) H 02/26/24 20:02 VBG pO2 30 mmHg 02/26/24 20:02 VBG HCO3 44 mmol/L 02/26/24 20:02 VBG O2 Saturation < 60.0 % 02/26/24 20:02 VBG Base Excess 12.2 mEq/L 02/26/24 20:02 Sodium 143 mmol/L (136-145) 02/26/24 19:01 Potassium 4.5 mmol/L (3.5-5.1) 02/26/24 19:01 Chloride 99 mmol/L (98-107) 02/26/24 17:53 Carbon Dioxide 39 mmol/L (21-32) H 02/26/24 17:53 Anion Gap TNP 02/26/24 17:53 BUN 16 mg/dl (6-23) 02/26/24 17:53 Creatinine 0.89 mg/dl (0.6-1.4) 02/26/24 17:53 Est Cr Clr Drug Dosing 151.5 ml/min 02/26/24 17:53 Est GFR ( Amer) 107.7 ml/min 02/26/24 17:53 Est GFR (Non-Af Amer) 92.9 ml/min 02/26/24 17:53 BUN/Creatinine Ratio 18.0 (10-20) 02/26/24 17:53 Glucose 100 mg/dl (70-99(Fasting)) H 02/26/24 17:53 Calcium 9.2 mg/dl (8.6-10.3) 02/26/24 17:53 Magnesium 2.0 mg/dl (1.7-2.4) 02/26/24 19:01 Total Bilirubin 0.6 mg/dl (0.2-1.0) 02/26/24 17:53 AST 22 U/L (13-39) 02/26/24 19:01 ALT 28 U/L (7-52) 02/26/24 17:53 Alkaline Phosphatase 82 U/L (34-104) 02/26/24 19:01 Troponin I High Sens 17.6 pg/ml (0-20) 02/26/24 17:53 B-Natriuretic Peptide 269 pg/ml (0-100) H 02/26/24 18:20 Total Protein 7.8 gm/dl (6.0-8.3) 02/26/24 17:53 Albumin 4.1 gm/dl (3.4-5.0) 02/26/24 19:01 Globulin TNP 02/26/24 17:53 Albumin/Globulin Ratio TNP 02/26/24 17:53 Adenovirus (PCR) Not Detected (NotDetected) 02/26/24 18:20 B. pertussis DNA (PCR) Not Detected (NotDetected) 02/26/24 18:20 B.parapertussis DNA PCR Not Detected (NotDetected) 02/26/24 18:20 C. pneumoniae DNA (PCR) Not Detected (NotDetected) 02/26/24 18:20 Coronavirus OC43 (PCR) Not Detected (NotDetected) 02/26/24 18:20 Coronavirus HKU1 (PCR) Not Detected (NotDetected) 02/26/24 18:20 Coronavirus 229E (PCR) Not Detected (NotDetected) 02/26/24 18:20 SARS-CoV-2 (PCR) Not Detected (NotDetected) 02/26/24 18:20 Coronavirus NL63 (PCR) Not Detected (NotDetected) 02/26/24 18:20 Human Metapneumovir PCR Not Detected (NotDetected) 02/26/24 18:20 Influenza Type A (PCR) Not Detected (NotDetected) 02/26/24 18:20 Influenza Type B (PCR) Not Detected (NotDetected) 02/26/24 18:20 M. pneumoniae (PCR) Not Detected (NotDetected) 02/26/24 18:20 Parainfluenza 1 (PCR) Not Detected (NotDetected) 02/26/24 18:20 Parainfluenza 2 (PCR) Not Detected (NotDetected) 02/26/24 18:20 Parainfluenza 3 (PCR) Not Detected (NotDetected) 02/26/24 18:20 Parainfluenza 4 (PCR) Not Detected (NotDetected) 02/26/24 18:20 RSV (PCR) Not Detected (NotDetected) 02/26/24 18:20 Entero/Rhino (PCR) Not Detected (NotDetected) 02/26/24 18:20 Impressions Chest X-Ray 02/26/24 17:57 XR chest 1V portable CLINICAL HISTORY: Dyspnea COMPARISON STUDY: Chest radiograph September 04, 2020. FINDINGS: Mild elevation of the left hemidiaphragm as slightly increased. Linear bibasilar densities favor atelectasis. Mild cardiomegaly is unchanged. There is no evidence for overt pulmonary edema. IMPRESSION: No acute cardiopulmonary findings. Stable cardiomegaly. ACT 112: Negative or not required by law. Electronically signed by: Edmundo Calero M.D. 02/26/2024 7:35 PM Diagnostic Findings EKG as per my interpretation : Rate 80, A-fib, normal axis, incomplete RBBB, no ischemia
[2024-02-26] MEDS ORDERED: traMADol HCL 50 MG TABLET PO PRN (22:40)
[2024-02-26] MEDS ORDERED: PROMETHAZINE HCL 12.5 MG in SODIUM CHLORIDE 0.9% 50 ML IV PRN (22:40)
[2024-02-26] MEDS ORDERED: DOXYCYCLINE HYCLATE 100 MG in DEXTROSE 5% MINI-B 100 ML IV STA (22:40)
[2024-02-26 22:51] LABS: Thyroid Stimulating Hormone 0.942 uIu/ml (0.300-4.500)
[2024-02-26 22:58] LABS: Base Excess ABG 11.1 mEq/L (-9-1.8); HCO3 ABG 39 mmol/L (19-24); Oxygen Saturation ABG 93.4 % (90-95); PCO2 ABG 68 mmHg (35-46); PO2 ABG 65 mmHg (80-95); pH ABG 7.37 (7.35-7.45)
[2024-02-27] LABS: Allen Test Pos (Pos)
[2024-02-27] MEDS: HEPARIN SODIUM/DEXTROSE 25,000 UNITS/500 ML BAG IV SCH (00:21)
[2024-02-27] MEDS: Heparin IV Adult Wt-Based Standard *NO* INITIAL Bolus Protocol IV STA (00:25)
[2024-02-27] MEDS: LEVALBUTEROL 1.25 MG/3 ML NEB NEB SCH (01:29)
[2024-02-27] MEDS: IPRATROPIUM BROMIDE NEB SOLN 0.02% 0.5MG/2.5ML VIAL INH SCH (01:30)
[2024-02-27 06:45] LABS: Base Excess VBG 12.5 mEq/L; HCO3 VBG 41 mmol/L; Oxygen Saturation VBG 89.7 %; PCO2 VBG 71 mmHg (38-50); PO2 VBG 57 mmHg; pH VBG 7.37 (7.36-7.41)
--- NOTE | 2024-02-27 07:01 | Ultrasound Report ---
BILATERAL LOWER EXTREMITY VENOUS DOPPLER HISTORY: Acute pain and swelling of the lower legs leg swelling COMPARISON STUDY: 09/04/2020. FINDINGS: 1 exam secondary to patient body habitus and subcutaneous edema. There is normal compressib ility, flow, and augmentation within the bilateral lower extremity deep venous systems. IMPRESSION: No DVT within the right or left lower extremity. ACT 112: Negative or not required by law. Electronically signed by: Raghavendra Caballero M.D. 02/27/2024 7:00 AM
[2024-02-27] MEDS: PERFLUTREN LIPID MICROSPHERE (DEFINITY) IV ONE (07:11)
[2024-02-27 07:23] LABS: ANTI-Xa, UFH(UnfractionatedHep 0.43 IU/ml (0.3-0.7)
[2024-02-27 07:54] LABS: Estimated Average Glucose 114 mg/dl; Hemoglobin A1C 5.6 % (4.5-5.6)
[2024-02-27] MEDS: predniSONE 20 MG TAB PO SCH (08:01)
[2024-02-27] MEDS: METOPROLOL TARTRATE 25 MG TAB PO SCH (08:01)
[2024-02-27] MEDS: FUROSEMIDE 40 MG/4 ML VIAL IV SCH (08:01)
[2024-02-27] MEDS: lisinopril 20 MG TAB PO SCH (08:02)
[2024-02-27] MEDS: DOXYCYCLINE HYCLATE 100 MG CAP PO SCH (08:02)
[2024-02-27] MEDS: ASPIRIN 81 MG ECTAB PO SCH (08:02)
[2024-02-27] MEDS ORDERED: DOXYCYCLINE HYCLATE 100 MG CAP PO SCH (09:00)
[2024-02-27] MEDS ORDERED: FLUTICASONE FUROATE 200MCG 14 PUFFS/INHALER INH SCH (09:00)
[2024-02-27] MEDS: guaiFENesin 600 MG TABCR PO SCH (09:42)
--- NOTE | 2024-02-27 10:46 | Electrocardiogram Report ---
Test Reason : Blood Pressure : / mmHG Vent. Rate : 083 BPM Atrial Rate : 000 BPM P-R Int : 000 ms QRS Dur : 100 ms QT Int : 288 ms P-R-T Axes : 000 021 264 degrees QTc Int : 338 ms Atrial fibrillation Incomplete right bundle branch block Nonspecific ST and T wave abnormality Abnormal ECG Confirmed by Marcos Toribio ([id number]) on 02/27/2024 10:45:34 AM Referred By: REFERRED SELF Confirmed By:Marcos Toribio
--- NOTE | 2024-02-27 12:37 | Cardiology Consultation ---
Date of Consultation February 27, 2024 Assessment & Plan (1) Respiratory failure with hypoxia and hypercapnia: (2) Acute exacerbation of chronic obstructive pulmonary disease: (3) Right heart failure with reduced right ventricular function: (4) Atrial fibrillation with controlled ventricular rate: (5) HTN (hypertension): Plan Assessment: Pleasant 58 year old male with known Pickwickian syndrome, COPD, Chronic Right sided HF and Atrial fibrillation (presumed persistent) that presented with several weeks of worsening dyspnea, hypoxia and lower extremity edema. Plan: 1. Respiratory failure with hypoxia 2. Acute COPD exacerbation 3. Right heart failure with reduced Right ventricular function -Hypoxia multifactorial given patients chronic respiratory history. -BNP with modest elevation -Echocardiogram suggest LVEF 50-55%, severely dilated right atrium and right ventricle, Moderately reduced RV systolic function, mild TR with pressures of 50-60mmHg -O2 sats have improved to 90% on 4Lpm which is patient's baseline home O2 -Continues with modest overload. -Continue with Lasix 40mg IV BID, with close monitoring of renal function, serum electrolytes, daily weights and strict I&O -2G sodium restriction -Goal serum mag >2.0 and serum K 4.0 -Continue Metoprolol tartrate, and lisinopril as part of HF regimen. -CHF teaching -Continued management of COPD exacerbation by primary team. 4. Atrial fibrillation -Presumed persistent, although there has been no formal OP cardiology follow up in 4 years. -Continue to monitor on telemetry, rate controlled. -Continue Metoprolol tartrate. -BP well controlled. -Currently on heparin gtt -discussed pathophysiology of A-fib with Patient and risk for thromboembolic event. Recommendation for patient to be transitioned over to PO anticoagulation with either eliquis or xarelto (request case management to look into cost affordibility) prior to discharge. -[id number] score of 2 with recommendation for oral AC therapy (CHF and HTN) 5. HTN -Controlled. -Continue Furosemide, metoprolol and Lisinopril. Case has been discussed with Dr. Aguillon. Further recommendations regarding plan of care as per his assessment. I spent a total of 40 minutes on the date of service in preparation, delivery, documentation of the care provided to the patient excluding any time spent in the performance of separately billed services. SAMY Cates [facility] Cardiology [facility] Supervising Physician Co-Signing Physician Notes Patient was seen and personally examined. Full assessment and plan as outlined above. Care and management discussed with advanced provider and personally endorsed Patient is a 58-year-old male with morbid obesity and pickwickian hypoventilation syndrome presenting with hypoxic and hypercapnic respiratory failure, newly observed atrial fibrillation. Exam consistent with acute on chronic right heart failure with increased abdominal girth and lower extremity edema. Atrial fibrillation rates controlled with low-dose beta-jackie, anticoagulation initiated with heparin. Will need long-term oral anticoagulation with poor likelihood of return to sinus rhythm IV diuretics to manage volume overload, resume oral spironolactone Will need long-term management of his hypoventilation syndrome including retrial or initiation of positive pressure breathing apparatus specially given significant hypercapnia. Should continue oxygen CHF instructions to be reviewed with patient Echocardiogram with low normal LV systolic function but significant RV enlargement and hypokinesis, elevated pulmonary pressure consistent with cor pulmonale I spent a total of 30 minutes additional on the date of service in preparation, delivery, and documentation of the care provided to this patient, excluding any time spent in the performance of separately billed services. History of Present Illness Reason for Consultation: Hypoxia Requesting Physician: Socorro roman Attending Physician: Leo Robles MD History of Present Illness HPI: patient is a 58 year old male with a past medical history significant for Pickwickian syndrome, morbid obesity, Cor pulmonale with severe reduced RV systolic function, HTN, LV diastolic dysfunction and COPD that presented to the ED with 2-3 weeks or worsening dyspnea and low pulse oximetry readings. patient states that he is chronically short of breath and wears supplemental O2 4LPM via nasal cannula. He denies any use of CPAP at night. He states that over the past few weeks he has become more notably short of breath with increased lower extremity edema. Denies any significant medication changes and no significant dietary changes although endorses that they a have been eating out a lot more so he knows that his salt intake has been much higher. REview of EKG on admission demonstrates A-fib with an incomplete Right BBB, non- specific ST-T wave abnormality. Review of telemetry continues to demonstrate A-fib, rate controlled. He has followed with Dr. Duffy in the past, but has been lost to cardiology care for nearly 4 years. Allergies Allergy/AdvReac Type Severity Reaction Status Date / Time No Known Allergies Allergy Verified 09/04/20 16:40 Home Medications Medication Instructions Recorded Confirmed Type albuterol sulfate 90 mcg/actuation 2 puff inhalation QID 09/04/20 02/26/24 History aerosol inhaler aspirin 81 mg tablet,delayed 81 mg PO DAILY 09/04/20 02/26/24 History release fluticasone propionate 110 1 puff inhalation Q12H 09/04/20 02/26/24 History mcg/actuation HFA aerosol inhaler hydrocodone 5 mg-acetaminophen 325 1 tab PO Q6H PRN Pain 09/04/20 02/26/24 History mg tablet lisinopril 40 mg tablet 20 mg PO BID 09/04/20 02/26/24 History Oxygen Home E0424 #1 ea 09/10/20 02/26/24 Rx spironolactone 25 mg tablet 12.5 mg (1/2 x 25 mg) PO DAILY #30 09/10/20 02/26/24 Rx tabs torsemide 20 mg tablet 20 mg PO UD #60 tabs 09/10/20 02/26/24 Rx acetaminophen 500 mg tablet 1,000 mg PO Q6H PRN Pain 02/26/24 02/26/24 History (Tylenol Extra Strength) Patient History Medical History COPD (chronic obstructive pulmonary disease) HTN (hypertension) Osteoarthritis Tobacco abuse Vitamin D deficiency Surgical History No pertinent past surgical history Family History Father COPD (chronic obstructive pulmonary disease) Mother Diabetes Social History Smoking Status: Former smoker packs per day: 1; Smoking End Date: 4 years ago; Hx Alcohol Use: No Hx Substance Use: Yes Preferred Language: Divehi Communication Ability: Effective Distribution Estimator Required: No Beliefs That Will Affect Care: None marital status: Single Current Living Situation: Spouse Current Living Situation Comment: trailer Feels Safe at Home: Yes Safety Concerns: Feels Safe At This Time Assistive Devices: Cane and Oxygen - Continuous Review of Systems Review of Systems: All systems reviewed & are unremarkable except as noted in HPI & below Physical Exam Constitutional: well developed, well nourished and + morbidly obese; no acute distress and not ill appearing Neck: normal visual inspection and trachea midline Respiratory: normal respiratory effort and + respiratory distress Auscultation: + diminished lung sounds (bilateral bases ); no crackles, no rales, no rhonchi and no wheezes Cardiovascular: Rate/Rhythm: + irregularly irregular Heart Sounds: normal S1 and normal S2; no murmur Vessels: no JVD Extremities: + edema (+1 BLE) Skin: no rashes, warm and dry + excoriations (fungal/yeast excoriation noted under axilla/breast region) Psychiatric: A+Ox3, euthymic affect Results & Data Vital Signs (Past 12 Hours) Vital Signs Temp Pulse Pulse Resp BP Pulse Ox O2 Del Method 02/27/24 11:04 36.3 C L 78 20 126/77 90 Nasal Cannula 02/27/24 07:24 36.7 C 79 18 148/79 H 92 Nebulizer 02/27/24 07:23 18 Nasal Cannula 02/27/24 03:00 36.6 C 75 20 128/73 92 BiPAP 02/27/24 01:43 84 20 96 02/27/24 01:32 82 20 96 BiPAP O2 Flow Rate FiO2 02/27/24 11:04 02/27/24 07:24 02/27/24 07:23 3.5 02/27/24 03:00 02/27/24 01:43 50 02/27/24 01:32 50 Laboratory Results Cardiac Enzymes 02/26/24 02/26/24 02/26/24 Range/Units 17:53 18:20 19:01 AST TNP 22 Troponin I High Sens 17.6 (0-20) pg/ml B-Natriuretic Peptide 269 H (0-100) pg/ml Coagulation 02/26/24 02/26/24 02/26/24 Range/Units 17:53 18:20 19:01 PT Cancelled 11.1 APTT Cancelled 29 B-Natriuretic Peptide 269 H (0-100) pg/ml CBC 02/26/24 Range/Units 17:53 WBC 7.58 (4.8-10.8) K/ul RBC 5.07 (4.70-6.10) M/uL Hgb 15.3 (14.0-18.0) g/dl Hct 51.8 (42.0-52.0) % Plt Count 215 (130-400) K/uL Neut # (Auto) 5.63 (1.40-6.50) K/uL Lymph # (Auto) 1.06 L (1.20-3.40) K/uL Swift # (Auto) 0.68 H (0.11-0.59) K/uL Eos # (Auto) 0.11 (0.00-0.50) K/uL Baso # (Auto) 0.07 (0.00-0.20) K/uL Comprehensive Metabolic Panel 02/26/24 02/26/24 Range/Units 17:53 19:01 Sodium TNP 143 Potassium TNP 4.5 Chloride 99 (98-107) mmol/L Carbon Dioxide 39 H (21-32) mmol/L BUN 16 (6-23) mg/dl Creatinine 0.89 (0.6-1.4) mg/dl Glucose 100 H (70-99(Fasting)) mg/dl Calcium 9.2 (8.6-10.3) mg/dl AST TNP 22 ALT 28 (7-52) U/L Alkaline Phosphatase TNP 82 Total Protein 7.8 (6.0-8.3) gm/dl Albumin TNP 4.1 Intake and Output 02/26/24 02/27/24 02/27/24 22:59 06:59 14:59 Intake Total 478.133 / 478.133 Balance 478.133 / 478.133 Intake: IV 478.133 / 478.133 Heparin Sodium/Dextrose 25,000 478.133 / 478.133 units In 500 ml @ 2,200 UNITS/ HR 44 mls/hr IV .[id number] [facility] Rx #:[id number] Other: Other Intake Source sips Weight 190.5 kg 190.5 kg Weight Measurement Method [facility]
--- NOTE | 2024-02-27 14:44 | Hospitalist Progress Note ---
Date of Service February 27, 2024 Assessment & Plan (1) Respiratory failure with hypoxia and hypercapnia: (2) Right heart failure with reduced right ventricular function: (3) CHF (congestive heart failure): (4) Atrial fibrillation with controlled ventricular rate: (5) COPD (chronic obstructive pulmonary disease): Plan 58-year-old male with morbid obesity/pickwickian syndrome, COPD, chronic right- sided heart failure, atrial fibrillation who presented to ED with worsening lina rtness of breath, hypoxia and leg swelling. Also had cough over the past week. Acute on chronic right-sided CHF -Echo with normal LV systolic function with significant RV enlargement and hypokinesis, elevated pulmonary pressures consistent with cor pulmonale -Continue IV Lasix, monitor volume status, monitor ROBERTO's, daily weight -Continue Aldactone COPD with mild exacerbation- improved with initial management. continue prednisone, doxy, nebs. Sputum clx if able to produce. Continue IS/flutter valve Pickwickian syndrome/OHS with chronic respiratory failure with hypoxia and hypercarbia -Already back on full dose of oxygen which is his home oxygen requirement. Will do two-step oxygen evaluation prior to discharge -Labs reviewed. Noted hypercarbia and elevated CO2. Recommended patient to get sleep study as outpatient Atrial fibrillation-continue Lopressor, on heparin drip. CHADS2 VASc of 2. Per cardiology, will need long-term oral anticoagulation with poor likelihood to return to sinus rhythm. Morbid obesity- BMI 58. weight loss recommended. F/u with PCP as OP with referral to weight management clinic. HTN- BP stable. On lisinopril, lasix, Lopressor. DVT ppx- currently on heparin drip Dispo- pending medical stability Time spent- approx 50 mins Admission and Anticipated Discharge Date Admission Date: February 26, 2024 Subjective Patient was seen and examined at bedside. He feels better since admission. Breathing has improved. He is wondering if he could go home today. He is concerned about his weight gain and was wondering if he can go to weight rehab center. I did recommend him to follow-up with his PCP with referral to weight management clinic. Review of Systems Review of Systems: All systems reviewed & are unremarkable except as noted in Subjective Physical Exam Physical Exam: General: Morbidly obese male, lying comfortably in bed, not in distress, on NC HEENT: MIA, MMM Chest: Decreased breath sounds bilaterally CVS: Irregular, normal heart sounds Abdomen: Soft, non tender, distended, normal bowel sounds Neuro: Awake, alert, oriented, conversing well, non focal Extremities: Lower extremity edema Results & Data Results & Data Vital Signs (Past 12 Hours) Vital Signs Temp Pulse Resp BP Pulse Ox O2 Del Method O2 Flow Rate 02/27/24 13:20 84 20 90 Nasal Cannula 4 02/27/24 11:04 36.3 C L 78 20 126/77 90 Nasal Cannula 02/27/24 07:24 36.7 C 79 18 148/79 H 92 Nebulizer 02/27/24 07:23 18 Nasal Cannula 3.5 02/27/24 03:00 36.6 C 75 20 128/73 92 BiPAP Laboratory Results Short CBC 02/26/24 Range/Units 17:53 WBC 7.58 (4.8-10.8) K/ul Hgb 15.3 (14.0-18.0) g/dl Hct 51.8 (42.0-52.0) % Plt Count 215 (130-400) K/uL BMP 02/26/24 02/26/24 17:53 19:01 Sodium TNP 143 Potassium TNP 4.5 Chloride 99 Carbon Dioxide 39 H BUN 16 Creatinine 0.89 Glucose 100 H Calcium 9.2 Liver Function 02/26/24 02/26/24 Range/Units 17:53 19:01 Total Bilirubin 0.6 (0.2-1.0) mg/dl AST TNP 22 ALT 28 (7-52) U/L Alkaline Phosphatase TNP 82 Albumin TNP 4.1
[2024-02-27] MEDS: ACETAMINOPHEN 325 MG TAB PO PRN (16:21)
[2024-02-27] MEDS: FORMOTEROL 20 MCG/2 ML VIAL NEB SCH (19:34)
[2024-02-27] MEDS: BUDESONIDE 0.5 MG/2 ML VIAL (PULMICORT) NEB SCH (19:34)
[2024-02-27] MEDS: APIXABAN 5 MG TABLET PO SCH (22:00)
[2024-02-28 07:17] LABS: Hematocrit (blood only) 47.9 % (42.0-52.0); Hemoglobin 14.6 g/dl (14.0-18.0); Mean Corpuscular Hemoglobin 30.2 pg (25.0-34.0); Mean Corpuscular Hgb Conc 30.5 g/dL (32.0-36.0); Mean Corpuscular Volume 99.2 fL (80.0-100.0); Mean Platelet Volume 9.6 fL (9.4-12.4); Platelet Count 173 K/uL (130-400); RDW Coefficient of Variation 14.5 % (11.5-14.5); RDW Standard Deviation 52.7 fL (36.4-46.3); Red Blood Count 4.83 M/uL (4.70-6.10); White Blood Count 7.89 K/ul (4.8-10.8)
[2024-02-28 07:38] LABS: BUN Creatinine Ratio 27.5 (10-20); Calcium 9.5 mg/dl (8.6-10.3); Creatinine Clr Calc Pharmacy 148.1 ml/min; Est GFR (African American) 105.8 ml/min; Est GFR (Non-African American) 91.3 ml/min; Magnesium 1.9 mg/dl (1.7-2.4)
--- NOTE | 2024-02-28 11:48 | Cardiology Progress Note ---
Date of Service February 28, 2024 Assessment & Plan (1) Respiratory failure with hypoxia and hypercapnia: (2) Acute exacerbation of chronic obstructive pulmonary disease: (3) Right heart failure with reduced right ventricular function: (4) Atrial fibrillation with controlled ventricular rate: (5) HTN (hypertension): Plan Assessment: Pleasant 58 year old male with known Pickwickian syndrome, COPD, Chronic Right sided HF and Atrial fibrillation (presumed persistent) that pres ented with several weeks of worsening dyspnea, hypoxia and lower extremity edema. Plan: 1. Respiratory failure with hypoxia 2. Acute COPD exacerbation 3. Right heart failure with reduced Right ventricular function -Hypoxia multifactorial given patients chronic respiratory history. Patient demonstrates improvement today. -BNP with modest elevation on admission. -Echocardiogram suggest LVEF 50-55%, severely dilated right atrium and right ventricle, Moderately reduced RV systolic function, mild TR with pressures of 50-60mmHg -O2 sats have improved to 90% on 4Lpm which is patient's baseline home O2. Patient would benefit from CPAP or likely Bipap at home given his RV systolic dysfunction;however, patient admits he would likely be non-compliant -Continues with mild volume overload. -Continue with Lasix 40mg IV BID today and likely transition to PO Lasix tomorrow, with close monitoring of renal function, serum electrolytes, daily weights and strict I&O -2G sodium restriction -Goal serum mag >2.0 and serum K 4.0 -Continue Metoprolol tartrate, and lisinopril as part of HF regimen. -CHF teaching -Continued management of COPD exacerbation by primary team. 4. Atrial fibrillation -Presumed persistent, although there has been no formal OP cardiology follow up in 4 years. -Continue to monitor on telemetry, rate controlled. -Continue Metoprolol tartrate. -BP well controlled. -Heparin gtt discontinued as patient was transitioned over to Eliquis 5mg PO BID -discussed pathophysiology of A-fib with Patient and risk for thromboembolic event. -[id number] score of 2 with recommendation for oral AC therapy (CHF and HTN) 5. HTN -Controlled. -Continue Furosemide, metoprolol and Lisinopril. Case has been discussed with Dr. Blair. Further recommendations regarding plan of care as per his assessment. I spent a total of 30 minutes on the date of service in preparation, delivery, documentation of the care provided to the patient excluding any time spent in the performance of separately billed services. SAMY Cates [facility] Cardiology [facility] Admission and Anticipated Discharge Date Admission Date: February 26, 2024 Supervising Physician Co-Signing Physician Notes Attending attestation: Case reviewed with the advanced practitioner. I have personally performed a history and physical examination on the patient. I have reviewed the advanced practitioner's documentation on the date of service referenced in note, and I agree with, and take responsibility for the plan of care. Plan as noted. Tolerating metoprolol and Eliquis for atrial fibrillation. Furosemide 40 mg IV twice daily, will reassess laboratories and clinical status tomorrow prior to considering transition to oral diuretic. 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 I spent a total of 20 minutes coordinating, documenting, and providing care for this patient excluding time spent in the performance of separately billed services or time spent by another provider. Oni Blair DO Subjective 02/28/2024: Patient seen and examined in follow up today. Patient reports feeling continued improvement. Denies any chest pain, pressure or palpitations. Reports improvement in his breathing. Remains on 4L o2 via nasal cannula. This is his baseline need at home. Reports decrease in overall leg swelling as well. Labs, vitals, diagnostics, telemetry and documentation reviewed. Review of telemetry demonstrates A-fib with PVC rate 60-90's Physical Exam Constitutional: well developed, well nourished and + morbidly obese; no acute distress and not ill appearing Neck: normal visual inspection and trachea midline Respiratory: normal respiratory effort and + respiratory distress Auscultation: + diminished lung sounds (bilateral bases ) and + wheezes (faint exp. wheezes ); no crackles, no rales and no rhonchi Cardiovascular: Rate/Rhythm: + irregularly irregular Heart Sounds: normal S1 and normal S2; no murmur Vessels: no JVD Extremities: + edema (+1 BLE) Skin: no rashes, warm and dry + excoriations (fungal/yeast excoriation noted under axilla/breast region) Psychiatric: A+Ox3, euthymic affect Results & Data Vital Signs (Past 12 Hours) Vital Signs Temp Pulse Resp BP BP Pulse Ox Pulse Ox 02/28/24 11:32 36.3 C L 57 L 19 127/69 93 02/28/24 08:41 36.5 C 79 19 121/73 89 L 02/28/24 07:26 62 16 94 02/28/24 03:17 36.7 C 78 18 148/77 H 94 02/28/24 00:09 93 02/28/24 00:00 92 O2 Del Method O2 Del Method O2 Flow Rate O2 Flow Rate 02/28/24 11:32 Nasal Cannula 02/28/24 08:41 Nasal Cannula 02/28/24 07:26 Nasal Cannula 6 02/28/24 03:17 Room Air 02/28/24 00:09 Nasal Cannula 02/28/24 00:00 Nasal Cannula 4 Laboratory Results CBC 02/28/24 Range/Units 06:41 WBC 7.89 (4.8-10.8) K/ul RBC 4.83 (4.70-6.10) M/uL Hgb 14.6 (14.0-18.0) g/dl Hct 47.9 (42.0-52.0) % Plt Count 173 (130-400) K/uL Comprehensive Metabolic Panel 02/28/24 Range/Units 06:41 Sodium 139 (136-145) mmol/L Potassium 4.0 (3.5-5.1) mmol/L Chloride 95 L (98-107) mmol/L Carbon Dioxide 38 H (21-32) mmol/L BUN 25 H (6-23) mg/dl Creatinine 0.91 (0.6-1.4) mg/dl Glucose 89 (70-99(Fasting)) mg/dl Calcium 9.5 (8.6-10.3) mg/dl Intake and Output 02/27/24 02/28/24 02/28/24 22:59 06:59 14:59 Intake Total 600 / 1418.133 Output Total 0 / 400 Balance 600 / 1018.133 0 / 1018.133 Intake: IV 500 / 978.133 Heparin Sodium/Dextrose 25,000 500 / 978.133 units In 500 ml @ 2,200 UNITS/ HR 44 mls/hr IV .[id number] [facility] Rx #:[id number] Oral 100 / 440 Output: # Bowel Movements 0 / 0 Other: # Unmeasured Voids 1 2 Weight 190.2 kg Weight Measurement Method Built in [facility]
--- NOTE | 2024-02-28 15:48 | Hospitalist Progress Note ---
Date of Service February 28, 2024 Assessment & Plan (1) Respiratory failure with hypoxia and hypercapnia: (2) Right heart failure with reduced right ventricular function: (3) CHF (congestive heart failure): (4) Atrial fibrillation with controlled ventricular rate: (5) COPD (chronic obstructive pulmonary disease): Plan 58-year-old male with morbid obesity/pickwickian syndrome, COPD, chronic right- sided heart failure, atrial fibrillation who presented to ED with worsening lina rtness of breath, hypoxia and leg swelling. Also had cough over the past week. Acute on chronic right-sided CHF -Echo with normal LV systolic function with significant RV enlargement and hypokinesis, elevated pulmonary pressures consistent with cor pulmonale -Continue IV Lasix, monitor volume status, monitor I and O's, daily weight. Continue Aldactone -Likely switch to po tomorrow. Cardiology managing COPD with mild exacerbation- improved with initial management. continue prednisone, doxy, nebs. Follow final sputum clx results. Continue IS/flutter valve Pickwickian syndrome/OHS with chronic respiratory failure with hypoxia and hypercarbia -On 4 L NC which is home requirement. Will do two-step oxygen evaluation prior to discharge [facility] tomorrow -Labs reviewed. Noted hypercarbia and elevated CO2. Recommended patient to get sleep study as outpatient Atrial fibrillation-continue Lopressor, on heparin drip. CHADS2 VASc of 2. Per cardiology, will need long-term oral anticoagulation with poor likelihood to return to sinus rhythm. Started on eliquis. Pittman check tomorrow. Morbid obesity- BMI 58. weight loss recommended. F/u with PCP as OP with referral to weight management clinic. HTN- BP stable. On lisinopril, lasix, Lopressor. DVT ppx- eliquis Dispo- on iv lasix for volume optimization. Will need 2 step O2 eval and pittman check for eliquis. Anticipate discharge home when stable. Time spent- approx 35 mins Admission and Anticipated Discharge Date Admission Date: February 26, 2024 Subjective Patient was seen and examined at bedside. He feels better. Swelling is improving. SOB is improved. No fever, chills, CP, SOB, N/V. Review of Systems Review of Systems: All systems reviewed & are unremarkable except as noted in Subjective Physical Exam Physical Exam: General: Morbidly obese male, lying comfortably in bed, not in distress, on NC HEENT: MIA, MMM Chest: Decreased breath sounds bilaterally CVS: Irregular, normal heart sounds Abdomen: Soft, non tender, distended, normal bowel sounds Neuro: Awake, alert, oriented, conversing well, non focal Extremities: Lower extremity edema improving Results & Data Results & Data Vital Signs (Past 12 Hours) Vital Signs Temp Pulse Pulse Resp BP BP Pulse Ox 02/28/24 15:22 74 02/28/24 12:49 87 20 91 02/28/24 11:32 36.3 C L 57 L 19 127/69 93 02/28/24 08:41 36.5 C 79 19 121/73 89 L 02/28/24 08:00 02/28/24 08:00 02/28/24 07:26 62 16 94 02/28/24 07:00 60 Pulse Ox O2 Del Method O2 Del Method O2 Flow Rate O2 Flow Rate 02/28/24 15:22 02/28/24 12:49 Nasal Cannula 4 02/28/24 11:32 Nasal Cannula 02/28/24 08:41 Nasal Cannula 02/28/24 08:00 93 Nasal Cannula 4 02/28/24 08:00 Nasal Cannula 4 02/28/24 07:26 Nasal Cannula 6 02/28/24 07:00 Laboratory Results Short CBC 02/28/24 Range/Units 06:41 WBC 7.89 (4.8-10.8) K/ul Hgb 14.6 (14.0-18.0) g/dl Hct 47.9 (42.0-52.0) % Plt Count 173 (130-400) K/uL BMP 02/28/24 06:41 Sodium 139 Potassium 4.0 Chloride 95 L Carbon Dioxide 38 H BUN 25 H Creatinine 0.91 Glucose 89 Calcium 9.5
[2024-02-29 07:23] LABS: Calcium 9.3 mg/dl (8.6-10.3); Creatinine Clr Calc Pharmacy 133.4 ml/min; Est GFR (African American) 94.4 ml/min; Est GFR (Non-African American) 81.4 ml/min; Magnesium 1.9 mg/dl (1.7-2.4); Potassium 3.8 mmol/L (3.5-5.1)
[2024-02-29 07:24] LABS: Hematocrit (blood only) 47.8 % (42.0-52.0); Hemoglobin 14.4 g/dl (14.0-18.0); Mean Corpuscular Hemoglobin 30.1 pg (25.0-34.0); Mean Corpuscular Hgb Conc 30.1 g/dL (32.0-36.0); Mean Corpuscular Volume 99.8 fL (80.0-100.0); Mean Platelet Volume 9.8 fL (9.4-12.4); Platelet Count 199 K/uL (130-400); RDW Coefficient of Variation 14.5 % (11.5-14.5); RDW Standard Deviation 53.1 fL (36.4-46.3); Red Blood Count 4.79 M/uL (4.70-6.10); White Blood Count 9.05 K/ul (4.8-10.8)
[2024-02-29] MEDS: MAGNESIUM SULFATE / D5W 1 GM/100 ML BAG IV ONE (09:04)
[2024-02-29] MEDS: POTASSIUM CHLORIDE CRTAB 20 MEQ TABCR PO STA (09:04)
--- NOTE | 2024-02-29 12:55 | Hospitalist Progress Note ---
Date of Service February 29, 2024 Assessment & Plan (1) Respiratory failure with hypoxia and hypercapnia: (2) Right heart failure with reduced right ventricular function: (3) CHF (congestive heart failure): (4) Atrial fibrillation with controlled ventricular rate: (5) COPD (chronic obstructive pulmonary disease): Plan Mr. Lewis is a 58-year-old male with morbid obesity/pickwickian syndrome, COPD, chronic right-sided heart failure, atrial fibrillation who presented to ED with worsening shortness of breath, hypoxia and leg swelling on 02/25 and treated for acute on chronic right sided heart failure. #Acute on chronic right-sided CHF #Pickwickian syndrome/OHS with chronic respiratory failure with hypoxia and hypercarbia -On 4 L NC which is home requirement. -Echocardiogram suggest LVEF 50-55%, severely dilated right atrium and right ventricle, Moderately reduced RV systolic function, mild TR with pressures of 50-60mmHg -monitor volume status, monitor I and O's, daily weight. Continue Aldactone -Transitioned to Torsemide 40mg daily tomorrow morning -Replace lytes prn Labs in am Will recommend formal polysomnography however, patient has indicated likely noncompliance with NIV #Persistent Atrial fibrillation -Continue to monitor on telemetry, rate controlled. -Continue Metoprolol tartrate. -transitioned over to Eliquis 5mg PO BID #HTN -Controlled. -Continue metoprolol, Lisinopril, Torsemide #COPD with mild exacerbation- improved with initial management. continue prednisone (3/5), doxy, nebs. Follow final sputum clx results: moderate amna. Continue IS/flutter valve #Morbid obesity- BMI 58. weight loss recommended. F/u with PCP as OP with r delfinaal to weight management clinic. DVT ppx- eliquis Dispo- Will need 2 step O2 eval and pittman check for eliquis. Anticipate discharge home when stable. Time spent- approx 35 mins Admission and Anticipated Discharge Date Admission Date: February 26, 2024 Subjective No acute events overnight Reports feeling much improved overall Endorses constipation Denies any new concerns, eating well, and ambulating without difficulty Physical Exam Constitutional: WD/WN, vitals as above appears comfortable on exam Respiratory: difficult to appreciate 2/2 habitus Cardiovascular: irregularly irregular Results & Data Results & Data Vital Signs (Past 12 Hours) Vital Signs Temp Pulse Pulse Resp BP BP Pulse Ox 02/29/24 11:14 36.5 C 59 L 18 102/58 L 93 02/29/24 07:50 36.3 C L 66 19 134/81 91 02/29/24 07:00 112 H 02/29/24 07:00 80 18 92 02/29/24 03:18 36.3 C L 59 L 16 104/55 L 92 02/29/24 02:26 63 18 93 O2 Del Method O2 Flow Rate 02/29/24 11:14 Nasal Cannula 4 02/29/24 07:50 Nasal Cannula 4 02/29/24 07:00 02/29/24 07:00 Nasal Cannula 4 02/29/24 03:18 Nasal Cannula 4.0 02/29/24 02:26 Nasal Cannula 4 Laboratory Results Short CBC 02/29/24 Range/Units 06:30 WBC 9.05 (4.8-10.8) K/ul Hgb 14.4 (14.0-18.0) g/dl Hct 47.8 (42.0-52.0) % Plt Count 199 (130-400) K/uL BMP 02/29/24 06:30 Sodium 139 Potassium 3.8 Chloride 94 L Carbon Dioxide 39 H BUN 29 H Creatinine 1.00 Glucose 91 Calcium 9.3 Medications Administered Home Medications Medication Instructions Recorded Confirmed Last Taken albuterol sulfate 90 mcg/actuation 2 puff inhalation QID 09/04/20 02/26/24 Unknown aerosol inhaler aspirin 81 mg tablet,delayed 81 mg PO DAILY 09/04/20 02/26/24 Unknown release fluticasone propionate 110 1 puff inhalation Q12H 09/04/20 02/26/24 09/04/20 mcg/actuation HFA aerosol inhaler AM DOSE hydrocodone 5 mg-acetaminophen 325 1 tab PO Q6H PRN Pain 09/04/20 02/26/24 Unknown mg tablet lisinopril 40 mg tablet 20 mg PO BID 09/04/20 02/26/24 09/04/20 AM DOSE Oxygen Home [id number] #1 ea 09/10/20 02/26/24 Unknown spironolactone 25 mg tablet 12.5 mg (1/2 x 25 mg) PO DAILY #30 09/10/20 02/26/24 Unknown tabs torsemide 20 mg tablet 20 mg PO UD #60 tabs 11/04/20 04/21/24 Unknown acetaminophen 500 mg tablet 1,000 mg PO Q6H PRN Pain 02/26/24 02/26/24 Unknown (Tylenol Extra Strength) Active Medications Generic Name Dose Route Start Last Admin Trade Name Freq PRN Reason Stop Dose Admin Acetaminophen 650 mg 02/26/24 22:40 02/29/24 02:12 Acetaminophen 325 Mg Tab PO 03/27/24 22:39 650 mg QID PRN Administration pain/fever Apixaban 5 mg 02/27/24 21:00 02/29/24 09:04 Apixaban 5 Mg Tablet PO 03/28/24 20:59 5 mg BID ARMANI Administration Aspirin 81 mg 02/27/24 09:00 02/29/24 09:04 Aspirin 81 Mg Ectab PO 03/28/24 08:59 81 mg DAILY ARMANI Administration Budesonide 0.5 mg 02/27/24 19:00 02/29/24 07:00 Budesonide 0.5 Mg/2 Ml Vial (Pulmicort) [facility] 03/28/24 18:59 0.5 mg BIDR ARMANI Administration Doxycycline Hyclate 100 mg 02/27/24 09:00 02/29/24 09:04 Doxycycline Hyclate 100 Mg Cap PO 03/05/24 08:59 100 mg BID ARMANI Administration Formoterol Fumarate 20 mcg 02/27/24 19:00 02/29/24 07:00 Formoterol 20 Mcg/2 Ml Vial NEB 03/28/24 18:59 20 mcg BIDR ARMANI Administration Guaifenesin 600 mg 02/27/24 09:00 02/29/24 09:05 Guaifenesin 600 Mg Tabcr PO 03/28/24 08:59 600 mg Q12 ARMANI Administration Ipratropium Atco 0.5 mg 02/27/24 01:00 02/29/24 13:23 Ipratropium Atco Neb Soln 0.02% 0.5mg/2.5ml Vial INH 03/28/24 00:59 0.5 mg Q6R ARMANI Administration Levalbuterol HCl 1.25 mg 02/27/24 01:00 02/29/24 13:23 Levalbuterol 1.25 Mg/3 Ml Neb [facility] 03/28/24 00:59 1.25 mg Q6R ARMANI Administration Lisinopril 20 mg 02/27/24 09:00 02/29/24 09:04 Lisinopril 20 Mg Tab PO 03/28/24 08:59 20 mg BID ARMANI Administration Metoprolol Tartrate 12.5 mg 02/27/24 09:00 02/29/24 09:04 Metoprolol Tartrate 25 Mg Tab PO 03/28/24 08:59 12.5 mg BID ARMANI Administration Prednisone 40 mg 02/27/24 09:00 02/29/24 09:04 Prednisone 20 Mg Tab PO 03/02/24 08:59 40 mg DAILY ARMANI Administration
[2024-02-29] MEDS: bisacodyL 5 MG TABEC PO ONE (13:50)
--- NOTE | 2024-02-29 17:03 | Cardiology Progress Note ---
Date of Service February 29, 2024 Assessment & Plan (1) Respiratory failure with hypoxia and hypercapnia: (2) Acute exacerbation of chronic obstructive pulmonary disease: (3) Right heart failure with reduced right ventricular function: (4) Atrial fibrillation with controlled ventricular rate: (5) HTN (hypertension): Plan Assessment: Pleasant 58 year old male with known Pickwickian syndrome, COPD, Chronic Right sided HF and Atrial fibrillation (presumed persistent) that pres ented with several weeks of worsening dyspnea, hypoxia and lower extremity edema. Plan: 1. Respiratory failure with hypoxia 2. Acute COPD exacerbation 3. Right heart failure with reduced Right ventricular function -Hypoxia multifactorial given patients chronic respiratory history. Patient demonstrates improvement today. -BNP with modest elevation on admission. -Echocardiogram suggest LVEF 50-55%, severely dilated right atrium and right ventricle, Moderately reduced RV systolic function, mild TR with pressures of 50-60mmHg -O2 sats have improved to 90% on 4Lpm which is patient's baseline home O2. Patient would benefit from CPAP or likely Bipap at home given his RV systolic dysfunction;however, patient admits he would likely be non-compliant -Continues with mild volume overload. -Recommend starting Torsemide 40mg PO Daily (previously on 20mg as directed and patient does not think it was daily.) Needs close monitoring of renal function, serum electrolytes, daily weights and strict I&O -2G sodium restriction -Goal serum mag >2.0 and serum K 4.0 -Continue Metoprolol tartrate, and lisinopril as part of HF regimen. -CHF teaching -Continued management of COPD exacerbation by primary team. 4. Atrial fibrillation -Presumed persistent, although there has been no formal OP cardiology follow up in 4 years. -Continue to monitor on telemetry, rate controlled. -Continue Metoprolol tartrate. -BP well controlled. -Heparin gtt discontinued as patient was transitioned over to Eliquis 5mg PO BID -discussed pathophysiology of A-fib with Patient and risk for thromboembolic event. -[id number] score of 2 with recommendation for oral AC therapy (CHF and HTN) 5. HTN -Controlled. -Continue metoprolol and Lisinopril. Will add Torsemide Case has been discussed with Dr. Blair. Further recommendations regarding plan of care as per his assessment. I spent a total of 30 minutes on the date of service in preparation, delivery, documentation of the care provided to the patient excluding any time spent in the performance of separately billed services. SAMY Cates [facility] Admission and Anticipated Discharge Date Admission Date: February 26, 2024 Supervising Physician Co-Signing Physician Notes Attending attestation: Case reviewed with the advanced practitioner. I have personally performed a history and physical examination on the patient. I have reviewed the advanced practitioner's documentation on the date of service referenced in note, and I agree with, and take responsibility for the plan of care. Patient states he has not tolerated positive pressure ventilation in the past and is not interested in another attempt. Continue Eliquis for stroke prophylaxis. Patient tells me he was taking torsemide 20 mg in the morning and 20 mg at bedtime. Will transition him to 40 mg 1 time per day for hopeful improvement with compliance. I spent a total of 20 minutes coordinating, documenting, and providing care for this patient excluding time spent in the performance of separately billed services or time spent by another provider. Oni Blair DO Subjective 02/29/2024: patient seen and examined in follow up today. Sitting up in bed offers no complaints. Continues to report improvement in his breathing. -3.4kg weight deficit since admission. Labs, diagnostics, telemetry, vitals and documentation reviewed. Telemetry shows A-fib rate controlled 60-70s. No acute events overnight Review of Systems Review of Systems: All systems reviewed & are unremarkable except as noted in HPI & below Physical Exam Constitutional: well developed, well nourished and + morbidly obese; no acute distress and not ill appearing Neck: normal visual inspection and trachea midline Respiratory: normal respiratory effort and + respiratory distress Auscultation: + diminished lung sounds (bilateral bases ) and + wheezes (faint exp. wheezes ); no crackles, no rales and no rhonchi Cardiovascular: Rate/Rhythm: + irregularly irregular Heart Sounds: normal S1 and normal S2; no murmur Vessels: no JVD Extremities: + edema (+1 BLE) Skin: no rashes, warm and dry + excoriations (fungal/yeast excoriation noted under axilla/breast region) Psychiatric: A+Ox3, euthymic affect Results & Data Vital Signs (Past 12 Hours) Vital Signs Temp Pulse Pulse Resp BP BP Pulse Ox 02/29/24 15:51 68 02/29/24 15:49 36.7 C 67 18 130/78 90 02/29/24 13:23 76 16 92 02/29/24 11:14 36.5 C 59 L 18 102/58 L 93 02/29/24 09:00 02/29/24 08:00 02/29/24 07:50 36.3 C L 66 19 134/81 91 02/29/24 07:00 112 H 02/29/24 07:00 80 18 92 Pulse Ox O2 Del Method O2 Del Method O2 Flow Rate O2 Flow Rate 02/29/24 15:51 02/29/24 15:49 Nasal Cannula 4 02/29/24 13:23 Nasal Cannula 4 02/29/24 11:14 Nasal Cannula 4 02/29/24 09:00 Nasal Cannula 4 02/29/24 08:00 94 Nasal Cannula 4 02/29/24 07:50 Nasal Cannula 4 02/29/24 07:00 02/29/24 07:00 Nasal Cannula 4 Laboratory Results CBC 02/29/24 Range/Units 06:30 WBC 9.05 (4.8-10.8) K/ul RBC 4.79 (4.70-6.10) M/uL Hgb 14.4 (14.0-18.0) g/dl Hct 47.8 (42.0-52.0) % Plt Count 199 (130-400) K/uL Comprehensive Metabolic Panel 02/29/24 Range/Units 06:30 Sodium 139 (136-145) mmol/L Potassium 3.8 (3.5-5.1) mmol/L Chloride 94 L (98-107) mmol/L Carbon Dioxide 39 H (21-32) mmol/L BUN 29 H (6-23) mg/dl Creatinine 1.00 (0.6-1.4) mg/dl Glucose 91 (70-99(Fasting)) mg/dl Calcium 9.3 (8.6-10.3) mg/dl Intake and Output 02/29/24 02/29/24 02/29/24 06:59 14:59 22:59 Intake Total 500 / 980 600 / 600 Output Total Balance 500 / 980 599 / 599 Intake: IV 100 / 100 Magnesium Sulfate / D5w 1 gm In 100 / 100 100 ml @ 50 mls/hr IV ONE ONE Rx#:[id number] Oral 500 / 980 500 / 500 Output: # Bowel Movements Other: # Unmeasured Voids 1 Weight 187.1 kg Weight Measurement Method Standing Scale
[2024-02-29] MEDS: POLYETHYLENE (MIRALAX) 17 GM PACK PO PRN (20:59)
[2024-03-01 07:27] LABS: Hematocrit (blood only) 44.9 % (42.0-52.0); Hemoglobin 13.9 g/dl (14.0-18.0); Mean Corpuscular Hemoglobin 30.4 pg (25.0-34.0); Mean Corpuscular Volume 98.2 fL (80.0-100.0); Mean Platelet Volume 9.7 fL (9.4-12.4); Platelet Count 179 K/uL (130-400); RDW Coefficient of Variation 14.5 % (11.5-14.5); RDW Standard Deviation 52.9 fL (36.4-46.3); Red Blood Count 4.57 M/uL (4.70-6.10); White Blood Count 8.58 K/ul (4.8-10.8)
[2024-03-01 07:48] LABS: Calcium 9.2 mg/dl (8.6-10.3); Creatinine Clr Calc Pharmacy 133.9 ml/min; Est GFR (African American) 94.4 ml/min; Est GFR (Non-African American) 81.4 ml/min; Magnesium 2.1 mg/dl (1.7-2.4); Potassium 3.8 mmol/L (3.5-5.1)
[2024-03-01] MEDS: TORSEMIDE 20 MG TAB PO SCH (09:02)
[2024-03-01] MEDS: POTASSIUM CHLORIDE 10 MEQ TABCR PO SCH (09:02)
--- NOTE | 2024-03-01 11:30 | Cardiology Progress Note ---
Date of Service March 01, 2024 Assessment & Plan (1) Respiratory failure with hypoxia and hypercapnia: (2) Acute exacerbation of chronic obstructive pulmonary disease: (3) Right heart failure with reduced right ventricular function: (4) Atrial fibrillation with controlled ventricular rate: (5) HTN (hypertension): Plan Assessment: Pleasant 58 year old male with known Pickwickian syndrome, COPD, Chronic Right sided HF and Atrial fibrillation (presumed persistent) that pres ented with several weeks of worsening dyspnea, hypoxia and lower extremity edema. Plan: 1. Respiratory failure with hypoxia 2. Acute COPD exacerbation 3. Right heart failure with reduced Right ventricular function -Hypoxia multifactorial given patients chronic respiratory history. Patient demonstrates improvement today. -BNP with modest elevation on admission. -Echocardiogram suggest LVEF 50-55%, severely dilated right atrium and right ventricle, Moderately reduced RV systolic function, mild TR with pressures of 50-60mmHg -O2 sats have improved to 90% on 4Lpm which is patient's baseline home O2. Patient would benefit from CPAP or likely Bipap at home given his RV systolic dysfunction;however, patient admits he would likely be non-compliant -Patient appears euvolemic on exam -Continue Torsemide 40mg PO QD -2G sodium restriction -Goal serum mag >2.0 and serum K 4.0 -Continue Metoprolol tartrate, and lisinopril as part of HF regimen. Spironolactone on hold due to low blood pressures. -CHF teaching -Continued management of COPD exacerbation by primary team. 4. Atrial fibrillation -Presumed persistent, although there has been no formal OP cardiology follow up in 4 years. -Continue to monitor on telemetry, rate controlled. -Continue Metoprolol tartrate. -BP well controlled. -Continue eliquis 5mg PO BID -discussed pathophysiology of A-fib with Patient and risk for thromboembolic event. -[id number] score of 2 with recommendation for oral AC therapy (CHF and HTN) 5. HTN -Controlled. -Continue metoprolol, Lisinopril and torsemide Patient is doing well from a cardiac perspective. He is to remain on medications as noted above, ok for discharge per cardiology when ok with primary team. Patient will need to establish cardiology care and bee seen within the next 3-5 weeks. labs in one week (BMP) Case has been discussed with Dr. Blair. Further recommendations regarding plan of care as per his assessment. I spent a total of 30 minutes on the date of service in preparation, delivery, documentation of the care provided to the patient excluding any time spent in the performance of separately billed services. SAMY Cates [facility] Admission and Anticipated Discharge Date Admission Date: February 26, 2024 Supervising Physician Co-Signing Physician Notes Attending attestation: Case reviewed with the advanced practitioner. Agree with findings and plans as documented. Patient discharged prior to me having the opportunity to interview and examine him in person. Oni Blair DO Subjective 03/01/2024: Patient seen and examined in follow up today. He is sitting up in bed without complaint. Spoke with hospitalist team today for consideration for discharge. Patient denies any chest pain, pressure, palpitations, no worsening shortness of breath, and reports continued reduction in leg swelling. Labs, vitals, telemetry, diagnostics and documentation reviewed. Telemetry demonstrates A-fib rates 60's-80's. no acute events overnight. Review of Systems Review of Systems: All systems reviewed & are unremarkable except as noted in HPI & below Physical Exam Constitutional: + obese Neck: normal visual inspection and trachea midline Respiratory: normal respiratory effort, lungs clear to auscultation Cardiovascular: Rate/Rhythm: + irregularly irregular Heart Sounds: normal S1 and normal S2; no murmur Vessels: no JVD Extremities: + edema (trace BLE) Skin: no rashes, warm and dry Psychiatric: A+Ox3, euthymic affect Results & Data Vital Signs (Past 12 Hours) Vital Signs Temp Pulse Pulse Pulse Pulse Pulse Pulse 03/01/24 10:36 124 H 116 H 108 H 106 H 110 H 03/01/24 07:29 36.2 C L 70 03/01/24 07:17 65 03/01/24 03:00 36.6 C 67 03/01/24 00:03 64 Resp Resp Resp Resp Resp Resp BP 03/01/24 10:36 24 22 22 20 22 03/01/24 07:29 19 109/61 03/01/24 07:17 18 03/01/24 03:00 18 104/58 L 03/01/24 00:03 18 Pulse Ox Pulse Ox Pulse Ox Pulse Ox Pulse Ox Pulse Ox O2 Del Method 03/01/24 10:36 84 L 90 86 L 91 84 L 04/25/24 07:29 92 Nasal Cannula 03/01/24 07:17 95 Nasal Cannula 03/01/24 03:00 95 Nasal Cannula 03/01/24 00:03 90 Nasal Cannula O2 Flow Rate O2 Flow Rate O2 Flow Rate O2 Flow Rate O2 Flow Rate 03/01/24 10:36 4 6 2 4 03/01/24 07:29 4 03/01/24 07:17 4 03/01/24 03:00 4 03/01/24 00:03 4 Laboratory Results CBC 03/01/24 Range/Units 06:46 WBC 8.58 (4.8-10.8) K/ul RBC 4.57 L (4.70-6.10) M/uL Hgb 13.9 L (14.0-18.0) g/dl Hct 44.9 (42.0-52.0) % Plt Count 179 (130-400) K/uL Comprehensive Metabolic Panel 03/01/24 Range/Units 06:46 Sodium 141 (136-145) mmol/L Potassium 3.8 (3.5-5.1) mmol/L Chloride 96 L (98-107) mmol/L Carbon Dioxide 42 H* (21-32) mmol/L BUN 29 H (6-23) mg/dl Creatinine 1.00 (0.6-1.4) mg/dl Glucose 85 (70-99(Fasting)) mg/dl Calcium 9.2 (8.6-10.3) mg/dl Intake and Output 02/29/24 03/01/24 03/01/24 22:59 06:59 14:59 Intake Total 595 / 1495 300 / 1495 Output Total 1 / 2 Balance 595 / 1493 299 / 1493 Intake: Oral 595 / 1395 300 / 1395 Output: # Bowel Movements 1 / 2 Other: # Unmeasured Voids 1 2 Weight 188.241 kg Weight Measurement Method Built in [facility]
--- NOTE | 2024-03-01 16:46 | Discharge Summary ---
Discharge Summary Date of Service March 01, 2024 Notes For Next Care Provider Medication Changes From Visit Hold spironolactone until told to resume per cardiology 2/2 relatively low BP 40mg torsemide at once in am for compliance ease rather than 20mg bid Start metoprolol 12.5mg BID Start eliquis 5 mg BID Admission HPI Per Admitting Provider History obtained from patient and records. Medical history significant for chronic right-sided heart failure (EF 55 to 60%, TTE 2019), Pickwickian syndrome/cor pulmonale as per records, chronic respiratory failure secondary to COPD on home O2, hypertension, history TIA, prediabetes, past tobacco abuse. Last confinement September 2020 for right-sided heart failure. Patient discharged on diuretic Rx. Probable sleep apnea and OHS as per documentation. Outpatient sleep study recommended. Patient mollified for oxygen at bedtime with abnormal nocturnal nocturnal oximetry. Patient noted unquantified weight gain/fluid retention since last year. Did not see any outpatient providers last year. Patient compliant with medications. Some SOB on exertion. Patient has not had sleep study following 2019 confinement. Last week, patient noted junky cough symptoms. No fever, no chills. Not sure about sick contacts. Denies aspiration. O2 sats of 50s documented on home pulse ox on ambulation. Increase fluid retention/leg swelling noted. Chest pain from coughing. Denies abdominal pain. Solu-Medrol, neb treatment, doxycycline, and Lasix administered at the ER. Medical History as above Surgical History : None Family History : COPD, DM Personal/Social history : Past tobacco abuse, rare EtOH intake, disabled Admission Exam Per Admitting Provider GENERAL: Comfortable, morbidly obese, no respiratory distress, unkempt, looks older than stated age SKIN: Normal color, warm HEENT: Bespectacled, pink palpebral conjunctivae, no ptosis, dry buccal mucosa, nasal cannula in place NECK : Supple, short neck, no tenderness CHEST : Decreased breath sounds, occasional expiratory wheezes, no tenderness HEART : Irregular, no obvious murmurs ABDOMEN: Marked distention, nontender EXTREMITIES : Bilateral LE swelling, no LE tenderness, no other conspicuous deformities noted NEUROLOGIC : Coherent, no facial asymmetry, tremulous, gait and stance not assessed Principal Dx & Hospital Course #1 = Principal Diagnosis (1) Respiratory failure with hypoxia and hypercapnia: (2) Right heart failure with reduced right ventricular function: (3) CHF (congestive heart failure): (4) Atrial fibrillation with controlled ventricular rate: (5) COPD (chronic obstructive pulmonary disease): Plan Mr. Lewis is a 58-year-old male with morbid obesity/pickwickian syndrome, COPD, chronic right-sided heart failure, atrial fibrillation who presented to ED with worsening shortness of breath, hypoxia and leg swelling on 02/25 and treated for acute on chronic right sided heart failure as well as acute COPD exacerbation. Patient with out formal follow up with Cardiology for over 4 years. Patient was IV diuresed, and improved with steroids and abx. Patient started on eliquis 2/2 [id number] score of 2. Patient reports no acute concerns overall on discharge. He was educated by Respiratory Therapy on proper and continuous use of oxygen. He was encouraged to consider NIV and perhaps pursue sleep study but he declines. #Acute on chronic right-sided CHF #Pickwickian syndrome/OHS with chronic respiratory failure with hypoxia and hypercarbia -On 4 L NC which is home requirement. -Echocardiogram suggest LVEF 50-55%, severely dilated right atrium and right ventricle, Moderately reduced RV systolic function, mild TR with pressures of 50-60mmHg -Hold aldactone given relative hypotension -Continue with Torsemide 40mg daily rather than 20 bid Recommended formal polysomnography to be discussed with PCP however, patient has indicated likely noncompliance with NIV--continue to encourage #Persistent Atrial fibrillation -Continue to monitor on telemetry, rate controlled. -Continue Metoprolol tartrate BID -Continue Eliquis 5mg PO BID #HTN -Controlled. -Continue metoprolol, Lisinopril, Torsemide #COPD with mild exacerbation- improved with initial management. 2 days of prednisone and remaining course of abx sent to pharmacy. #Morbid obesity- BMI 58. weight loss recommended. F/u with PCP as OP with r delfinaal to weight management clinic. Discharge Exam Constitutional WD/WN, vitals as above Respiratory difficult to appreciate 2/2 habitus Cardiovascular irregularly irregular Updated Medication List Medication Instructions Recorded Confirmed Type albuterol sulfate 90 mcg/actuation 2 puff inhalation QID 09/04/20 02/26/24 History aerosol inhaler aspirin 81 mg tablet,delayed 81 mg PO DAILY 09/04/20 02/26/24 History release fluticasone propionate 110 1 puff inhalation Q12H 09/04/20 02/26/24 History mcg/actuation HFA aerosol inhaler hydrocodone 5 mg-acetaminophen 325 1 tab PO Q6H PRN Pain 09/04/20 02/26/24 History mg tablet lisinopril 40 mg tablet 20 mg PO BID 09/04/20 02/26/24 History Oxygen Home [id number] #1 ea 09/10/20 02/26/24 Rx spironolactone 25 mg tablet 12.5 mg (1/2 x 25 mg) PO DAILY #30 09/10/20 02/26/24 Rx tabs acetaminophen 500 mg tablet 1,000 mg PO Q6H PRN Pain 02/26/24 02/26/24 History (Tylenol Extra Strength) apixaban 5 mg tablet (Eliquis) 5 mg PO BID #60 tabs 02/29/24 Rx doxycycline hyclate 100 mg capsule 100 mg PO BID #7 caps 03/01/24 Rx metoprolol tartrate 25 mg tablet 12.5 mg (1/2 x 25 mg) PO BID #30 03/01/24 Rx tabs prednisone 20 mg tablet 40 mg (2 x 20 mg) PO DAILY #4 tabs 03/01/24 Rx torsemide 20 mg tablet 40 mg (2 x 20 mg) PO QAM #60 tabs 03/01/24 Rx Hospital Stay Data Consultations 02/26/24 19:46 ED Decision to Admit Stat 02/27/24 00:09 Consult Cardiology Routine Diagnostic Imagining Performed 02/27/24 00:09 US venous doppler LE BI Routine Pending Results Patient Have Any Pending Studies at Discharge: No Discharge Instructions Given to Patient (Per Discharging Provider) You were admitted for shortness of breath and treated for heart failure exacerbation and COPD exacerbation. For your COPD, you will continue the following: -Prednisone 40mg (2x20mg tablets) for the next two days, starting tomorrow 03/02 -Doxycycline 100mg, 1 tablet two times a day, your next dose is this evening 03/01 For your heart failure, the following changes were made: -Please take your Torsemide 40mg in the morning rather than the 20mg two times a day -Please hold your spironolactone 12.5mg until told to resume by Cardiology -Please start Metoprolol 12.5mg two times a day (a half of a tablet), your next dose is this evening. Total Time Total Time Spent Total Time Spent (In Minutes): 35
== END 2024-03-01 13:55 | disposition home or self-care (01) | DRG 291 ==
LOC: ED 17:40 → SUATTDRO 22:36 → 2S 22:36